=== PATIENT | male | born 1945 | race Caucasian/White ===

== ENCOUNTER 2016-08-10 01:11 | Inpatient (IN) | payer OTHER, MEDICARE ==
--- NOTE | 2016-08-10 01:18 | EDPHY ---
H & P HPI/ROS: HPI CHIEF COMPLAINT: Fall out of bed, left shoulder pain, mid thoracic pain, alcohol use HISTORY OF PRESENT ILLNESS: This patient very pleasant 71-year-old male significant past medical history for daily alcohol use, alcoholism, rotator cuff injury of his left shoulder, thyroid disease hypertension, he presents emergency room by EMS after he fell out of bed. He lives independently by himself. His recently. He has been drinking more than normal. He tells me that he fell out of the bed landing on his left shoulder and mid thoracic back. he now has left shoulder pain and mid thoracic back pain. He denies head strike, denies neck pain, denies chest pain or shortness of breath. Patient does smell of alcohol however he is not slurring his speech. Past Medical History: Multiple medical problems including anxiety, depression, hypertension, rotator cuff injury, history of C1 fracture, daily alcohol use and abuse Past Surgical History: C1 fracture requiring halo, left rotator cuff injury surgery Social History: daily alcohol use, lives independently, alone Family History: Noncontributory ROS REVIEW OF SYSTEMS: A comprehensive 10 point review of systems is otherwise negative aside from elements mentioned in the history of present illness. Exam Constitutional smells of alcohol triage nursing summary reviewed, vital signs reviewed, awake/alert. Eyes normal conjunctivae and sclera, EOMI, PERRLA. HENT normal inspection, atraumatic, moist mucus membranes, no epistaxis, neck supple/ no meningismus, no raccoon eyes. Respiratory clear to auscultation bilaterally, normal breath sounds, no respiratory distress, no wheezing. Cardiovascular left chest wall: Subcutaneous air present, does track of his left lateral neck, rate normal, regular rhythm, no murmur, no edema, distal pulses normal. Gastrointestinal soft, non-tender, no rebound, no guarding, normal bowel sounds, no distension, no pulsatile mass. Genitourinary no CVA tenderness. Musculoskeletal tender palpation left posterior scapula, also tender palpation left lateral humeral head, however full range of motion of left shoulder, distally neurovascular intact good cap refill, good pulse, also tender palpation mid thoracic, no step-offs or crepitus, there is ecchymosis present that appears to be a few days old. no midline vertebral tenderness, full range of motion, no calf swelling, no tenderness of extremities, no meningismus, good pulses, neurovascularly intact. Right hand 2nd and 3rd digit or in a finger splint with padding Skin pink, warm, & dry, no rash, skin atraumatic. Neurologic awake, alert and oriented x 3, AAOx3, moves all 4 extremities equally, motor intact, sensory intact, CN II-XII intact, normal cerebellar, normal vision, normal speech. Psychiatric normal mood/affect. Heme/Lymph/Immune no lymphadenopathy. Differential Diagnosis: Includes but is not limited to in a particular order, multiple contusions, recurrent falls from alcohol abuse, T-spine compression fracture, left shoulder contusion, left shoulder fracture, scapular fracture, humerus fracture, dislocation Medical Decision Making: This patient had an x-ray of his left shoulder, x-ray of thoracic spine to rule out significant trauma, two view chest x-ray, patient have a breath alcohol will re-evaluate. Re-evaluation: Alcohol level at this time 2:11 a.m.: 241 ED x-ray chest two view: this shows a large amount of subcutaneous air on the left-sided chest field I do not appreciate a pneumothorax there is an AC joint separation left clavicle. Due to this patient's large amount of subcutaneous air on x-ray I will perform a CT chest with IV contrast for trauma to make sure he does not multiple rib fractures and underlying pneumohemothorax. ED x-ray thoracic spine: significant degenerative joint disease, no obvious compression fracture ED x-ray left shoulder: shows AC joint separation, subcutaneous gas, otherwise unremarkable CT scan of the Chest with IV contrast. The results of the study arethis shows multiple injuries including a moderate-sized left pneumothorax, he has a scapular fracture in 2 places the acromion as well as the coracoid process, he also has a 1st anterior acute left rib fracture, he has subacute rib fractures of bilaterally the 8th 9th and 10th ribs on both sides right and left, he also has a 7th rib fracture on the right, atelectasis at the base of left lung aorta is normal The study was read by Dr. Guevara. I viewed the images myself on the PACS system. 0443: re-evaluation this time this patient is resting comfortably no acute distress denies shortness of breath his pulse ox is been 92-96% on room air. I have placed him on a non-rebreather at this time due to CT scan showing a moderate size pneumothorax, multiple rib fractures and scapular fracture. This time I have consulted trauma surgery for evaluation of this patient. 0446: I will consult Orthopedics about this patient scapular fracture. I did speak with Dexter Ellison at this time with Orthopedics he will consult on him in the morning. 0516: Spoke with Dr. Howard he did request that I do a CT scan of the head and cervical spine abdomen pelvis given the extent of his chest trauma, In that this patient has alcohol on board. However this patient has been mentating appropriately with me during the ER visit. However given the extent of trauma to his chest and alcohol I will proceed with a CT scan of his head cervical spine and of the abdomen pelvis. CT scan of the head without IV contrast The results of the study are negative for acute traumatic injury The study was read by Dr. Guevara I viewed the images myself on the PACS system. CT scan of the cervical spine without IV contrast. The results of the study are negative for acute traumatic injury. The study was read by Dr. Guevara I viewed the images myself on the PACS system. CT scan of the abdomen pelvis with IV contrast. The results of the study are negative for acute traumatic injury The study was read by Dr. Guevara I viewed the images myself on the PACS system. 0632: patient tells me he is no longer on Xarelto. At this time I did re- evaluate him he is resting comfortably he is on a non-rebreather mask due to is mild to moderate size pneumothorax. Dr. Howard is here in the emergency room evaluating the patient at this time. Source: Patient, EMS - Personal History Tetanus Vaccine Date: 2010 - Medical/Surgical History Hx Asthma: No Hx Chronic Respiratory Disease: No Hx Diabetes: No Hx Cardiac Disease: Yes Hx Renal Disease: No Hx Cirrhosis: No Hx Alcoholism: Yes Hx HIV/AIDS: No Hx Splenectomy or Spleen Trauma: No Other PMH: PMH: anxiety, bipolar, hypothyroid, HTN, chronic shoulder pain, nacrotic and etoh abuse, C1 fracture 2/2 fall. PSH: rotator cuff surgeryx2, C1 fx and fusion (in [facility]) - Social History Smoking Status: Former smoker Constitutional: Initial Vital Signs Temperature (C) 36.7 C 08/10/16 01:23 Heart Rate 73 08/10/16 01:23 Respiratory Rate 16 08/10/16 01:23 Blood Pressure 136/78 H 08/10/16 01:23 O2 Sat (%) 92 08/10/16 01:23 O2 Delivery Mode Non-Rebreather Mask O2 (L/minute) 12 Allergies/Adverse Reactions: Penicillins Allergy (Verified 07/29/16 21:56) Sulfa (Sulfonamide Antibiotics) Allergy (Verified 07/29/16 21:56) Home Medications: Medication Instructions Recorded ACETAMINOPHEN 06/07/16 Atenolol 06/07/16 Cyclobenzaprine 06/07/16 Diphenhydramine HCl 06/07/16 Divalproex ER 06/07/16 Folic Acid 06/07/16 GABAPENTIN 06/07/16 HYDROCODONE BIT/ACETAMINOPHEN 06/07/16 Herbal Drugs 06/07/16 IBUPROFEN 06/07/16 Imodium 2 mg (*) 06/07/16 Levothyroxine 06/07/16 Modafinil 06/07/16 Oxycodone HCl 06/07/16 Vitamin B12 06/07/16 ZOLPIDEM TARTRATE 06/07/16 Zantac 06/07/16 traZODone 06/07/16 Medical Decision Making - Data Points Laboratory Results: Laboratory Results 08/10/16 02:50 08/10/16 02:50 08/10/16 02:50 WBC 8.34 10^3/uL (3.80-9.50) RBC 3.87 L 10^6/uL (4.40-6.38) Hgb 13.3 L g/dL (13.7-17.5) Hct 39.5 L % (40.0-51.0) MCV 102.1 H fL (81.5-99.8) MCH 34.4 H pg (27.9-34.1) MCHC 33.7 g/dL (32.4-36.7) RDW 13.0 % (11.5-15.2) Plt Count 173 10^3/uL (150-400) MPV 9.7 fL (8.7-11.7) Neut % (Auto) 60.8 % (39.3-74.2) Lymph % (Auto) 24.7 % (15.0-45.0) [place] % (Auto) 12.2 % (4.5-13.0) Eos % (Auto) 0.6 % (0.6-7.6) Baso % (Auto) 1.1 % (0.3-1.7) Nucleat RBC Rel Count 0.0 % (0.0-0.2) Absolute Neuts (auto) 5.07 10^3/uL (1.70-6.50) Absolute Lymphs (auto) 2.06 10^3/uL (1.00-3.00) Absolute Monos (auto) 1.02 H 10^3/uL (0.30-0.80) Absolute Eos (auto) 0.05 10^3/uL (0.03-0.40) Absolute Basos (auto) 0.09 10^3/uL (0.02-0.10) Absolute Nucleated RBC 0.00 10^3/uL (0-0.01) Immature Gran % 0.6 % (0.0-1.1) Immature Gran # 0.05 10^3/uL (0.00-0.10) PT 12.7 SEC (12.0-15.0) INR 0.96 (0.83-1.16) APTT 20.8 L SEC (23.0-38.0) Sodium 140 mEq/L (134-144) Potassium 4.9 mEq/L (3.5-5.2) Chloride 103 mEq/L (97-110) Carbon Dioxide 26 mEq/l (22-31) Anion Gap 11 mEq/L (8-16) BUN 17 mg/dL (7-23) Creatinine 1.0 mg/dL (0.7-1.3) Estimated GFR > 60 Glucose 84 mg/dL (70-100) Calcium 8.6 mg/dL (8.5-10.4) Ethyl Alcohol 216 H mg/dL (0-10) Medications Given: Discontinued Medications Sodium Chloride (Ns) 1,000 mls @ 0 mls/hr IV ONCE ONE PRN Reason: Wide Open Stop: 08/10/16 02:50 Last Admin: 08/10/16 03:31 Dose: 1,000 mls Sodium Chloride (Ns) 1,000 mls @ 0 mls/hr IV ONCE ONE PRN Reason: Wide Open Stop: 08/10/16 05:16 Last Admin: 08/10/16 05:19 Dose: 1,000 mls Departure - Departure Disposition: [facility] Inpatient Acute Clinical Impression: Fall Qualifiers: Encounter type: initial encounter Qualifier Code: (W19.XXXA) Unspecified fall, initial encounter Ribs, multiple fractures Qualifiers: Encounter type: initial encounter Fracture type: closed Laterality: bilateral Qualifier Code: (S22.43XA) Multiple fractures of ribs, bilateral, initial encounter for closed fracture Scapula fracture Qualifiers: Encounter type: initial encounter Scapula location: coracoid process Fracture type: closed Fracture alignment: nondisplaced Laterality: left Qualifier Code: ( S42.135A) Nondisplaced fracture of coracoid process, left shoulder, initial encounter for closed fracture Pneumothorax Qualifiers: Pneumothorax type: traumatic Encounter type: initial encounter Qualifier Code: (S27.0XXA) Traumatic pneumothorax, initial encounter Condition: Serious
[2016-08-10] MEDS ORDERED: NS 1,000 ML IV ONE ×2 (02:49→05:15)
[2016-08-10 03:11] LABS: % IMMATURE GRANULYOCYTES 0.6 % (0.0-1.1); ABSOLUTE IMMATURE GRANULOCYTES 0.05 10^3/uL (0.00-0.10); ADD DIFF? NO; ADD MORPH? NO; ADD SCAN? NO; ATYPICAL LYMPHOCYTE FLAG 0 (0-99); FRAGMENT RBC FLAG 0 (0-99); HEMATOCRIT 39.5 % (40.0-51.0); HEMOGLOBIN 13.3 g/dL (13.7-17.5); LEFT SHIFT FLG 0 (0-99); LIPEMIA HEMOLYSIS FLAG 80 (0-99); MEAN CELL HEMOGLOBIN 34.4 pg (27.9-34.1); MEAN CELL HEMOGLOBIN CONCENTR. 33.7 g/dL (32.4-36.7); MEAN CELL VOLUME 102.1 fL (81.5-99.8); MEAN PLATELET VOLUME 9.7 fL (8.7-11.7); PLATELET CLUMPS FLAG 0 (0-99); PLATELET COUNT 173 10^3/uL (150-400); RED BLOOD CELL COUNT 3.87 10^6/uL (4.40-6.38)
[2016-08-10 03:23] LABS: INR 0.96 (0.83-1.16); PROTIME(PATIENT) 12.7 SEC (12.0-15.0)
[2016-08-10 03:26] LABS: APTT 20.8 SEC (23.0-38.0)
[2016-08-10] MEDS ORDERED: IOPAMIDOL (ISOVUE-300) 50 ML VIAL IV ONE ×2 (03:32→05:17)
[2016-08-10 03:44] LABS: ANION GAP 11 mEq/L (8-16); CALCIUM 8.6 mg/dL (8.5-10.4); CARBON DIOXIDE 26 mEq/l (22-31); CHLORIDE 103 mEq/L (97-110); GLOMERULAR FILTRATION RATE > 60; GLUCOSE 84 mg/dL (70-100); POTASSIUM 4.9 mEq/L (3.5-5.2); SODIUM 140 mEq/L (134-144)
[2016-08-10 04:05] LABS: ETHANOL SERUM 216 mg/dL (0-10)
[2016-08-10] MEDS ORDERED: ONDANSETRON DISINTEGRATING 4 MG TAB PO PRN (07:17)
[2016-08-10] MEDS ORDERED: HYDROmorphONE/DILAUDID 1 MG/ML SYR IVP PRN (07:24)
[2016-08-10] MEDS: KETOROLAC 30 MG/1 ML SDV IVP SCH ×4 (07:30→23:38)
[2016-08-10] MEDS ORDERED: LR 1,000 ML IV SCH (07:30)
[2016-08-10] MEDS ORDERED: KETOROLAC 30 MG/1 ML SDV ONE (07:35)
[2016-08-10] MEDS: LIDOCAINE 5% 1 EA PATCH TD SCH (08:48)
[2016-08-10] MEDS: FAMOTIDINE 20 MG TAB PO SCH ×2 (08:49→20:18)
[2016-08-10] MEDS ORDERED: ACETAMINOPHEN 325 MG TAB ONE (08:50)
[2016-08-10] MEDS ORDERED: ACETAMINOPHEN 500 MG TAB ONE (08:52)
[2016-08-10] MEDS: ACETAMINOPHEN 500 MG TAB PO SCH ×3 (08:52→20:22)
--- NOTE | 2016-08-10 09:43 | DX ---
Left shoulder series 3 views 0215 hours. History: Fell from bed with left shoulder pain. Findings: There is a large amount of soft tissue gas over the left hemithorax extending to the left l ower neck. There is fracture suspected of the base of the coracoid process. No additional fractures a re delineated about the left shoulder. There is elevation of the distal head left clavicle at the AC joint compatible with grade 3 injury. The left upper ribs appear to be intact. The glenohumeral joint appears to be normal. Impression: 1. Fracture suspected base of the coracoid process. 2. Grade 3 separation left AC joint. 3. Glenohumeral joint appears to be normal. 4. Soft tissue gas over the left hemithorax extending to the left lower neck.
--- NOTE | 2016-08-10 10:15 | DX ---
Thoracic spine series AP and lateral 0210 hours. History: Fell out of bed. Pain. Findings: Comparison to July 29, 2016. Vertebral body heights are well-maintained. There are no subluxations. There is stable ankylosis mid and lower thoracic spine with hypertrophic osteophytes also noted. No fractures are evident. Soft tis nilsa gas is seen left lower neck and upper hemithorax region. Impression: 1. No acute osseous abnormality seen about the thoracic spine. 2. 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 3. Soft tissue gas left lower neck.
--- NOTE | 2016-08-10 10:36 | DX ---
PA and lateral chest x-ray 0207 hours. History: Recent fall with left shoulder and back pain. Findings: Comparison to April 21, 2016. Heart size and pulmonary vasculature are normal. Moderate soft tissue gas is seen over the left hemit horax extending into the left lower neck. There is a mild left-sided pneumothorax measuring about 17 mm at the left apex. Grade 3 left AC joint separation is noted. The glenohumeral joint appears to be normal. No acute rib fractures are identified. There is old healed fracture anterolateral left 5th ri b and lateral right 8th and 9th ribs. Thoracic spine vertebral body heights are well-maintained. Ther e is ankylosis of the mid to lower thoracic spine. Impression: 1. Small left-sided pneumothorax. 2. Subcutaneous gas seen over the left hemithorax to the left lower neck. 3. Old healed bilateral rib fractures.
--- NOTE | 2016-08-10 12:02 | GHP ---
[f rep st] HISTORY AND PHYSICAL DATE OF ADMISSION: 08/10/2016 ADMITTING DIAGNOSES: 1. Intoxication. 2. Fall. 3. Pneumomediastinum and subcutaneous emphysema, left chest. 4. Multiple bilateral subacute rib fractures. 5. Small left pneumothorax. 6. Left basal atelectasis. 7. Ectatic ascending aorta at 3.9 cm. HISTORY: Mr. Jung is well-known to the emergency room. He is a 71-year-old white male, who has been drinking heavily since his several years ago. He was admitted to this hospital in 2015 for a C1 fracture. At the time, he was noted to be bipolar, abused alcohol, had hypertension, was hypothyroid, and had a pulmonary embolism. He was placed on Xarelto. He has been admitted to the emergency room for falls on 06/07/2016, 07/20/2016, , and . On 07/29/2016, there was a fracture of his 2nd digit right hand. Today there is a grade 3 left AC separation, and a suspected fracture of the base of the left coracoid process. According to his report, he was in bed with silk sheets, slid out of bed, and suffered the above injuries. His blood alcohol by breathalyzer (EMS) was 300. His alcohol admission was 216. He was seen in the emergency room and thought to have minimal injuries. A chest x-ray was performed, which showed the subcutaneous emphysema and the left AC grade 3 separation. This prompted a CT scan of the chest, which showed the above mentioned findings. Because he had more injuries than expected and was intoxicated, a CT of his head, neck, and abdomen was also performed. The preliminary reports show no distinct findings. I saw this patient in the emergency room. PAST MEDICAL HISTORY: He drinks 7-9 drinks per day. He does not smoke. He is allergic to sulfa drugs as manifested by a rash. He has bipolar changes and takes Depakote 500 mg in the morning and 1000 mg in the evening. He takes lorazepam for anxiety. He uses atenolol for tremors caused by the Depakote. He takes levothyroxine 125 mcg for hypothyroidism of 6 years' duration. He takes losartan. Surgeries include rotator cuff repair, twice on the right once the left. He has had an appendectomy. There is no history of rheumatic fever, tuberculosis, hepatitis, or Transfusions. REVIEW OF SYSTEMS: He has lenses for visual correction. He has 2 lost teeth. Review of systems otherwise negative. There are no limits on his activities. No history of steroid use. FAMILY HISTORY: Mother at age 80. Father at 73. He had several myocardial infarctions and his first 1 was at age 60. The patient's older sister in her 50s due to COPD. He is followed in by a brother, who is 64 years old. His younger brother in his 20s. PHYSICAL EXAMINATION: GENERAL: He is seen lying in the ER. He has not had any pain medication at this point. NEUROLOGIC: He is awake and alert and oriented. There are no focal or lateralizing neurologic findings. Strength is 5/5 in all muscle groups. His skull is normocephalic and atraumatic. HEENT: His neck is nontender to palpation. HEENT: His extraocular movements are intact. He has normal dental occlusion. There are no carotid bruits identified. His thyroid is not enlarged. BACK: Unremarkable to visual inspection. He is tender over his scapula. LUNGS: Breath sounds are equal and symmetrical bilaterally. CARDIAC: Shows S1, S2 to be normal. No split of S2. Without murmurs, rubs, or gallops. CHEST: Stable to AP and lateral compression. ABDOMEN: Soft and nontender. There are hypoactive bowel sounds present. MUSCULOSKELETAL: Pelvis is stable to AP and lateral compression. Extremities are ranged and found to be intact. PLAN: I will admit him for pain control. I am concerned about his ability to return to his current setting due to his fall risk. Will evaluate him for his alcohol issues. At this point, I am not going to treat the small pneumothorax, but rather follow it. This may be amenable to a Heimlich valve tube. /[id number]/MODL MTDD
--- NOTE | 2016-08-10 13:22 | GCON ---
[f rep st] CONSULTATION INPATIENT CONSULTATION DATE OF CONSULTATION: 08/10/2016 CHIEF COMPLAINT: Fall out of bed, left shoulder pain, back pain, and alcohol abuse. HISTORY OF PRESENT ILLNESS: The patient is a 71-year-old, [id number] gentleman with a recur rent history of alcoholic falls. He presented to the emergency room tonight after slipping off his b ed and landing across his left shoulder and back. He complained of back pain and shoulder pain. He has a history of [address] Montero to his right shoulder, 1 rotator cuff repair pr eviously to his left shoulder, again by Dr. Montero. He has also seen Dr. Briones for his shoulder pain previously. His has recently, and he has been increasing his alcohol usage. He has a his tory of a C1 fracture from an alcoholic fall. States that he did not lose consciousness, did not str paco his head, neck, or lower extremities. PAST MEDICAL HISTORY: Depression, hypertension, rotator cuff surgery, C1 fracture, daily alcohol use and abuse. SURGICAL HISTORY: C1 fracture requiring a halo, rotator cuff surgeries as above. SOCIAL HISTORY: Positive alcohol use, and lives alone. His of 33 years recently after a p rotracted 5-year course. REVIEW OF SYSTEMS: Negative for current chest pain, shortness of breath, belly pain. Positive for b ack pain. Denies any numbness or tingling in his lower extremities. PHYSICAL EXAMINATION: GENERAL: This is a healthy gentleman, in no acute distress. He is pleasant, cooperative with examination. MUSCULOSKELETAL: Minimal examination of his left upper extremity was carried out currently, however, he has active elevation of his arm to 45 degrees, internal rotation t o his abdomen, and external rotation of 10 degrees. He has intact sensation to light touch across th e axillary, radial, ulnar, and median nerve distributions. His right hand is in a dorsal extension b lock splint in 30 degrees of flexion at the PIP joints following a recent dislocation of his index PI P finger joint. This dressing was not removed. Bilateral lower extremities are not examined. IMAGING: Radiographs: CT of his chest and x-ray of his left shoulder specifically demonstrate a fra cture at the base of the coracoid, which extends to the midportion of the glenoid. There is slight c omminution, but no articular step-off evident. He has a fracture at the posterolateral corner of his acromion with displacement of 2-3 mm. There is degenerative change. The ball and socket are reduce d. IMPRESSION: Scapular fractures, as above, left shoulder. Chronic rotator cuff deficiency. TREATMENT PLAN: Today, I spent 40 minutes in [id number] discussion. With regard to his fractures, I have recommended passive and then active range of motion as tolerated. No resistance. Sling as n eeded for pain. Ice and elevation at rest. I have discussed that these fractures sometimes would re quire operative intervention. However, given his alcoholic abuse history and recurrent falls, I do n ot feel he is an appropriate candidate for any surgical intervention. He requires psychiatric evalua tion and treatment for advanced depression currently. He will follow up in 1 month for repeat radiog raphs of his shoulder and ongoing treatment based upon the fracture healing and/or displacement. /[id number]/MODL
--- NOTE | 2016-08-10 14:10 | CT ---
CT Chest With Contrast August 10, 2016 Indication: Trauma. Subcutaneous emphysema. Technique: 5 mm thick collimated slices were obtained through the chest following uneventful adminis tration of 90 mL Isovue-300. Sagittal multiplanar reconstructions were performed of the thoracic spin e. Dose reduction techniques were utilized. Findings: Moderate left anterobasilar pneumothorax, pneumomediastinum, and extensive subcutaneous emp hysema in the neck extending down the left chest wall and into the left flank. No right-sided pneumot horax. An acute nondisplaced anterior left 1st rib fracture is present on image 62 of series 4. An acute two site left scapular fracture consists of fracture planes coursing through the base of the acromion an d base of the coracoid process. No acute sternal or spinal fracture. Bilateral subacute low right rib fractures (7-11 on the right and 8-10 on the left) have healing callus. Diffuse idiopathic skeletal hyperostosis is present throughout the thoracic spine. No mediastinal hematoma or evidence of acute aortic injury. The ectatic ascending aorta measures 3.9 cm AP. The normal caliber descending thoracic aorta has mild calcified plaque. No pericardial or righ t-sided effusion. Small left effusion. Lungs have minimal central acinar emphysema throughout the upper and midlung zones and benign linear scars versus atelectasis in the right upper lobe and right lower lobe. Central airway is clear. No lymphadenopathy or mass present throughout the axilla, mediastinum, pulmonary rob, or imaged port ion of the upper abdomen. Impression: 1. Moderate left pneumothorax accompanied by pneumomediastinum and extensive subcutaneous emphysema a long left chest wall. 2. Acute nondisplaced anterior left 1st rib fracture. 3. Two site left scapular fracture (base of acromion and base of coracoid process). 4. No evidence of acute aortic injury. 5. Ectatic ascending aorta (3.9 cm) requires surveillance. 6. Numerous old/subacute low bilateral rib fractures. 7. Minimal centrilobular emphysema. 8. Trace left pleural effusion. The study was performed as an emergency on-call case and discussed by telephone with Dr. Martinez at 4 :40 a.m. The final interpretation is concordant with the original communication.
[2016-08-10] MEDS: clonazePAM 0.5 MG TAB PO SCH ×2 (14:18→20:17)
[2016-08-10] MEDS: LEVOTHYROXINE 125 MCG TAB PO SCH (14:18)
[2016-08-10] MEDS: LOSARTAN POTASSIUM 50 MG TAB PO SCH (14:18)
[2016-08-10] MEDS: DIVALPROEX ER 500 MG TAB PO SCH ×2 (14:18→20:17)
--- NOTE | 2016-08-10 14:23 | CT ---
CT Head (Without Contrast) August 10, 2016 Indication: Trauma. Technique: Standard noncontrast head CT protocol utilizing 5 mm thick collimated slices and field of view of 23 cm. Dose reduction techniques were utilized. Findings: No intracranial hemorrhage, mass lesion, swelling, or extraaxial fluid collection. The vent ricles are normal caliber and midline. The el and white matter has normal attenuation. No evidence of ischemia. No acute skull or facial fracture. An old nasal fracture has minimal deformity and hardw are present along the right infraorbital rim and right lateral orbital wall. Subcutaneous emphysema t racks superiorly to the skull base. No pneumocephalus. Impression: 1. Normal brain. No acute intracranial hemorrhage or contusion. 2. No acute fracture. The study was performed as an emergency on-call case and discussed by telephone with Dr. Martinez at 6 :50 a.m. The final interpretation is concordant with the original communication.
--- NOTE | 2016-08-10 14:30 | CT ---
CT Cervical Spine August 10, 2016 Indication: Trauma. Comparison: CT cervical spine dated July 29, 2016. Technique: 1.25-mm thick axial collimated slices were obtained from the occiput through superior endp late of T2. The data was reconstructed in the sagittal and coronal plane. Both soft tissue and bone w indows were reviewed. Dose reduction techniques were utilized. Findings: No acute fracture or prevertebral soft tissue swelling. The anterior cervical diskectomy an d fusion construct extending from C3-C6 is well seated. No perihardware fracture or lucency has devel oped. Incomplete fusion of the C4 and C5 vertebral bodies is unchanged. Moderate to severe bilateral neural foraminal stenoses at C4-C5, C5-C6, and C6-C7, worse on the left at C6-C7 is unchanged. [place] bcutaneous emphysema tracks up the left neck to the skull base. Impression: 1. No acute fracture or soft tissue swelling. 2. Incomplete bony fusion of the C4 and C5 vertebral bodies. C3-C6 ACDF remains well seated. 3. If the patient has persistent pain or neurologic deficits, consider cervical spine MRI. The study was performed as an emergency on-call case and discussed by telephone with Dr. Martinez at 6 :50 a.m. The final interpretation is concordant with the original communication.
--- NOTE | 2016-08-10 14:40 | CT ---
CT Scan of the Abdomen and Pelvis (With Contrast) August 10, 2016 Indication: Trauma. Technique: Dilute contrast was given orally prior to scanning. 90 mL of Isovue 300 were given intra venously by machine power injection. Multidetector helical CT imaging was performed from the diaphra gm to the symphysis pubis. Dose reduction techniques were utilized. Findings: No pneumoperitoneum, free fluid, mesenteric edema, lymphadenopathy, or mass. The liver, spleen, pancreas, adrenal glands, and kidneys all homogeneously enhance. No evidence of so lid organ laceration or contusion. The urinary bladder is well opacified with contrast. No evidence o f bladder injury or mass. No hydronephrosis. No acute lumbar spine or pelvic fracture. Numerous subacute low bilateral rib fractures are enumerate d on the chest CT reported separately. An old left inferior pubic ramus fracture is healed with mild deformity. Subcutaneous emphysema tracks down the left flank superficial to the abdominal wall muscul ature. A single 3-mm calcified stone resides in the neck of the gallbladder. The gallbladder is otherwise no rmal. No biliary dilation or evidence of common bile duct stone. The abdominal aorta is normal caliber with mild calcified plaque. No aneurysm. Impressions: 1. No evidence of solid organ or bowel injury. 2. No acute lumbar spine or pelvic fracture. 3. Cholelithiasis. 4. Normal caliber atherosclerotic abdominal aorta. The study was performed as an emergency on-call case and discussed by telephone with Dr. Martinez at 6 :50 a.m. The final interpretation is concordant with the original communication.
[2016-08-10] MEDS ORDERED: LORazepam 1 MG TAB PO PRN (16:42)
[2016-08-10] MEDS ORDERED: LORazepam 1 MG TAB PO ONE (16:42)
[2016-08-10] MEDS ORDERED: LORazepam 2 MG/ML INJ IVP PRN (16:42)
[2016-08-10] MEDS: THIAMINE HCL 500 MG in NS 100 ML IV ONE ×2 (17:16→17:39)
[2016-08-10] MEDS: LORazepam 1 MG TAB PO SCH ×2 (17:23→23:37)
--- NOTE | 2016-08-10 18:02 | DX ---
PA and Lateral Chest August 10, 2016 at 1654 Hours Indication: Trauma. Follow-up left pneumothorax. Comparison: Two-view chest from 2:07 p.m. on August 10, 2016. Findings: Extensive subcutaneous emphysema is worse in the neck and along the left chest wall since 1 4 hours prior. The left apical pneumothorax is no longer visible and the pneumomediastinum has improv ed. The lungs remain well aerated. No airspace consolidation or edema has developed. Heart size is no rmal. Abnormal alignment of the left acromioclavicular joint is unchanged. The acromial and coracoid fractures are not visible. Small left effusion is unchanged. Impression: 1. Left pneumothorax no longer visible. 2. Extensive subcutaneous emphysema limits sensitivity for detecting pneumothorax.
[2016-08-10] MEDS: ATENOLOL 25 MG TAB PO SCH (20:16)
[2016-08-10] MEDS: PATCH REMOVAL 1 EA PATCH TD SCH (20:21)
[2016-08-11] MEDS: KETOROLAC 30 MG/1 ML SDV IVP SCH ×4 (04:56→23:11)
[2016-08-11] MEDS: LEVOTHYROXINE 125 MCG TAB PO SCH ×2 (04:56→04:58)
[2016-08-11] MEDS: ACETAMINOPHEN 500 MG TAB PO SCH ×3 (04:56→23:10)
[2016-08-11] MEDS: LORazepam 1 MG TAB PO SCH ×4 (04:57→23:11)
[2016-08-11 05:17] LABS: % IMMATURE GRANULYOCYTES 0.4 % (0.0-1.1); ABSOLUTE IMMATURE GRANULOCYTES 0.02 10^3/uL (0.00-0.10); ADD DIFF? NO; ADD MORPH? NO; ADD SCAN? NO; ATYPICAL LYMPHOCYTE FLAG 10 (0-99); FRAGMENT RBC FLAG 0 (0-99); HEMATOCRIT 36.4 % (40.0-51.0); HEMOGLOBIN 12.6 g/dL (13.7-17.5); LEFT SHIFT FLG 0 (0-99); LIPEMIA HEMOLYSIS FLAG 90 (0-99); MEAN CELL HEMOGLOBIN CONCENTR. 34.6 g/dL (32.4-36.7); MEAN CELL VOLUME 101.1 fL (81.5-99.8); MEAN PLATELET VOLUME 10.2 fL (8.7-11.7); PLATELET CLUMPS FLAG 0 (0-99); PLATELET COUNT 145 10^3/uL (150-400); RED CELL DISTRIBUTION WIDTH 12.7 % (11.5-15.2)
[2016-08-11 05:25] LABS: ALANINE AMINOTRANSFERASE 30 IU/L (21-72); ALBUMIN 2.8 g/dL (3.5-5.0); ALKALINE PHOSPHATASE 89 IU/L (38-126); ANION GAP 7 mEq/L (8-16); ASPARTATE AMINOTRANSFERASE 40 IU/L (17-59); BILIRUBIN,TOTAL 1.4 mg/dL (0.1-1.4); CALCIUM 8.4 mg/dL (8.5-10.4); CARBON DIOXIDE 23 mEq/l (22-31); CHLORIDE 108 mEq/L (97-110); GLOMERULAR FILTRATION RATE > 60; GLUCOSE 81 mg/dL (70-100); MAGNESIUM 1.9 mg/dL (1.6-2.3); POTASSIUM 4.3 mEq/L (3.5-5.2); SODIUM 138 mEq/L (134-144); TOTAL PROTEIN 5.4 g/dL (6.3-8.2)
[2016-08-11] MEDS: ATENOLOL 25 MG TAB PO SCH ×2 (08:31→20:16)
[2016-08-11] MEDS: LIDOCAINE 5% 1 EA PATCH TD SCH (08:32)
[2016-08-11] MEDS: FAMOTIDINE 20 MG TAB PO SCH ×2 (08:32→20:17)
[2016-08-11] MEDS: clonazePAM 0.5 MG TAB PO SCH ×2 (08:32→20:16)
[2016-08-11] MEDS: DIVALPROEX ER 500 MG TAB PO SCH ×2 (08:32→20:17)
[2016-08-11] MEDS: THIAMINE HCL 500 MG in NS 100 ML IV SCH (08:33)
[2016-08-11] MEDS: LOSARTAN POTASSIUM 50 MG TAB PO SCH (08:35)
--- NOTE | 2016-08-11 10:48 | SOAPPROG ---
SOAP Progress Note Assessment/Plan: Assessment: 71yo male s/p falls, history of alcohol abuse, multiple rib fractures, L scapula fracture non-op per ortho. PE awake alert Chest CTA B/L, tender left chest wall to palpation RUE splint on hand (from other fall last week) LUE sling in place Plan: encouraged deep breathing, coughing, ambulation will need pysch consult 08/11/16 10:47 08/11/16 10:48 Objective: Vital Signs Temp Pulse Resp BP Pulse Ox 36.9 C 74 14 134/72 H 95 08/11/16 08:00 08/11/16 08:31 08/11/16 08:00 08/11/16 08:31 08/11/16 08:00 Laboratory Results 08/11/16 04:48 08/11/16 04:48 08/10/16 08/11/16 08/12/16 05:59 05:59 05:59 Intake Total 2300 Output Total 800 Balance 1500 PT 12.7 SEC (12.0-15.0) 08/10/16 02:50 INR 0.96 (0.83-1.16) 08/10/16 02:50 ICD10 Worksheet Patient Problems: Problems Problem Status Diagnosed Fall Acute Pneumothorax Acute Ribs, multiple fractures Acute Scapula fracture Acute Abscess of lung with pneumonia Acute Alcoholic intoxication Acute C1 cervical fracture Acute Chronic Disease Mgmt/Transitional Care Acute Pneumonia Acute Syncope and collapse Acute
--- NOTE | 2016-08-11 12:31 | SOAPPROG ---
SOAP Progress Note Assessment/Plan: Assessment: 71yo male s/p falls, history of alcohol abuse, multiple rib fractures, L scapula fracture non-op per ortho. PE awake alert Chest CTA B/L, tender left chest wall to palpation RUE splint on hand (from other fall last week) LUE sling in place Plan: encouraged deep breathing, coughing, ambulation will need pysch consult 08/11/16 10:47 08/11/16 10:48 08/11/16 12:29 in order to get psych consult: When pt medically cleared for d/c call [phone] for consult. medicine consult pending Objective: Vital Signs Temp Pulse Resp BP Pulse Ox 37.7 C 81 16 131/80 H 91 L 08/11/16 12:00 08/11/16 12:00 08/11/16 12:00 08/11/16 12:00 08/11/16 12:00 PT 12.7 SEC (12.0-15.0) 08/10/16 02:50 INR 0.96 (0.83-1.16) 08/10/16 02:50 ICD10 Worksheet Patient Problems: Problems Problem Status Diagnosed Fall Acute Pneumothorax Acute Ribs, multiple fractures Acute Scapula fracture Acute Abscess of lung with pneumonia Acute Alcoholic intoxication Acute C1 cervical fracture Acute Chronic Disease Mgmt/Transitional Care Acute Pneumonia Acute Syncope and collapse Acute
--- NOTE | 2016-08-11 16:44 | DX ---
Chest, Two Views August 11, 2016 at 1539 hours History: Trauma, left rib fractures and pneumothorax, follow up. Comparison: August 10, 2016. Findings: Extensive bilateral neck and left chest wall subcutaneous emphysema. No definite pneumoth orax although limited due to diffuse subcutaneous emphysema. Limited evaluation of the previously no bebeto left rib fractures again identified. Left AC joint separation, with superior subluxation again n oted. The heart is normal in size. Old right rib fractures. Minimal left pleural effusion. No definite p ulmonary contusion. Cervical fusion hardware noted. Impressions 1. Persistent extensive bilateral neck and left chest wall subcutaneous emphysema, without definite pneumothorax. 2. Minimal left pleural effusion, without definite pulmonary contusion. 3. Extensive subcutaneous emphysema limits sensitivity for detecting a pneumothorax.
--- NOTE | 2016-08-11 20:12 | SOAPPROG ---
SOAP Progress Note Assessment/Plan: Assessment: 71 male with etoh problems and fall with left rib fx and evidence of multiple old rib fxs/ fair amount of subcut air on left needs psych eval / afebrile Plan: resp tx/ watch for pneumo/ psych 08/11/16 20:10 Objective: Vital Signs Temp Pulse Resp BP Pulse Ox 36.8 C 80 16 126/69 H 94 08/11/16 19:25 08/11/16 19:25 08/11/16 19:25 08/11/16 19:25 08/11/16 19:25 08/10/16 08/11/16 08/12/16 05:59 05:59 05:59 Intake Total 300 Balance 300 PT 12.7 SEC (12.0-15.0) 08/10/16 02:50 INR 0.96 (0.83-1.16) 08/10/16 02:50 ICD10 Worksheet Patient Problems: Problems Problem Status Diagnosed Fall Acute Pneumothorax Acute Ribs, multiple fractures Acute Scapula fracture Acute Abscess of lung with pneumonia Acute Alcoholic intoxication Acute C1 cervical fracture Acute Chronic Disease Mgmt/Transitional Care Acute Pneumonia Acute Syncope and collapse Acute
[2016-08-11] MEDS: PATCH REMOVAL 1 EA PATCH TD SCH (20:19)
--- NOTE | 2016-08-11 22:36 | GCON ---
[f rep st] CONSULTATION MEDICINE CONSULTATION REFERRING PHYSICIAN: Dr. Mccullough HISTORY OF PRESENT ILLNESS: This is a medicine consultation at the request of Dr. Mccullough for medical evaluation and management of alcohol abuse. CHIEF COMPLAINT: Fall and chest pain. HISTORY: This is a 71-year-old man who has a past medical history of heavy alcohol abuse and multipl e falls with multiple admissions for various injuries, who presents status post another fall while dr alicea with bilateral rib fractures and a small left-sided pneumothorax. This is his 6th admission in t he last 2 months. He has had injuries that include a C1 fracture, left AC separation, digit fracture and likely scapular fracture. It sounds as if the patient has been drinking quite heavily for the l ast year after the of his . In discussion with him, he is eager to quit drinking and state s that he is confident that he will be able to do so on his own without any assistance. He does ackn owledge that this has not been the case in the past. His main complaint currently is regarding his s houlder, which he states has been hurting more after he has been trying to use it more frequently. I t was reviewed with him that he is meant to keep his arm in a sling and not use that arm, and that ma y be the reason why it is hurting more, although he does not seem to completely comprehend that. PAST MEDICAL HISTORY: 1. Alcohol abuse. 2. Bipolar disorder. 3. Hypertension. 4. Hypothyroidism. 5. PE on Xarelto. 6. Multiple orthopedic injuries status post falls. PAST SURGICAL HISTORY: 1. Rotator cuff repair twice on the right and once on left. 2. Appendectomy. FAMILY HISTORY: Noncontributory. SOCIAL HISTORY: The patient reports drinking 7-9 drinks per day. He denies tobacco use. He is rece ntly . REVIEW OF SYSTEMS: 10-point review of systems obtained, negative except as per HPI. MEDICATIONS: 1. Clonazepam. 2. Losartan. 3. Levothyroxine. 4. Depakote. 5. Atenolol. ALLERGIES: Penicillin and sulfa. PHYSICAL EXAM: VITAL SIGNS: Blood pressure 131/80, heart rate 81, respiratory rate 16, O2 saturatio n 91% on room air, temperature 37.7. GENERAL APPEARANCE: This is a disheveled, /[id number]/MODL
--- NOTE | 2016-08-11 22:45 | GCON ---
[f rep st] CONSULTATION MEDICINE CONSULTATION REFERRING PHYSICIAN: Dr. Mccullough REASON FOR CONSULTATION: This is a medicine consultation at the request of Dr. Mccullough for medical kelley luation and management of alcohol abuse. CHIEF COMPLAINT: Fall and chest pain. HISTORY: This is a 71-year-old man who has a past medical history of heavy alcohol abuse and multipl e falls with multiple admissions for various injuries, who presents status post another fall while dr alicea with bilateral rib fractures and a small left-sided pneumothorax. This is his 6th admission in t he last 2 months, and he has had injuries that include a C1 fracture, left AC separation, digit fract ure and likely scapular fracture. It sounds as if the patient has been drinking quite heavily for e last year after the of his . In discussion with him, he is eager to quite drinking and s tates that he is confident that he will be able to do so on his own without any assistance. He does acknowledge that this has not been in the case in the past. His main complaint currently is regardin g his shoulder, which he states has been hurting more after he has been trying to use it more frequen tly. It was reviewed with him that he is meant to keep his arm in the sling and not use that arm, an d that may be the reason why it is hurting more, although he does not seem to completely comprehend t hat. PAST MEDICAL HISTORY: 1. Alcohol abuse. 2. Bipolar disorder. 3. Hypertension. 4. Hypothyroidism. 5. PE on Xarelto. 6. Multiple orthopedic injuries, status post falls. PAST SURGICAL HISTORY: 1. Rotator cuff repair twice on the right and once on left. 2. Appendectomy. FAMILY HISTORY: Noncontributory. SOCIAL HISTORY: The patient reports drinking 7-9 drinks per day. He denies tobacco use. He is rece ntly . REVIEW OF SYSTEMS: 10-point review of systems obtained, negative except as per HPI. MEDICATIONS: 1. Clonazepam. 2. Losartan. 3. Levothyroxine. 4. Depakote. 5. Atenolol. ALLERGIES: Penicillin and sulfa. PHYSICAL EXAM: VITAL SIGNS: Blood pressure 131/80, heart rate 81, respiratory rate 16, O2 saturatio n 91% on room air, temperature 37.7. GENERAL APPEARANCE: This is a disheveled, man. He i s awake and alert. He is in mild distress. EYES: Anicteric. HENT: Oropharynx clear. CARDIOVASCU LAR: Regular rate and rhythm, no MRG. PULMONARY: CTA bilaterally. Normal work of breathing. ABDO MEN: Soft, nontender. Positive bowel sounds. EXTREMITIES: Left upper extremity is in a sling and has limited range of motion secondary to pain. He has a splint on his right index finger. Multiple abrasions noted. SKIN: Warm, dry, well perfuse d, other than as per above. NEURO/PSYCH: Oriented, appropriate CLINICAL DATA: Labs reviewed. Significant for white blood cell count of 4.6, hematocrit 36.4, plate lets of 145. Chemistry is unremarkable. Blood alcohol level was 216 on arrival. Chest x-ray, reviewed and interpreted independently by myself shows a left pneumothorax with extensiv e subcutaneous emphysema and multiple rib fractures. Head and neck CT did not show any acute fractur es. ASSESSMENT AND PLAN: This is a 71-year-old man with a history of heavy alcohol abuse and multiple fa lls presenting with multiple bilateral rib fractures and a small left pneumothorax, status post fall at home. 1. Multiple rib fractures and pneumothorax. This is being treated conservatively at this point. Se rial x-rays show improvement of the pneumothorax. Pain Management, IS and ambulation. 2. Alcohol abuse and withdrawal. Withdrawal symptoms seem to be improving. The patient does state that he plans to quit drinking at this point. He is adamant that he does not want to go somewhere [facility] as he does not believe in it. We will ask for a Behavioral Health nurse to meet with the patie nt and see what options could be available for him. 3. History of bipolar disorder. Unclear how this is contributing given his heavy alcohol use. He d oes have undoubtedly underlying depression, although this is difficult to evaluate given his intoxica tion and withdrawal. 4. History of pulmonary embolism. Patient was previously on Xarelto, but given his recurrent falls, this has been discontinued. 5. Hypothyroidism. Continue levothyroxine. DISPOSITION: Inpatient status. Patient is new to my care. Old records reviewed. Summarized as per HPI and past medical history. Care plan reviewed with surgery team. Thank you for this consultation. Medicine will continue to follow while patient is in-house. /[id number]/MODL
[2016-08-12 04:49] LABS: % IMMATURE GRANULYOCYTES 0.6 % (0.0-1.1); ABSOLUTE IMMATURE GRANULOCYTES 0.07 10^3/uL (0.00-0.10); ADD DIFF? NO; ADD MORPH? NO; ADD SCAN? NO; ATYPICAL LYMPHOCYTE FLAG 0 (0-99); FRAGMENT RBC FLAG 0 (0-99); HEMATOCRIT 34.1 % (40.0-51.0); HEMOGLOBIN 11.6 g/dL (13.7-17.5); LEFT SHIFT FLG 0 (0-99); LIPEMIA HEMOLYSIS FLAG 90 (0-99); MEAN CELL HEMOGLOBIN 34.9 pg (27.9-34.1); MEAN CELL VOLUME 102.7 fL (81.5-99.8); MEAN PLATELET VOLUME 10.5 fL (8.7-11.7); PLATELET CLUMPS FLAG 30 (0-99); PLATELET COUNT 125 10^3/uL (150-400); RED BLOOD CELL COUNT 3.32 10^6/uL (4.40-6.38); RED CELL DISTRIBUTION WIDTH 12.9 % (11.5-15.2)
[2016-08-12 05:01] LABS: SODIUM 141 mEq/L (134-144)
[2016-08-12 05:02] LABS: ANION GAP 8 mEq/L (8-16); CALCIUM 8.4 mg/dL (8.5-10.4); CARBON DIOXIDE 24 mEq/l (22-31); CHLORIDE 109 mEq/L (97-110); CREATININE 1.1 mg/dL (0.7-1.3); GLOMERULAR FILTRATION RATE > 60; GLUCOSE 85 mg/dL (70-100)
[2016-08-12] MEDS: LORazepam 1 MG TAB PO SCH ×4 (05:31→23:26)
[2016-08-12] MEDS: LEVOTHYROXINE 125 MCG TAB PO SCH (05:32)
[2016-08-12] MEDS: ACETAMINOPHEN 500 MG TAB PO SCH ×3 (05:32→20:48)
[2016-08-12] MEDS: KETOROLAC 30 MG/1 ML SDV IVP SCH ×4 (05:33→23:25)
[2016-08-12] MEDS: LIDOCAINE 5% 1 EA PATCH TD SCH (08:20)
[2016-08-12] MEDS: THIAMINE HCL 500 MG in NS 100 ML IV SCH (08:21)
[2016-08-12] MEDS: LOSARTAN POTASSIUM 50 MG TAB PO SCH (08:22)
[2016-08-12] MEDS: DIVALPROEX ER 500 MG TAB PO SCH ×2 (08:22→20:50)
[2016-08-12] MEDS: clonazePAM 0.5 MG TAB PO SCH ×2 (08:22→20:49)
[2016-08-12] MEDS: ATENOLOL 25 MG TAB PO SCH ×2 (08:22→20:49)
[2016-08-12] MEDS: FAMOTIDINE 20 MG TAB PO SCH ×2 (08:23→20:49)
--- NOTE | 2016-08-12 12:04 | DX ---
PA and lateral chest - August 12, 2016 History: Left first rib fracture. Recent tiny left pneumothorax. Comparison: PA and lateral chest of August 11, 2016. Findings: A tiny left apical pneumothorax is suspected, although subcutaneous emphysema limits sensi tivity. Left basilar consolidation and trace left effusion are unchanged. The right lung is clear. He art size is normal. There is no mediastinal shift. The bones are stable, including multiple acute lef t rib fractures, subacute right rib fractures, with limited visualization of a known left scapular fr acture. Type II left acromioclavicular separation is noted. Extensive subcutaneous emphysema, most pr ominent over the left neck and chest, extending into the right neck, is again noted. Impression: 1. Tiny left apical pneumothorax with extensive subcutaneous emphysema. 2. Stable left basilar consolidation with trace effusion. Findings discussed with Elizabeth, the patient's nurse today at 1155 hours.
--- NOTE | 2016-08-12 15:45 | HOSPPROG ---
Hospitalist Progress Note Assessment/Plan: 71 yo M with hx of heavy etoh abuse and multiple falls while intoxicated presenting with multiple rib fx and L ptx # multiple rib fx's: with associated small left sided ptx, not requiring CT. Pain controlled. Admited to surgical service who are following serial cxr's. continue pain mgmt, IS, ambulation. # etoh abuse: without e/o signficiant w/d. Patient states he is very eager to quit drinking but does not want to do AA. Psych eval ordered, however given that his main issues are with substance abuse unclear what they will be able to offer. Monitoring for w/d # depression/acute grief response: since the of patient's , he has been drinking heavily as above. Needs psychiatric evaluation at some point but difficult given concurrent etoh abuse. # hx of PE: off of AC given recurrent falls # hypothyroid: continue op meds # dispo: IP status, OK for discharge when surgery feels he is stable in regards to PTX Subjective: no significant overnight events, eager to dc home Objective: Vital Signs Temp Pulse Resp BP Pulse Ox 36.8 C 65 16 136/86 H 95 08/12/16 15:19 08/12/16 15:19 08/12/16 15:19 08/12/16 15:19 08/12/16 15:19 Laboratory Results 08/12/16 04:36 08/12/16 04:36 08/11/16 08/12/16 08/13/16 05:59 05:59 05:59 Intake Total 700 425 Output Total 1 Balance 700 424 PT 12.7 SEC (12.0-15.0) 08/10/16 02:50 INR 0.96 (0.83-1.16) 08/10/16 02:50 - Physical Exam Constitutional: no apparent distress, chronically ill appearing, unkempt Eyes: PERRL Ears, Nose, Mouth, Throat: moist mucous membranes Cardiovascular: regular rate and rhythym Respiratory: no respiratory distress, no rales or rhonchi Gastrointestinal: normoactive bowel sounds, soft, non-tender abdomen Skin: warm, normal color Musculoskeletal: full muscle strength Neurologic: AAOx3 Psychiatric: interacting appropriately ICD10 Worksheet Patient Problems: Problems Problem Status Diagnosed Fall Acute Pneumothorax Acute Ribs, multiple fractures Acute Scapula fracture Acute Abscess of lung with pneumonia Acute Alcoholic intoxication Acute C1 cervical fracture Acute Chronic Disease Mgmt/Transitional Care Acute Pneumonia Acute Syncope and collapse Acute
--- NOTE | 2016-08-12 17:23 | TRAUMAPN ---
Assessment/Plan: 08/12/16 PAD#2 Assessment: VSS, afebrile, WBC up, CXR shows small ptx ( stable), IS to 2500cc Plan: Re-assess in AM with CBC and CXR Subjective: none Objective: Vital Signs Temp Pulse Resp BP Pulse Ox 36.8 C 65 16 136/86 H 95 08/12/16 15:19 08/12/16 15:19 08/12/16 15:19 08/12/16 15:19 08/12/16 15:19 Laboratory Results 08/12/16 04:36 08/12/16 04:36 08/11/16 08/12/16 08/13/16 05:59 05:59 05:59 Intake Total 700 965 Output Total 1 Balance 700 964 PT 12.7 SEC (12.0-15.0) 08/10/16 02:50 INR 0.96 (0.83-1.16) 08/10/16 02:50 Physical Exam - Physical Exam General Appearance: WD/WN, alert, no apparent distress Neck: non-tender, full range of motion, supple Respiratory: lungs clear, normal breath sounds Cardiac/Chest: regular rate, rhythm Abdomen: normal bowel sounds, non-tender, soft Male Genitalia: deferred Rectal: deferred Back: Normal inspection Skin: normal color Neuro/Psych: alert, normal mood/affect, oriented x 3 Time Spent w/Patient (minutes): 25
[2016-08-12] MEDS: PATCH REMOVAL 1 EA PATCH TD SCH (20:51)
[2016-08-13] MEDS: ACETAMINOPHEN 500 MG TAB PO SCH ×2 (05:33→14:38)
[2016-08-13] MEDS: KETOROLAC 30 MG/1 ML SDV IVP SCH ×2 (05:34→12:35)
[2016-08-13] MEDS: LEVOTHYROXINE 125 MCG TAB PO SCH (05:34)
[2016-08-13] MEDS: LORazepam 1 MG TAB PO SCH ×2 (05:34→12:34)
[2016-08-13 05:49] LABS: % IMMATURE GRANULYOCYTES 0.5 % (0.0-1.1); ABSOLUTE IMMATURE GRANULOCYTES 0.05 10^3/uL (0.00-0.10); ADD DIFF? NO; ADD MORPH? NO; ADD SCAN? NO; ATYPICAL LYMPHOCYTE FLAG 0 (0-99); FRAGMENT RBC FLAG 0 (0-99); HEMATOCRIT 34.7 % (40.0-51.0); HEMOGLOBIN 11.8 g/dL (13.7-17.5); LEFT SHIFT FLG 0 (0-99); LIPEMIA HEMOLYSIS FLAG 90 (0-99); MEAN CELL HEMOGLOBIN 34.5 pg (27.9-34.1); MEAN CELL VOLUME 101.5 fL (81.5-99.8); MEAN PLATELET VOLUME 10.8 fL (8.7-11.7); PLATELET CLUMPS FLAG 0 (0-99); PLATELET COUNT 131 10^3/uL (150-400); RED BLOOD CELL COUNT 3.42 10^6/uL (4.40-6.38); RED CELL DISTRIBUTION WIDTH 12.6 % (11.5-15.2)
[2016-08-13 06:04] LABS: ANION GAP 8 mEq/L (8-16); CALCIUM 8.6 mg/dL (8.5-10.4); CARBON DIOXIDE 23 mEq/l (22-31); CHLORIDE 109 mEq/L (97-110); CREATININE 0.9 mg/dL (0.7-1.3); GLOMERULAR FILTRATION RATE > 60; GLUCOSE 76 mg/dL (70-100); SODIUM 140 mEq/L (134-144)
[2016-08-13 07:21] VITALS: RESP 16; O2SAT 93
[2016-08-13] MEDS: ATENOLOL 25 MG TAB PO SCH (07:46)
[2016-08-13] MEDS: DIVALPROEX ER 500 MG TAB PO SCH (07:46)
[2016-08-13] MEDS: clonazePAM 0.5 MG TAB PO SCH (07:47)
[2016-08-13] MEDS: LOSARTAN POTASSIUM 50 MG TAB PO SCH (07:47)
[2016-08-13] MEDS: FAMOTIDINE 20 MG TAB PO SCH (07:47)
[2016-08-13] MEDS: LIDOCAINE 5% 1 EA PATCH TD SCH (07:48)
[2016-08-13] MEDS ORDERED: THIAMINE HCL 100 MG TAB PO SCH (09:00)
[2016-08-13] MEDS ORDERED: HYDROmorphONE/DILAUDID 2 MG TAB PO PRN (12:50)
--- NOTE | 2016-08-13 13:23 | TRAUMAPN ---
Assessment/Plan: 08/12/16 PAD#2 Assessment: VSS, afebrile, WBC up, CXR shows small ptx ( stable), IS to 2500cc Plan: Re-assess in AM with CBC and CXR 08/13/2016 PAD#3 Assessment: Patient currently to be seen by [facility] No complaints, WBC down slightly, CXR pending Plan: Possible discharge pending CXR Will use ASA instead of Xarelto due to fall HX Subjective: no complaints Objective: Vital Signs Temp Pulse Resp BP Pulse Ox 36.7 C 65 16 141/75 H 93 08/13/16 11:21 08/13/16 11:21 08/13/16 11:21 08/13/16 11:21 08/13/16 11:21 Laboratory Results 08/13/16 05:23 08/13/16 05:23 08/12/16 08/13/16 08/14/16 05:59 05:59 05:59 Intake Total 700 1415 350 Output Total 1 Balance 700 1414 350 PT 12.7 SEC (12.0-15.0) 08/10/16 02:50 INR 0.96 (0.83-1.16) 08/10/16 02:50 Physical Exam - Physical Exam General Appearance: WD/WN, alert, no apparent distress Neck: non-tender, full range of motion, supple Respiratory: lungs clear, normal breath sounds Cardiac/Chest: regular rate, rhythm Abdomen: normal bowel sounds, non-tender, soft Male Genitalia: deferred Rectal: deferred Back: Normal inspection Skin: normal color, warm/dry Extremities: normal range of motion, non-tender Neuro/Psych: no motor/sensory deficits, alert, normal mood/affect, oriented x 3 Time Spent w/Patient (minutes): 25
--- NOTE | 2016-08-13 13:52 | GDS ---
[f rep st] DISCHARGE SUMMARY DISCHARGE DIAGNOSES: 1. Fall. 2. Left 1st rib fracture. 3. History of multiple old rib fractures. 4. Second digit fracture (splinted, older injury). 5. Left olecranon fracture. 6. Pneumothorax. 7. Alcohol abuse. 8. Bipolar disorder. 9. Hypertension. 10. Hypothyroidism. 11. Factor V Leiden deficiency with a history of pulmonary embolism. 12. History of olecranon fracture. HISTORY: This patient was admitted for treatment of a hemopneumothorax and rib fractures. The hemothorax was minimal. He has posttraumatic stress disorder secondary to loss of his 9 years ago. He has been seen in the emergency department approximately 6 times since June for complications of alcohol and fall. His case was complicated with the fact that he is on Xarelto for his factor V Leiden deficiency. That has been stopped and will not be continued because of his frequent fall history and inability to reverse the Xarelto. Aspirin will be substituted. He has been admitted to the hospital. His pneumothorax has been stable, although a final chest x-ray is pending today. Presumably, it will show things to be continued stable and he will be set for discharge. There have been no procedures performed. He has been seen by [facility]. He is interested in alcohol cessation but is not interested in a 12-step program at this time. He will be dismissed to home. His condition is good and no restrictions on his diet and no restrictions on the texture of his diet. ACTIVITY: He is to keep his left arm in a sling. He will be able to do range of motion as tolerated. He is to follow up in [address] Ellison or his partners, Mariah or Anali. He will receive repeat radiographs at that time. MEDICATIONS: Include aspirin 325 mg twice a day as a subtitle for Xarelto given his history of falls and inability to acutely reverse the Xarelto at this time. He will continue on atenolol 25 mg twice a day. He will take Depakote 1000 mg p.o. q.h.s. and Depakote 500 mg p.o. daily. He will take levothyroxine 125 mcg daily. He will take Cozaar 50 mg daily. He will use Klonopin 0.5 mg twice a day. He will be continued on Tylenol 1000 mg p.o. q.8h. He will use Dilaudid 2 mg 1-2 tabs every 4 hours as needed for pain. He will use a Lidoderm patch 12 hours every day. He is to use a sling, as mentioned. His discharge will be pending evaluation of his chest x-ray. /[id number]/MODL MTDD
[2016-08-13 15:54] VITALS: BP 159/86; PULSE 68; TEMP 97.8
--- NOTE | 2016-08-13 15:58 | DX ---
PA and lateral chest x-ray 1521 hours. History: Followup pneumothorax. Findings: Comparison to August 12, 2016. The left apical pneumothorax is no longer delineated. Heart size and pulmonary vasculature remain nor mal. Subcutaneous gas is once again seen over the left hemithorax and lower neck bilaterally similar to the prior study. There is no evidence of consolidation or effusion. Osseous structures are unchang ed. Ankylosis is once again noted of the mid to lower thoracic spine. Old healed bilateral rib fractu res are evident. Impression: 1. No evidence of residual pneumothorax. 2. Stable subcutaneous gas.
== END 2016-08-13 17:03 | disposition home or self-care (01) | DRG 200 ==
LOC: EDUNIT# → EEVIPCON 01:11 → INTOOBSV 06:42 → F3N 08:03 → OBSVTOIN 08-11 10:46
PROVIDERS: ADMIT Surgery; ATTEND Surgery
DX: S27.2XXA Traumatic hemopneumothorax, initial encounter (principal); S22.32XA Fracture of one rib, left side, initial encounter for closed fracture; S42.102A Fracture of unspecified part of scapula, left shoulder, initial encounter for closed fracture; S52.022A Displaced fracture of olecranon process without intraarticular extension of left ulna, initial encounter for closed fracture; T79.7XXA Traumatic subcutaneous emphysema, initial encounter; W06.XXXA Fall from bed, initial encounter; Y92.003 Bedroom of unspecified non-institutional (private) residence as the place of occurrence of the external cause; F10.10 Alcohol abuse, uncomplicated; F11.10 Opioid abuse, uncomplicated; F32.9 Major depressive disorder, single episode, unspecified; D68.2 Hereditary deficiency of other clotting factors; I77.819 Aortic ectasia, unspecified site; E03.9 Hypothyroidism, unspecified; I10 Essential (primary) hypertension; F31.9 Bipolar disorder, unspecified; Z98.1 Arthrodesis status; Z87.891 Personal history of nicotine dependence
CPT/HCPCS: 92523-GN; 97110-GP; 97116-GP; 97162-GP; 97166-GO; 97530-GO; 97530-GP; G0378; G0480; G8978-GP-CJ; G8979-GP-CI; G8980-GP-CI; G8987-GO-CK; G8988-GO-CI; G9168-GN-CH; G9169-GN-CH; G9170-GN-CH; J1885; J3411; Q9967

== ENCOUNTER → 2016-09-17 | Outpatient (CLI) | payer OTHER, MEDICARE | LOC: BMCIMAGING 14:18 | PROVIDERS: ATTEND Orthopaedic Surgery | DX: S42.132D Displaced fracture of coracoid process, left shoulder, subsequent encounter for fracture with routine healing (principal) ==

== ENCOUNTER → 2016-12-20 | Outpatient (CLI) | payer OTHER, MEDICARE | LOC: FIMAGING 13:16 | PROVIDERS: ATTEND Orthopaedic Surgery | DX: M75.102 Unspecified rotator cuff tear or rupture of left shoulder, not specified as traumatic (principal); S42.132A Displaced fracture of coracoid process, left shoulder, initial encounter for closed fracture; S43.432A Superior glenoid labrum lesion of left shoulder, initial encounter; M19.012 Primary osteoarthritis, left shoulder; Z98.890 Other specified postprocedural states ==

== ENCOUNTER 2017-02-02 06:36 | Day surgery (SDC) | payer OTHER, MEDICARE ==
--- NOTE | 2017-02-02 06:36 | PDHPUP ---
History & Physical Update H&P update statement: This history and physical update is based on an assessment of the patient which was completed after admission or registration (within 24 hours), but prior to the surgery/procedure.
[2017-02-02] MEDS ORDERED: oxyCODONE IR 5 MG TAB PO PRN (06:38)
[2017-02-02] MEDS ORDERED: BUPIVACAINE/EPI 0.5% 30 ML SDV ONE (07:21)
[2017-02-02] MEDS ORDERED: CLINDAMYCIN 900 MG/DEXTROSE 50 ML IV ONE (07:45)
[2017-02-02] MEDS ORDERED: CLINDAMYCIN 900 MG/DEXTROSE/50 ML BAG IV ONE (07:47)
[2017-02-02] MEDS ORDERED: MIDAZOLAM 2 MG/2 ML VIAL IVP ONE (08:20)
--- NOTE | 2017-02-02 08:22 | PDANEPAE ---
ANE History of Present Illness Patient presents for left RCR ANE Past Medical History - Cardiovascular History Hx Hypertension: Yes Hx Arrhythmias: No Hx Chest Pain: No Hx Coronary Artery / Peripheral Vascular Disease: No Hx CHF / Valvular Disease: No Hx Palpitations: No Cardiovascular History Comment: pcp monitors bp - Pulmonary History Hx COPD: No Hx Asthma/Reactive Airway Disease: No Hx Recent Upper Respiratory Infection: No Hx Oxygen in Use at Home: No Hx Sleep Apnea: No Sleep Apnea Screening Result - Last Documented: Positive Pulmonary History Comment: fito triggers no dx. aspiration pna x2 in the last 7 yrs - Neurologic History Hx Cerebrovascular Accident: No Hx Seizures: No Hx Dementia: No Neurologic History Comment: hx of c spine fusion - Endocrine History Hx Diabetes: No Endocrine History Comment: hypothyroidism - Renal History Hx Renal Disorders: No - Liver History Hx Hepatic Disorders: No Hepatic History Comment: alcohol abuse in past - Neurological & Psychiatric Hx Hx Neurological and Psychiatric Disorders: Yes Neurological / Psychiatric History Comment: bipolar 2- anxiety and depression - Cancer History Hx Cancer: No - Congenital Disorder History Hx Congenital Disorders: No - GI History Hx Gastrointestinal Disorders: No Gastrointestinal History Comment: colonoscopt 2012-benign polyp - Other Health History Other Health History: wears reading glasses. lives alone. 1.5 yrs ago - Chronic Pain History Chronic Pain: Yes (neck, R shoulder) - Surgical History Prior Surgeries: Cspine fusion 05/2013, 2007. R shoulder RTC x2. L shoulder x1. L arm gerard 1998. orbital fx 1995 ANE Review of Systems - Exercise capacity Exercise capacity: >=4 METS METS (RN): 4 METS ANE Patient History - Allergies Allergies/Adverse Reactions: Penicillins Allergy (Verified 01/28/17 14:43) Unknown Sulfa (Sulfonamide Antibiotics) Allergy (Verified 01/28/17 14:43) Rash - Home Medications Home Medications: Atenolol [Tenormin 25 mg (*)] 08/10/16 [Last Taken 08/09/16] Divalproex ER [Depakote ER 500 MG (*)] 08/10/16 [Last Taken 08/09/16] Levothyroxine [Synthroid 125 mcg (*)] 08/10/16 [Last Taken 08/09/16] Losartan Potassium [Cozaar 50 mg (*)] 08/10/16 [Last Taken 08/09/16] Acetaminophen [Tylenol ES 500 mg (*)] 01/28/17 [Last Taken Unknown] Aspirin 81mg (*) 01/28/17 [Last Taken 01/28/17] Modafinil 01/28/17 [Last Taken Unknown] Altheimer 5/325 (*) 01/28/17 [Last Taken Unknown] - NPO status NPO Since - Liquids (Date): 02/01/17 NPO Since - Liquids (Time): 05:30 NPO Since - Solids (Date): 02/01/17 NPO Since - Solids (Time): 20:00 - Smoking Hx Smoking Status: Former smoker - Family Anes Hx Family Hx Anesthesia Complications: none ANE Labs/Vital Signs - Vital Signs Blood Pressure: 119/65 Heart Rate: 49 Respiratory Rate: 16 O2 Sat (%): 94 Height: 173.99 cm Weight: 67.132 kg ANE Physical Exam - Airway Neck exam: FROM Mallampati Score: Class 1 Mouth exam: normal dental/mouth exam - Pulmonary Pulmonary: no respiratory distress - Cardiovascular Cardiovascular: regular rate and rhythym - ASA Status ASA Status: II ANE Anesthesia Plan Anesthesia Plan: GA w LMA Regional Anesthesia: single shot NB (rba discussed)
[2017-02-02] MEDS ORDERED: LR 1,000 ML IV ONE (08:26)
[2017-02-02] MEDS ORDERED: LIDOCAINE 1% 2 ML INJ ID PRN (08:26)
[2017-02-02] MEDS ORDERED: PROPOFOL 200 MG/20 ML VIAL ONE (08:31)
[2017-02-02] MEDS ORDERED: fentaNYL 100 MCG/2 ML INJ ONE (08:31)
[2017-02-02] MEDS ORDERED: ROPIVACAINE HCL 150 MG/30 ML INJ ONE (08:35)
[2017-02-02] MEDS ORDERED: clonIDINE 1 MG/10 ML VIAL EP ONE (08:35)
[2017-02-02] MEDS ORDERED: ATROPINE SULFATE 1 MG/ML VIAL ONE (08:55)
[2017-02-02] MEDS ORDERED: DEXAMETHASONE 4 MG/ML VIAL ONE (09:27)
[2017-02-02] MEDS ORDERED: GLYCOPYRROLATE 0.2 MG/1 ML VIAL ONE (09:40)
[2017-02-02] MEDS ORDERED: NALOXONE HCL 0.4 MG/ML INJ IVP PRN (10:03)
[2017-02-02] MEDS ORDERED: fentaNYL 100 MCG/2 ML INJ IVP PRN (10:04)
[2017-02-02] MEDS ORDERED: ONDANSETRON 4 MG/2 ML VIAL IVP PRN (10:04)
--- NOTE | 2017-02-02 10:47 | POSTANESTH ---
Post Anesthetic Evaluation Cardiovascular Status: Normal, Stable Respiratory Status: Normal, Stable Level of Consciousness/Mental Status: Can Participate in Eval Pain Control: Adequate, Prn Tx Ordered Nausea/Vomiting Control: Adequate, Prn Tx Ordered Complications Possibly Related to Anesthesia: None Noted
[2017-02-02 12:43] VITALS: PULSE 59; RESP 16; TEMP 97.9
[2017-02-02 13:18] VITALS: BP 118/60; O2SAT 88
== END 2017-02-02 13:40 | disposition home or self-care (01) ==
LOC: FSGY 06:36
PROVIDERS: ATTEND Orthopaedic Surgery
PROC: 3E0T3CZ (ICD-10-PCS; principal; 2017-02-02 08:30)
PROC: 0LM20ZZ Reattachment of Left Shoulder Tendon, Open Approach (ICD-10-PCS; principal; 2017-02-02 08:30)
PROC: 0LQ20ZZ Repair Left Shoulder Tendon, Open Approach (ICD-10-PCS; principal; 2017-02-02 08:30)
PROC: 0MB24ZZ Excision of Left Shoulder Bursa and Ligament, Percutaneous Endoscopic Approach (ICD-10-PCS; principal; 2017-02-02 08:30)
DX: M75.112 Incomplete rotator cuff tear or rupture of left shoulder, not specified as traumatic (principal); M75.42 Impingement syndrome of left shoulder; M75.22 Bicipital tendinitis, left shoulder; I10 Essential (primary) hypertension; E03.9 Hypothyroidism, unspecified; Z98.1 Arthrodesis status
CPT/HCPCS: C1713; J0171; J0461; J0735; J1100; J2250; J2704; J2795; J3010

== ENCOUNTER → 2017-03-09 | Outpatient (CLI) | payer OTHER, MEDICARE | LOC: BMCIMAGING 13:17 | PROVIDERS: ATTEND Internal Medicine | DX: I65.23 Occlusion and stenosis of bilateral carotid arteries (principal) ==

== ENCOUNTER → 2017-04-18 | Outpatient (CLI) | payer OTHER, MEDICARE | LOC: FIMAGING 07:57 | PROVIDERS: ATTEND Orthopaedic Surgery | DX: S43.432A Superior glenoid labrum lesion of left shoulder, initial encounter (principal); Z98.890 Other specified postprocedural states ==

== ENCOUNTER → 2017-04-21 | Outpatient (CLI) | payer OTHER, MEDICARE | LOC: FCPNEURO 20:00 | PROVIDERS: ATTEND Psychiatry & Neurology Sleep Medicine | DX: G47.31 Primary central sleep apnea (principal); G47.33 Obstructive sleep apnea (adult) (pediatric) ==

== ENCOUNTER → 2017-05-05 | Outpatient (CLI) | payer OTHER, MEDICARE | LOC: BMCIMAGING 13:25 | PROVIDERS: ATTEND Orthopaedic Surgery Hand Surgery | DX: S63.210A Subluxation of metacarpophalangeal joint of right index finger, initial encounter (principal) ==

== ENCOUNTER 2017-06-20 14:31 | Emergency (ER) | payer OTHER, MEDICARE ==
--- NOTE | 2017-06-20 14:47 | EDPHY ---
H & P Stated Complaint: nausea/generalized abd pain since yesterday HPI/ROS: CHIEF COMPLAINT: Upper abdominal pain HISTORY OF PRESENT ILLNESS: The patient is a 71 y/o male complaining of upper abdominal pain, nausea, and vomiting since last night. The pain is dull, nothing seems to make it bairon or worse. In August 2016, he was admitted for a pneumothorax after falling while intoxicated. He admitted to daily alcohol use during that visit and had a blood alcohol level of 0.216. Today he states he is not consuming alcohol. Due to his discomfort he has been unable to sleep. He last vomited at 10:00, 5 hours ago. He has had a small bowel movement since last night. Denies alcohol, tobacco, or illicit drug use. Denies diarrhea, fever, dysuria, chest pain or other pertinent symptoms. Prior medical records reviewed including discharge summary with Dr. Howard on . REVIEW OF SYSTEMS: A ten point review of systems was performed and is negative with the exception of the items mentioned in the HPI. 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 He is . General Appearance: Alert. Vital signs reviewed. Blood pressure 149/84. Afebrile. Eyes: Pupils equal and round, no conjunctival injection, no discharge. Anicteric. ENT, Mouth: Mucous membranes are dry, no oropharyngeal erythema or edema. Neck: No lymphadenopathy, supple. Respiratory: Lungs are clear to auscultation; no wheezes, rales, or rhonchi. Cardiovascular: Regular rate and rhythm; no murmur, rub, or gallop. Gastrointestinal: Moderate mid-epigastric, RUQ, and LUQ tenderness to palpation. Abdomen is soft, no masses or organomegaly, bowel sounds normal. Skin: Warm and dry, no rashes on exposed skin, normal color. Back: Nontender to palpation over the thoracolumbar spine. No CVAT. Extremities: No lower extremity edema, no calf tenderness or swelling. Neurological: Alert and oriented. Moving all four extremities easily and equally. Psychiatric: Normal affect. - Personal History Current Tetanus/Diphtheria Vaccine: Yes Tetanus Vaccine Date: 2010 - Medical/Surgical History Hx Asthma: No Hx Chronic Respiratory Disease: No Hx Diabetes: No Hx Cardiac Disease: No Hx Renal Disease: No Hx Cirrhosis: No Hx Alcoholism: Yes Hx HIV/AIDS: No Hx Splenectomy or Spleen Trauma: No Other PMH: PMH: anxiety, bipolar, hypothyroid, HTN, chronic right shoulder pain (torn rotator cuff), nacrotic and etoh abuse, C1 fracture in july 2015, falls. PSH: rotator cuff surgeryx2, C1 fx and fusion (in [facility]) - Social History Smoking Status: Former smoker Constitutional: Initial Vital Signs Temperature (C) 36.6 C 06/20/17 14:38 Heart Rate 82 06/20/17 14:38 Respiratory Rate 20 06/20/17 14:38 Blood Pressure 149/84 H 06/20/17 14:38 O2 Sat (%) 100 06/20/17 14:38 O2 Delivery Mode Room Air Allergies/Adverse Reactions: Penicillins Allergy (Verified 06/22/17 14:11) Unknown Sulfa (Sulfonamide Antibiotics) Allergy (Verified 06/22/17 14:11) Rash Home Medications: Medication Instructions Recorded Aspirin EC [Aspirin EC 81 mg (*)] 81 mg PO HS 06/22/17 Atenolol [Tenormin 25 mg (*)] 25 mg PO BID 06/22/17 Atorvastatin Calcium [Lipitor 20 20 mg PO DAILY 06/22/17 mg (*)] Divalproex ER [Depakote ER 500 MG 1,000 mg PO HS 06/22/17 (*)] Divalproex ER [Depakote ER 500 MG 500 mg PO DAILY 06/22/17 (*)] Escitalopram Oxalate [Lexapro] 5 mg PO DAILY 06/22/17 Gabapentin [Neurontin 400 MG (*)] 400 mg PO BID 06/22/17 Levothyroxine [Synthroid 125 mcg 125 mcg PO DAILY06 06/22/17 (*)] Losartan Potassium 100 mg PO DAILY 06/22/17 Melatonin [Melatonin 3 MG (*)] 3 mg PO HS 06/22/17 Modafinil [Provigil] 200 mg PO DAILY 06/22/17 QUEtiapine FUMARATE [Seroquel 50 150 mg PO DAILY 06/22/17 mg (*)] oxyCODONE IR [Oxycodone Ir (*)] 5 mg PO Q4 PRN 06/22/17 Medical Decision Making ED Course/Re-evaluation: The patient is a 71 y/o male presenting with abdominal pain, nausea, and vomiting since last night. On exam he has moderate mid-epigastric, RUQ, and LUQ tenderness to palpation. 0.5mg Dilaudid, 20mg IV Pepcid, 4mg IV Zofran, and 1L IV NS administered. 1634: Patient has a WBC of 18,000 1635: Reassessed patient. He reports his pain is now 5. He has not had vomiting and his nausea is much improved. On examination he continues with some mid epigastric tenderness, less than head the time of my 1st exam. There is no guarding. 17 30: Re-examined. His pain is much much better. On examination he has very minimal midepigastric tenderness, no guarding. He has not had vomiting. He feels much better and I am optimistic that he will be able to return home. 1810: Patients urine dip is concentrated and reveals there is blood present, I will send it for a formal UA. UA without signs of infection. LFTs and lipase normal. I do not think that this is pancreatitis or biliary colic. His WBC of 18,000 is concerning but I have not found evidence of infection. PUD/gastritis are high on my list of differential diagnoses. 1909: Reassessed patient, he continues to feel better. We discussed imaging, but he has had consistent improvement while in ED. It has been four hours since he had 0.5 mg of IV dilaudid. Return precautions provided; patient is comfortable with this plan. Differential Diagnosis: I considered a ddx that includes but is not limited to pancreatitis, PUD/ gastritis, cholecystitis, appendicitis, SBO, viscous perforation. - Data Points Laboratory Results: Laboratory Results 06/20/17 15:05 06/20/17 15:05 Medications Given: Discontinued Medications Hydromorphone HCl (Dilaudid) 0.5 mg IVP EDNOW ONE Stop: 06/20/17 14:58 Last Admin: 06/20/17 15:21 Dose: 0.5 mg Sodium Chloride (Ns) 1,000 mls @ 0 mls/hr IV EDNOW ONE; Wide Open PRN Reason: Protocol Stop: 06/20/17 14:58 Last Admin: 06/20/17 15:20 Dose: 1,000 mls Famotidine/Sodium Chloride (Pepcid 20 Mg (Premix)) 50 mls @ 200 mls/hr IV EDNOW ONE Stop: 06/20/17 15:11 Last Admin: 06/20/17 15:20 Dose: 50 mls Ondansetron HCl (Zofran) 4 mg IVP EDNOW ONE Stop: 06/20/17 14:58 Last Admin: 06/20/17 15:20 Dose: 4 mg Ondansetron HCl (Zofran Odt 4 Mg Prepack#2) 1 btl TAKEHOME EDNOW ONE Stop: 06/20/17 19:10 Last Admin: 06/20/17 19:20 Dose: 1 btl Departure - Departure Disposition: Home, Routine, Self-Care Clinical Impression: Nausea & vomiting Qualifiers: Vomiting type: unspecified Vomiting Intractability: non-intractable Qualified Code(s): R11.2 - Nausea with vomiting, unspecified Condition: Good Instructions: Ondansetron (By mouth), Acute Nausea and Vomiting (ED) Additional Instructions: There was some blood in your urine, you should mention this when you follow-up with your primary care provider. Increase fluid intake. Follow-up with your primary doctor within 72 hours. Return to the Emergency Department for fever, chest pain, shortness of breath, increasing pain, or other worsening of condition. Referrals: Theresa Palomares MD [Primary Care Provider] - As per Instructions Report Scribed for: Luisa Mclaughlin Report Scribed by: Casandra Lara Date of Report: 06/20/17 Time of Report: 15:06 Physician Review and Approval Statement: 06/20/17 14:47 Portions of this note were transcribed by the senior medical writer. I, Dr. Luisa Mclaughlin, personally performed the history, physical exam, and medical decision- making; and confirmed the accuracy of the information in the transcribed note.
[2017-06-20] MEDS ORDERED: HYDROmorphONE/DILAUDID 1 MG/ML INJ IVP ONE (14:57)
[2017-06-20] MEDS ORDERED: FAMOTIDINE 20 MG/NACL 50 ML IV ONE (14:57)
[2017-06-20] MEDS ORDERED: ONDANSETRON 4 MG/2 ML VIAL IVP ONE (14:57)
[2017-06-20] MEDS ORDERED: NS 1,000 ML IV ONE (14:57)
[2017-06-20 15:21] LABS: % IMMATURE GRANULYOCYTES 0.5 % (0.0-1.1); ABSOLUTE IMMATURE GRANULOCYTES 0.09 10^3/uL (0.00-0.10); ADD DIFF? NO; ADD MORPH? NO; ADD SCAN? NO; ATYPICAL LYMPHOCYTE FLAG 0 (0-99); FRAGMENT RBC FLAG 0 (0-99); HEMATOCRIT 43.8 % (40.0-51.0); HEMOGLOBIN 15.5 g/dL (13.7-17.5); LEFT SHIFT FLG 0 (0-99); LIPEMIA HEMOLYSIS FLAG 90 (0-99); MEAN CELL HEMOGLOBIN 31.6 pg (27.9-34.1); MEAN CELL HEMOGLOBIN CONCENTR. 35.4 g/dL (32.4-36.7); MEAN CELL VOLUME 89.2 fL (81.5-99.8); MEAN PLATELET VOLUME 10.9 fL (8.7-11.7); PLATELET CLUMPS FLAG 0 (0-99); PLATELET COUNT 162 10^3/uL (150-400); RED BLOOD CELL COUNT 4.91 10^6/uL (4.40-6.38); RED CELL DISTRIBUTION WIDTH 13.4 % (11.5-15.2)
[2017-06-20 15:29] LABS: ALANINE AMINOTRANSFERASE 32 IU/L (21-72); ALBUMIN 4.6 g/dL (3.5-5.0); ALKALINE PHOSPHATASE 119 IU/L (38-126); ANION GAP 19 mEq/L (8-16); ASPARTATE AMINOTRANSFERASE 32 IU/L (17-59); BILIRUBIN,TOTAL 0.9 mg/dL (0.1-1.4); BILIRUBIN-CONJUGATED 0.1 mg/dL (0.0-0.5); BILIRUBIN-UNCONJUGATED 0.8 mg/dL (0.0-1.1); CARBON DIOXIDE 22 mEq/l (22-31); CHLORIDE 99 mEq/L (97-110); CREATININE 0.9 mg/dL (0.7-1.3); GLOMERULAR FILTRATION RATE > 60; GLUCOSE 145 mg/dL (70-100); POTASSIUM 3.7 mEq/L (3.5-5.2); SODIUM 140 mEq/L (134-144); TOTAL PROTEIN 7.1 g/dL (6.3-8.2)
[2017-06-20 16:56] LABS: ETHANOL SERUM < 10 mg/dL (0-10)
[2017-06-20 18:00] VITALS: RESP 16
[2017-06-20 18:22] LABS: COLOR YELLOW; LEUKOCYTE ESTERASE,URINE NEGATIVE (NEGATIVE); NITRITE,URINE NEGATIVE (NEGATIVE)
[2017-06-20 18:28] LABS: MUCUS TRACE /lpf (NONE-1+)
[2017-06-20] MEDS ORDERED: ONDANSETRON 4MG PREPACK#2 BTL TAKEHOME ONE ×2 (19:09→19:23)
[2017-06-20 19:25] VITALS: BP 170/85; PULSE 80; TEMP 99; O2SAT 95
== END 2017-06-20 19:24 | disposition home or self-care (01) ==
DX: R11.2 Nausea with vomiting, unspecified (principal); I10 Essential (primary) hypertension; E86.9 Volume depletion, unspecified; Z79.82 Long term (current) use of aspirin; Z87.891 Personal history of nicotine dependence
CPT/HCPCS: 96361; 96374; 96375; 99284; J1170; J2405; G0480

== ENCOUNTER 2017-06-22 14:05 | Inpatient (IN) | payer OTHER, MEDICARE ==
[2017-06-22] MEDS ORDERED: NS 1,000 ML IV ONE (14:38)
[2017-06-22] MEDS ORDERED: ONDANSETRON 4 MG/2 ML VIAL IVP ONE (14:38)
[2017-06-22] MEDS ORDERED: LIDOCAINE 1% 100 MG in NS 100 ML IV ONE (14:38)
--- NOTE | 2017-06-22 14:40 | EDPHY ---
H & P Stated Complaint: Here yesteday for same c/o;now thinks it's his ribs and wants pain med RX Time Seen by Provider: 06/22/17 14:29 HPI/ROS: CHIEF COMPLAINT: Right flank pain HISTORY OF PRESENT ILLNESS: The patient is a 71-year-old man with a history of alcoholism, bipolar, narcotic abuse and factor 5 Leiden deficiency with history of PE and multiple traumas. He comes to the emergency department complaining of right flank pain. He was seen here yesterday for the vomiting. He felt better with medication and was discharged home. He states that he was not able to sleep but has had increasing right flank pain. He thought that maybe it was a rib injury. He denies any recent trauma. He decided to come back in and was asking for pain medications. He denies shortness of breath. He denies chest pain. He states that he has not drained about a year. He has had his appendix moved but still has his gallbladder. He has never had a kidney stone. He has not vomited since yesterday. He did have a normal bowel movement this morning. REVIEW OF SYSTEMS: Constitutional: denies: chills, fever, recent illness, recent injury EENTM: denies: blurred vision, double vision, nose congestion Respiratory: denies: cough, shortness of breath Cardiac: denies: chest pain, irregular heart rate, lightheadedness, palpitations Gastrointestinal/Abdominal: See HPI Genitourinary: denies: dysuria, frequency, hematuria, pain Musculoskeletal: denies: joint pain, muscle pain Skin: denies: lesions, rash, jaundice, bruising Neurological: denies: headache, numbness, paresthesia, tingling, dizziness, weakness Hematologic/Lymphatic: denies: blood clots, easy bleeding, easy bruising Immunologic/allergic: denies: HIV/AIDS, transplant EXAM: GENERAL: Well-appearing, well-nourished and in no acute distress. HEAD: Atraumatic, normocephalic. EYES: Pupils equal round and reactive to light, extraocular movements intact, sclera anicteric, conjunctiva are normal. ENT: TMs normal, nares patent, oropharynx clear without exudates. Moist mucous membranes. NECK: Normal range of motion, supple without lymphadenopathy or JVD. LUNGS: Breath sounds clear to auscultation bilaterally and equal. No wheezes rales or rhonchi. HEART: Regular rate and rhythm without murmurs, rubs or gallops. ABDOMEN: Enlarged tender liver, no rebound or guarding. BACK: No CVA tenderness, no spinal tenderness, step-offs or deformities EXTREMITIES: Normal range of motion, no pitting or edema. No clubbing or cyanosis. NEUROLOGICAL: Cranial nerves II through XII grossly intact. Normal speech, normal gait. 5/5 strength, normal movement in all extremities, normal sensation PSYCH: Normal mood, normal affect. SKIN: Warm, dry, normal turgor, no visible rashes or lesions. Source: Patient Exam Limitations: No limitations - Personal History Current Tetanus Diphtheria and Acellular Pertussis (TDAP): Yes Tetanus Vaccine Date: 2010 - Medical/Surgical History Hx Asthma: No Hx Chronic Respiratory Disease: No Hx Diabetes: No Hx Cardiac Disease: No Hx Renal Disease: No Hx Cirrhosis: No Hx Alcoholism: Yes Hx HIV/AIDS: No Hx Splenectomy or Spleen Trauma: No Other PMH: PMH: anxiety, bipolar, hypothyroid, HTN, chronic right shoulder pain (torn rotator cuff), nacrotic and etoh abuse, C1 fracture in july 2015, falls. PSH: rotator cuff surgeryx2, C1 fx and fusion (in [facility]) - Family History Significant Family History: No pertinent family hx - Social History Smoking Status: Former smoker Alcohol Use: Sober Drug Use: Marijuana Constitutional: Initial Vital Signs Temperature (C) 37 C 06/22/17 14:10 Heart Rate 78 06/22/17 14:10 Respiratory Rate 16 06/22/17 14:10 Blood Pressure 128/86 H 06/22/17 14:10 O2 Sat (%) 95 06/22/17 14:10 O2 Delivery Mode Room Air Allergies/Adverse Reactions: Penicillins Allergy (Verified 06/22/17 14:11) Unknown Sulfa (Sulfonamide Antibiotics) Allergy (Verified 06/22/17 14:11) Rash Home Medications: Medication Instructions Recorded Aspirin EC [Aspirin EC 81 mg (*)] 81 mg PO HS 06/22/17 Atenolol [Tenormin 25 mg (*)] 25 mg PO BID 06/22/17 Atorvastatin Calcium [Lipitor 20 20 mg PO DAILY 06/22/17 mg (*)] Divalproex ER [Depakote ER 500 MG 1,000 mg PO HS 06/22/17 (*)] Divalproex ER [Depakote ER 500 MG 500 mg PO DAILY 06/22/17 (*)] Escitalopram Oxalate [Lexapro] 5 mg PO DAILY 06/22/17 Gabapentin [Neurontin 400 MG (*)] 400 mg PO BID 06/22/17 Levothyroxine [Synthroid 125 mcg 125 mcg PO DAILY06 06/22/17 (*)] Losartan Potassium 100 mg PO DAILY 06/22/17 Melatonin [Melatonin 3 MG (*)] 3 mg PO HS 06/22/17 Modafinil [Provigil] 200 mg PO DAILY 06/22/17 QUEtiapine FUMARATE [Seroquel 50 150 mg PO DAILY 06/22/17 mg (*)] oxyCODONE IR [Oxycodone Ir (*)] 5 mg PO Q4 PRN 06/22/17 Medical Decision Making - Diagnostics Imaging Results: Imaging Impressions Abdomen Ultrasound 06/22/17 14:39 Impression: 1. Distended tender gallbladder with a thickened wall. Query a calculus cholecystitis. This patient might benefit from a nuclear medicine HIDA scan to evaluate for cystic duct obstruction. 2. Prominent pancreatic duct, unchanged since June 2013. Results called and discussed with MATIAS HODGSON, at 06/22/2017 15:49 Imaging: Discussed imaging studies w/ stitch burnisher Radiologist ED Course/Re-evaluation: 4:20 p.m. I discussed the case with Dr. Yony Mccullough who recommends HIDA scan antibiotics and admission to the medical service. He will consult today and possibly remove his gallbladder. Discussed the case with Gissell Hanson who will admit the medical service. Differential Diagnosis: Partial list of the Differential diagnosis considered include but were not limited to; biliary disease, cirrhosis and although unlikely based on the history and physical exam, I also considered obstruction, ischemia, trauma. - Data Points Laboratory Results: Laboratory Results 06/22/17 14:40 06/22/17 14:40 06/22/17 06/22/17 14:40 14:40 WBC 18.64 10^3/uL H 10^3/uL (3.80-9.50) RBC 4.30 10^6/uL L 10^6/uL (4.40-6.38) Hgb 13.8 g/dL g/dL (13.7-17.5) Hct 39.6 % L % (40.0-51.0) MCV 92.1 fL fL (81.5-99.8) MCH 32.1 pg pg (27.9-34.1) MCHC 34.8 g/dL g/dL (32.4-36.7) RDW 13.7 % % (11.5-15.2) Plt Count 134 10^3/uL L 10^3/uL (150-400) MPV 11.3 fL fL (8.7-11.7) Neut % (Auto) 72.6 % % (39.3-74.2) Lymph % (Auto) 10.9 % L % (15.0-45.0) [place] % (Auto) 15.5 % H % (4.5-13.0) Eos % (Auto) 0.1 % L % (0.6-7.6) Baso % (Auto) 0.3 % % (0.3-1.7) Nucleat RBC Rel Count 0.0 % % (0.0-0.2) Absolute Neuts (auto) 13.55 10^3/uL H 10^3/uL (1.70-6.50) Absolute Lymphs (auto) 2.03 10^3/uL 10^3/uL (1.00-3.00) Absolute Monos (auto) 2.88 10^3/uL H 10^3/uL (0.30-0.80) Absolute Eos (auto) 0.01 10^3/uL L 10^3/uL (0.03-0.40) Absolute Basos (auto) 0.05 10^3/uL 10^3/uL (0.02-0.10) Absolute Nucleated RBC 0.00 10^3/uL 10^3/uL (0-0.01) Immature Gran % 0.6 % % (0.0-1.1) Immature Gran # 0.12 10^3/uL H 10^3/uL (0.00-0.10) Sodium 140 mEq/L mEq/L (134-144) Potassium 3.7 mEq/L mEq/L (3.5-5.2) Chloride 103 mEq/L mEq/L (97-110) Carbon Dioxide 25 mEq/l mEq/l (22-31) Anion Gap 12 mEq/L mEq/L (8-16) BUN 31 mg/dL H mg/dL (7-23) Creatinine 1.0 mg/dL mg/dL (0.7-1.3) Estimated GFR > 60 Glucose 88 mg/dL mg/dL (70-100) Calcium 9.1 mg/dL mg/dL (8.5-10.4) Total Bilirubin 0.8 mg/dL mg/dL (0.1-1.4) Conjugated Bilirubin 0.1 mg/dL mg/dL (0.0-0.5) Unconjugated Bilirubin 0.7 mg/dL mg/dL (0.0-1.1) AST 21 IU/L IU/L (17-59) ALT 27 IU/L IU/L (21-72) Alkaline Phosphatase 79 IU/L IU/L (38-126) Total Protein 5.5 g/dL L D g/dL (6.3-8.2) Albumin 3.3 g/dL L g/dL (3.5-5.0) Lipase 24 IU/L IU/L (23-300) Medications Given: Discontinued Medications Ertapenem (Invanz) 1 gm IVP EDNOW ONE PRN Reason: Protocol Stop: 06/22/17 16:20 Last Admin: 06/22/17 16:50 Dose: 1 gm Sodium Chloride (Ns) 1,000 mls @ 0 mls/hr IV EDNOW ONE; Wide Open PRN Reason: Protocol Stop: 06/22/17 14:39 Last Admin: 06/22/17 14:54 Dose: 1,000 mls Lidocaine HCl 100 mg/ Sodium (Chloride) 110 mls @ 600 mls/hr IV EDNOW ONE Stop: 06/22/17 14:48 Last Admin: 06/22/17 15:01 Dose: 110 mls Ondansetron HCl (Zofran) 4 mg IVP EDNOW ONE Stop: 06/22/17 14:39 Last Admin: 06/22/17 14:55 Dose: 4 mg Departure - Departure Disposition: [facility] Acute Clinical Impression: Acalculous cholecystitis Condition: Good Referrals: Theresa Palomares MD [Primary Care Provider] - As per Instructions
[2017-06-22 14:50] LABS: % IMMATURE GRANULYOCYTES 0.6 % (0.0-1.1); ABSOLUTE IMMATURE GRANULOCYTES 0.12 10^3/uL (0.00-0.10); ADD DIFF? NO; ADD MORPH? NO; ADD SCAN? NO; ATYPICAL LYMPHOCYTE FLAG 0 (0-99); FRAGMENT RBC FLAG 0 (0-99); HEMATOCRIT 39.6 % (40.0-51.0); HEMOGLOBIN 13.8 g/dL (13.7-17.5); LEFT SHIFT FLG 10 (0-99); LIPEMIA HEMOLYSIS FLAG 90 (0-99); MEAN CELL HEMOGLOBIN 32.1 pg (27.9-34.1); MEAN CELL HEMOGLOBIN CONCENTR. 34.8 g/dL (32.4-36.7); MEAN CELL VOLUME 92.1 fL (81.5-99.8); MEAN PLATELET VOLUME 11.3 fL (8.7-11.7); PLATELET CLUMPS FLAG 20 (0-99); PLATELET COUNT 134 10^3/uL (150-400); RED CELL DISTRIBUTION WIDTH 13.7 % (11.5-15.2)
[2017-06-22 15:09] LABS: ALANINE AMINOTRANSFERASE 27 IU/L (21-72); ALBUMIN 3.3 g/dL (3.5-5.0); ALKALINE PHOSPHATASE 79 IU/L (38-126); ANION GAP 12 mEq/L (8-16); ASPARTATE AMINOTRANSFERASE 21 IU/L (17-59); BILIRUBIN,TOTAL 0.8 mg/dL (0.1-1.4); BILIRUBIN-CONJUGATED 0.1 mg/dL (0.0-0.5); BILIRUBIN-UNCONJUGATED 0.7 mg/dL (0.0-1.1); CALCIUM 9.1 mg/dL (8.5-10.4); CARBON DIOXIDE 25 mEq/l (22-31); CHLORIDE 103 mEq/L (97-110); GLOMERULAR FILTRATION RATE > 60; GLUCOSE 88 mg/dL (70-100); POTASSIUM 3.7 mEq/L (3.5-5.2); SODIUM 140 mEq/L (134-144); TOTAL PROTEIN 5.5 g/dL (6.3-8.2)
[2017-06-22] MEDS ORDERED: ERTAPENEM 1 GM VIAL IVP ONE (16:19)
[2017-06-22] MEDS ORDERED: KETOROLAC 30 MG/1 ML SDV IVP ONE (17:15)
[2017-06-22] MEDS ORDERED: KETOROLAC 30 MG/1 ML SDV IVP PRN (17:18)
[2017-06-22] MEDS ORDERED: ONDANSETRON 4 MG/2 ML VIAL IVP PRN (17:19)
[2017-06-22] MEDS ORDERED: ONDANSETRON DISINTEGRATING 4 MG TAB PO PRN (17:19)
[2017-06-22] MEDS ORDERED: NS 1,000 ML IV SCH (17:30)
--- NOTE | 2017-06-22 18:07 | GHP ---
[f rep st] HISTORY AND PHYSICAL DATE OF ADMISSION: 06/22/2017 HISTORY OF PRESENT ILLNESS: The patient is a 71-year-old gentleman with a history of alcoholism and pneumonia as well as hypertension, who has been sober for about a year, who presents with abdominal pain. It sounds like it began on the right side after eating a sandwich at [employer]. He had some nausea, no vomiting. It does not radiate anywhere. He was seen in the emergency room yesterday for vomiting, was noted to have a leukocytosis. He was discharged home yesterday. Increasing right pain. There has been no hematuria. He thought it was a rib injury but there has been no fall. He came back in today, was asking for pain medications. He received a right upper quadrant ultrasound which showed a distended gallbladder. He still has his gallbladder. He denies a previous history of biliary colic-type symptoms. He has not had diarrhea. He has had some vomiting. No hematemesis. REVIEW OF SYSTEMS: Complete 10-point review of systems conducted and negative except as noted in the HPI. PAST MEDICAL HISTORY: 1. Alcoholism, in remission. 2. Bipolar. 3. Factor V Leiden. 4. History of C1 fracture. 5. History of PE. 6. Hypothyroidism. SOCIAL HISTORY: No alcohol in a year. Lives locally. No tobacco. . FAMILY HISTORY: Both parents are . ALLERGIES: Penicillin and sulfa. MEDICATIONS: Aspirin, oxycodone, atenolol, atorvastatin, escitalopram, gabapentin, levothyroxine, losartan, melatonin, modafinil, and quetiapine. PHYSICAL EXAMINATION: VITAL SIGNS: Temperature 37, blood pressure 128/86, pulse 70, breathing 16 times a minute, 95% on room air. GENERAL: No acute distress. Uncomfortable. HEENT: Sclerae anicteric. Oropharynx clear. Mucous membranes moist. NECK: Supple without lymphadenopathy or JVD. LUNGS: Clear to auscultation bilaterally. HEART: S1, S2. Not tachycardic. ABDOMEN: Soft. There is a Jones sign. There is no rebound or guarding. Bowel sounds are present. He does not have hepatomegaly. LOWER EXTREMITIES: Without edema. Calves nontender. SKIN: Without rash. NEUROLOGIC: Nonfocal. LABORATORY DATA: White count 18.6, slightly up from 18 yesterday. Hematocrit 39. Platelets are 134,000. Venous lactate is not checked. Sodium 140, potassium 3.7, chloride 102, bicarb 25, BUN 31, creatinine 1.0, baseline is lower than this. LFTs normal other than albumin of 3.3. Lipase 24. UA is pending. Right upper quadrant ultrasound shows a thickened gallbladder wall with pericholecystic fluid concerning for acalculous cholecystitis. I have discussed the case with Dr. Markell Beverly as well as Dr. Santo Mccullough. IMPRESSION: 1. Right upper quadrant pain concerning for acalculous cholecystitis. Urinalysis is pending. If there is hematuria, may warrant CT to evaluate for kidney stone, particularly if he has a negative HIDA scan. 2. Query acalculous cholecystitis. He does not fit the critically ill bill of the typical patient with acalculous cholecystitis, but the exam and ultrasound findings are certainly suggestive of this. HIDA scan pending. Surgery will see. 3. Pain. We will use Toradol until he gets his HIDA scan. He can have narcotics after that. HIDA scans are not possible after getting narcotics. 4. Alcoholism. Appears to be in remission. 5. Prophylaxis. Pharmacologic prophylaxis indicated. 6. Bipolar. Continue medicines. 7. Hypertension. Continue his medicines. 8. Disposition. Observation status. /[id number]/MODL MTDD
[2017-06-22] MEDS ORDERED: ATENOLOL 25 MG TAB PO SCH (21:00)
[2017-06-22] MEDS ORDERED: GABAPENTIN 400 MG CAP PO SCH (21:00)
[2017-06-22] MEDS ORDERED: MELATONIN 3 MG TAB PO SCH (21:00)
[2017-06-22] MEDS ORDERED: DIVALPROEX ER 500 MG TAB PO SCH (21:00)
[2017-06-22] MEDS ORDERED: ERTAPENEM 1 GM VIAL IVP SCH (23:00)
[2017-06-22] MEDS: DIVALPROEX ER 500 MG TAB PO SCH (23:00)
[2017-06-22] MEDS: GABAPENTIN 400 MG CAP PO SCH (23:01)
[2017-06-22] MEDS: HYDROmorphONE/DILAUDID 1 MG/ML INJ IVP PRN (23:01)
[2017-06-22] MEDS: MELATONIN 3 MG TAB PO SCH (23:01)
[2017-06-22] MEDS: ATENOLOL 25 MG TAB PO SCH (23:01)
[2017-06-23] MEDS: KETOROLAC 30 MG/1 ML SDV IVP PRN ×2 (00:45→09:54)
[2017-06-23] MEDS: HYDROmorphONE/DILAUDID 1 MG/ML INJ IVP PRN ×2 (01:39→03:48)
--- NOTE | 2017-06-23 04:29 | GCON ---
[f rep st] CONSULTATION DATE OF CONSULTATION: 06/22/2017 HISTORY OF PRESENT ILLNESS: Patient is a 71-year-old male, who presents with right upper quadrant pa in for 2 days' duration. He was seen in the ER yesterday with an elevated white count, but negative workup and was sent home. He returns at this time with more severe right upper quadrant pain, guardi ng, and fullness with a white count of 18,000. LFTs are normal. Gallbladder ultrasound reveals a th ickened gallbladder wall, but no definite stones. HIDA scan is pending. Admitted at this time for o bservation, but likely has acalculous cholecystitis. He has been afebrile and no history of icterus or jaundice. PAST MEDICAL HISTORY: Includes a factor V Leiden abnormality. He has a history of a C1 fracture. H istory of pulmonary embolus, hypothyroidism. He is bipolar and has a past history of alcohol abuse. REVIEW OF SYSTEMS: Reveals no other major problems on a full 10-point review of systems and specific ally does not smoke. ALLERGIES: Penicillin and sulfa. MEDICATIONS: Present medications are aspirin, oxycodone, atenolol, Lipitor, gabapentin, thyroxine, e scitalopram, losartan, modafinil, quetiapine, and melatonin. PHYSICAL EXAMINATION: GENERAL: Reveals an alert, cooperative, uncomfortable, 71-year-old male, in n o acute distress. He is afebrile. HEAD/NECK: Reveals no icterus. No oral lesions. No adenopathy. NECK: Supple without adenopathy or bruits. CHEST: Clear to auscultation and symmetric. CARDIAC: Regular rhythm without murmurs. ABDOMEN: Soft. He has major tenderness in the right upper quadra nt and some in the right lower quadrant. There is no rebound, but there is some guarding in the righ t upper quadrant. Bowel sounds are present. EXTREMITIES: Reveal full range of motion, full pulses. SKIN: Intact without lesions or rashes. NEUROLOGIC: Symmetric and physiologic. IMPRESSION: 1. Right upper quadrant pain consistent with acalculous cholecystitis. 2. Bipolar disease. 3. Hypertension. PLAN: Admit for observation, IV fluids, n.p.o., and HIDA scan to further evaluate his gallbladder. I think it is likely he will need a laparoscopic cholecystectomy in the next 24-48 hours. Risks and options have been fully discussed with the patient, and he wishes to proceed. /[id number]/MODL
[2017-06-23] MEDS ORDERED: BUPIVACAINE 0.5% 30 ML SDV ONE (05:47)
[2017-06-23] MEDS ORDERED: HEPARIN 1000 UNIT/1 ML MDV ONE (05:47)
[2017-06-23] MEDS ORDERED: ceFAZolin 1 GM/5 ML SYR ONE (05:48)
[2017-06-23] MEDS ORDERED: LR 1,000 ML IV ONE (05:51)
[2017-06-23] MEDS ORDERED: MIDAZOLAM 2 MG/2 ML VIAL IVP ONE (05:58)
[2017-06-23] MEDS ORDERED: fentaNYL 100 MCG/2 ML INJ IVP PRN (06:00)
[2017-06-23] MEDS ORDERED: NALOXONE HCL 0.4 MG/ML INJ IVP PRN (06:00)
[2017-06-23] MEDS ORDERED: ALBUTEROL 3 ML DEYVIAL IH PRN (06:00)
[2017-06-23] MEDS ORDERED: LEVOTHYROXINE 125 MCG TAB PO SCH (06:00)
[2017-06-23] MEDS ORDERED: HYDROmorphONE/DILAUDID 1 MG/ML INJ IVP PRN (06:00)
--- NOTE | 2017-06-23 06:00 | PDANEPAE ---
ANE History of Present Illness here for lap felipe MYNOR Past Medical History - Cardiovascular History Hx Hypertension: Yes Hx Arrhythmias: No Hx Chest Pain: No Hx Coronary Artery / Peripheral Vascular Disease: No Hx CHF / Valvular Disease: No Hx Palpitations: No Cardiovascular History Comment: father had 2 MIs in 50s - Pulmonary History Hx COPD: No Hx Asthma/Reactive Airway Disease: No Hx Recent Upper Respiratory Infection: No Hx Oxygen in Use at Home: No Hx Sleep Apnea: No Sleep Apnea Screening Result - Last Documented: Positive Pulmonary History Comment: pneumonia 06/15 on ABX - Neurologic History Hx Cerebrovascular Accident: No Hx Seizures: No Hx Dementia: No Neurologic History Comment: shingles 2011, 2009. numbness tingling R hand, gone with Cspine fusion 05/15 - Endocrine History Hx Diabetes: No Endocrine History Comment: hypothyroid-med - Renal History Hx Renal Disorders: No - Liver History Hx Hepatic Disorders: No Hepatic History Comment: alcohol abuse in past - Neurological & Psychiatric Hx Hx Neurological and Psychiatric Disorders: Yes Neurological / Psychiatric History Comment: depression, anxiety. bipolar - Cancer History Hx Cancer: No - Congenital Disorder History Hx Congenital Disorders: No - GI History Hx Gastrointestinal Disorders: Yes Gastrointestinal History Comment: colonoscopt 2012-benign polyp - Other Health History Other Health History: tonsils out as child. 2 missing teeth. low platelets 2 mo. bennie,decreased Depakote & normal now - Chronic Pain History Chronic Pain: Yes (neck, R shoulder) - Surgical History Prior Surgeries: Cspine fusion 05/15. R shoulder 08/15. L arm 1984. L arm gerard 1998. orbital fx 1995 ANE Review of Systems Review of systems is: negative Review of Systems: - Exercise capacity Exercise capacity: >=4 METS ANE Patient History - Allergies Allergies/Adverse Reactions: Penicillins Allergy (Verified 06/22/17 14:11) Unknown Sulfa (Sulfonamide Antibiotics) Allergy (Verified 06/22/17 14:11) Rash - Home Medications Home medications: home medication list seen and reviewed Home Medications: Aspirin EC [Aspirin EC 81 mg (*)] 81 mg PO HS 06/22/17 [Last Taken 06/21/17] Atenolol [Tenormin 25 mg (*)] 25 mg PO BID 06/22/17 [Last Taken 06/21/17] Atorvastatin Calcium [Lipitor 20 mg (*)] 20 mg PO DAILY 06/22/17 [Last Taken ] Divalproex ER [Depakote ER 500 MG (*)] 1,000 mg PO HS 06/22/17 [Last Taken 06/21] Divalproex ER [Depakote ER 500 MG (*)] 500 mg PO DAILY 06/22/17 [Last Taken ] Escitalopram Oxalate [Lexapro] 5 mg PO DAILY 06/22/17 [Last Taken 06/21/17] Gabapentin [Neurontin 400 MG (*)] 400 mg PO BID 06/22/17 [Last Taken 06/21/17] Levothyroxine [Synthroid 125 mcg (*)] 125 mcg PO DAILY06 06/22/17 [Last Taken ] Losartan Potassium 100 mg PO DAILY 06/22/17 [Last Taken 06/21/17] Melatonin [Melatonin 3 MG (*)] 3 mg PO HS 06/22/17 [Last Taken 06/21/17] Modafinil [Provigil] 200 mg PO DAILY 06/22/17 [Last Taken 06/21/17] QUEtiapine FUMARATE [Seroquel 50 mg (*)] 150 mg PO DAILY 06/22/17 [Last Taken ] oxyCODONE IR [Oxycodone Ir (*)] 5 mg PO Q4 PRN 06/22/17 [Last Taken 06/19/17] - NPO status NPO Status: no food or drink >8 hours NPO Since - Liquids (Date): 06/22/17 NPO Since - Liquids (Time): 17:20 NPO Since - Solids (Date): 06/22/17 NPO Since - Solids (Time): 17:20 - Smoking Hx Smoking Status: Former smoker - Alcohol Use Alcohol Use: Sober - Family Anes Hx Family Hx Anesthesia Complications: no ANE Labs/Vital Signs - Labs Result Diagrams: 06/22/17 14:40 06/22/17 14:40 - Vital Signs Blood Pressure: 113/58 Heart Rate: 55 Respiratory Rate: 16 O2 Sat (%): 92 Height: 170.18 cm Weight: 70.76 kg ANE Physical Exam - Airway Neck exam: FROM Mallampati Score: Class 1 Mouth exam: normal dental/mouth exam - Pulmonary Pulmonary: no respiratory distress - Cardiovascular Cardiovascular: regular rate and rhythym - ASA Status ASA Status: II ANE Anesthesia Plan Anesthesia Plan: general endotracheal anesthesia
[2017-06-23] MEDS ORDERED: MIDAZOLAM 2 MG/2 ML VIAL ONE (06:01)
[2017-06-23] MEDS ORDERED: fentaNYL 100 MCG/2 ML INJ ONE ×2 (06:02→06:58)
[2017-06-23] MEDS ORDERED: PROPOFOL/EMULSION 500 MG/50 ML BOTTLE IV ONE (06:06)
[2017-06-23] MEDS ORDERED: SUGAMMADEX SODIUM 200 MG/2 ML VIAL IVP ONE (07:12)
--- NOTE | 2017-06-23 07:37 | POSTOPPROG ---
Post Op Note Date of Operation: 06/23/17 Surgeon: Yony Mccullough Guard Immigration: none Anesthesia: GET(General Endotracheal) Pre-op Diagnosis: cholecystitis Post-op Diagnosis: acute cholecystitis, hydrops gall bladder, adhesions Procedure: lap felipe Findings: gross purulence, adhesions from old appy surgery Inf/Abcess present in the surg proc area at time of surgery?: Yes Depth: Organ Space EBL: 50-100 Complications: none Specimen(s): gallbladder to pathology
[2017-06-23] MEDS ORDERED: ATORVASTATIN CALCIUM 20 MG TAB PO SCH (09:00)
[2017-06-23] MEDS ORDERED: DIVALPROEX ER 500 MG TAB PO SCH (09:00)
[2017-06-23] MEDS ORDERED: QUEtiapine FUMARATE 50 MG TAB PO SCH (09:00)
[2017-06-23] MEDS ORDERED: NON-FORMULARY NEW DRUG (Modafinil [Provigil] 200 MG) PO SCH (09:00)
[2017-06-23] MEDS ORDERED: NON-FORMULARY NEW DRUG (Escitalopram Oxalate [Lexapro] 5 MG) PO SCH (09:00)
[2017-06-23] MEDS ORDERED: NON-FORMULARY NEW DRUG (Losartan Potassium [Losartan Potassium] 100 MG) PO SCH (09:00)
[2017-06-23] MEDS ORDERED: ENOXAPARIN 40 MG/0.4 ML SYR SC SCH (09:00)
[2017-06-23] MEDS: DIVALPROEX ER 500 MG TAB PO SCH ×2 (09:45→21:57)
[2017-06-23] MEDS: QUEtiapine FUMARATE 50 MG TAB PO SCH (09:46)
[2017-06-23] MEDS: GABAPENTIN 400 MG CAP PO SCH ×2 (09:46→21:58)
[2017-06-23] MEDS: ESCITALOPRAM OXALATE 10 MG TAB PO SCH (09:47)
[2017-06-23] MEDS: ENOXAPARIN 40 MG/0.4 ML SYR SC SCH (09:48)
[2017-06-23] MEDS: ATORVASTATIN CALCIUM 20 MG TAB PO SCH (09:48)
[2017-06-23] MEDS: ERTAPENEM 1 GM VIAL IVP SCH (09:49)
[2017-06-23] MEDS: ATENOLOL 25 MG TAB PO SCH ×2 (09:49→22:00)
[2017-06-23] MEDS: LOSARTAN POTASSIUM 50 MG TAB PO SCH (10:12)
[2017-06-23] MEDS: LEVOTHYROXINE 125 MCG TAB PO SCH (10:12)
[2017-06-23] MEDS: Modafinil [Provigil] 200 MG PO SCH (10:13)
[2017-06-23 10:53] LABS: HEMATOCRIT 31.2 % (40.0-51.0); HEMOGLOBIN 10.6 g/dL (13.7-17.5); MEAN CELL HEMOGLOBIN 31.7 pg (27.9-34.1); MEAN CELL VOLUME 93.4 fL (81.5-99.8); RED BLOOD CELL COUNT 3.34 10^6/uL (4.40-6.38); RED CELL DISTRIBUTION WIDTH 13.6 % (11.5-15.2)
[2017-06-23 11:22] LABS: ALANINE AMINOTRANSFERASE 56 IU/L (21-72); ALBUMIN 2.5 g/dL (3.5-5.0); ALKALINE PHOSPHATASE 77 IU/L (38-126); ANION GAP 10 mEq/L (8-16); ASPARTATE AMINOTRANSFERASE 97 IU/L (17-59); BILIRUBIN,TOTAL 0.5 mg/dL (0.1-1.4); CALCIUM 8.2 mg/dL (8.5-10.4); CARBON DIOXIDE 24 mEq/l (22-31); CHLORIDE 107 mEq/L (97-110); CREATININE 0.8 mg/dL (0.7-1.3); GLOMERULAR FILTRATION RATE > 60; GLUCOSE 93 mg/dL (70-100); POTASSIUM 3.8 mEq/L (3.5-5.2); SODIUM 141 mEq/L (134-144); TOTAL PROTEIN 4.7 g/dL (6.3-8.2)
--- NOTE | 2017-06-23 11:25 | ASMTCMCOM ---
CM Note CM Note Notes: Patient admitted with abdominal pain - had lap choly with Dr Mccullough yesterday and is recovering well. OT eval ordered. Patient lives alone and is normally independent. I do not anticipate any discharge needs; however, Case Management available if things change. Date Signed: 06/23/2017 11:25 AM Electronically Signed By:Pallavi Joseph RN
[2017-06-23] MEDS: D5W 1/2 NS W/ 20 KCl/L 1,000 ML IV SCH ×2 (14:33→22:10)
[2017-06-23] MEDS: ACETAMINOPHEN 325 MG TAB PO PRN (16:12)
--- NOTE | 2017-06-23 16:41 | HOSPPROG ---
Hospitalist Progress Note Assessment/Plan: 71 yo M w acute cholecystitis choleystitis: s/p lap felipe advance diet abd pain: prn pain meds add IS h/o VTE: lmwh pain: prn toradol, oxycodone dispo: inpt Subjective: s/p cholecystectomy. case d/w dr zambrano Objective: Vital Signs Temp Pulse Resp BP Pulse Ox 36.4 C 60 12 141/63 H 92 06/23/17 15:14 06/23/17 15:14 06/23/17 15:14 06/23/17 15:14 06/23/17 15:14 Microbiology 06/23/17 07:18 Gram Stain - Final Gallbladder - Eswab Laboratory Results 06/23/17 10:33 06/23/17 10:33 06/22/17 06/23/17 06/24/17 05:59 05:59 05:59 Intake Total 3247 1070 Output Total 110 Balance 3247 960 - Physical Exam Constitutional: no apparent distress, appears nourished Eyes: PERRL, anicteric sclera Ears, Nose, Mouth, Throat: moist mucous membranes, hearing normal, ears appear normal Cardiovascular: regular rate and rhythym, no murmur, rub, or gallop Respiratory: no respiratory distress, no rales or rhonchi Gastrointestinal: normoactive bowel sounds, soft, non-tender abdomen Genitourinary: no bladder fullness, No alva in urethra Skin: warm, normal color Musculoskeletal: full muscle strength Neurologic: AAOx3 ICD10 Worksheet Patient Problems: Problems Problem Status Onset Acalculous cholecystitis Acute Abscess of lung with pneumonia Acute Alcoholic intoxication Acute C1 cervical fracture Acute Chronic Disease Mgmt/Transitional Care Acute Fall Acute Nausea & vomiting Acute Pneumonia Acute Pneumothorax Acute Ribs, multiple fractures Acute Scapula fracture Acute Syncope and collapse Acute
[2017-06-23] MEDS: OXYCODONE/APAP 5/325 TAB PO PRN (16:46)
--- NOTE | 2017-06-23 17:16 | PDMN ---
Medical Necessity Medical necessity: C/M review: acute cholecystitis, abdominal pain requiring surgery - laparoscopic cholecystectomy, ongoing postop IV fluids, IV Toredol, IV Invanz per 06/23/2017 Hospitalist progress note.
[2017-06-23] MEDS: KETOROLAC 15 MG/1 ML SDV IVP SCH (18:18)
[2017-06-23 18:34] LABS: COLOR AMBER; LEUKOCYTE ESTERASE,URINE NEGATIVE (NEGATIVE); NITRITE,URINE NEGATIVE (NEGATIVE)
[2017-06-23 18:37] LABS: MUCUS 1+ /lpf (NONE-1+)
[2017-06-23] MEDS: MELATONIN 3 MG TAB PO SCH (21:57)
--- NOTE | 2017-06-23 22:08 | GOP ---
[f rep st] OPERATIVE REPORT DATE OF OPERATION: 06/23/2017 SURGEON: Yony Mccullough MD SALESFORCE TRAINER: None. ANESTHESIA: Dr. Hubbard. PREOPERATIVE DIAGNOSIS: Acute acalculous cholecystitis. POSTOPERATIVE DIAGNOSIS: Acute acalculous cholecystitis, plus adhesions. PROCEDURE PERFORMED: Laparoscopic adhesiolysis and a laparoscopic cholecystectomy. FINDINGS: The patient was found to have a complete forest of abdominal adhesions from his previous p erforated appendix. The gallbladder was markedly inflamed, hydrops and covered with adhesions and pu rulent. DESCRIPTION OF PROCEDURE: The patient was taken to the operating room where he received satisfactory general endotracheal anesthesia by Dr. Hubbard. He was placed in supine position, prepped and draped in usual sterile fashion. A short incision was made in the left upper quadrant. A Veress needle wa s inserted. Pneumoperitoneum was established. Trocar was introduced. Laparoscope was introduced, g ood visualization was obtained. However, the abdomen was completely obscured with adhesions. Clear area was found and placed a 2nd trocar under direct vision, and then some of the adhesions in the upp er abdomen were taken down with the Harmonic Scalpel until the area of the right lobe of the liver co uld be visualized. Enough adhesions were taken down off his previous appendectomy incision to allow midline trocar being placed by the umbilicus. This was done, giving us better visualization of the g allbladder. Two other trocars were placed under direct vision. Adhesions were taken down with the H armonic Scalpel and the gallbladder was eventually able to be visualized and elevated up. It was michelle te distended and inflamed. Adhesions were dissected free all the way down to the cystic triangle. T he cystic duct and cystic artery were carefully isolated with care to avoid injury to the common duct , which was clearly visible. The cystic artery was divided with the Harmonic Scalpel. The cystic du ct was isolated. It was then multiply hemoclipped and divided. The peritoneum of the gallbladder wa s incised. It should be noted the gallbladder was dissected down from the fundus down before being a ble to definitely divide the cystic artery and cystic duct. A good clear view had been established. The gallbladder was then amputated and extracted through the upper midline port site. Hemostasis wa s carefully obtained. The wound was copiously irrigated. Hemostasis was assured. Trocars removed u nder direct vision. Trocar sites were closed with 0 Vicryl for the fascia. The skin was closed with skin lauren. All wounds were infiltrated with 0.5% Marcaine. There were no complications. He was taken to the recovery room in good condition. /[id number]/MODL
[2017-06-24] MEDS: OXYCODONE/APAP 5/325 TAB PO PRN ×2 (00:57→08:32)
[2017-06-24] MEDS: KETOROLAC 15 MG/1 ML SDV IVP SCH ×5 (00:57→23:44)
[2017-06-24] MEDS: HYDROmorphONE/DILAUDID 1 MG/ML INJ IVP PRN ×3 (02:15→06:18)
[2017-06-24 04:36] LABS: HEMATOCRIT 32.6 % (40.0-51.0); HEMOGLOBIN 11.1 g/dL (13.7-17.5); MEAN CELL HEMOGLOBIN 31.6 pg (27.9-34.1); MEAN CELL VOLUME 92.9 fL (81.5-99.8); RED BLOOD CELL COUNT 3.51 10^6/uL (4.40-6.38); RED CELL DISTRIBUTION WIDTH 13.5 % (11.5-15.2)
[2017-06-24 05:04] LABS: ALANINE AMINOTRANSFERASE 110 IU/L (21-72); ALBUMIN 2.6 g/dL (3.5-5.0); ALKALINE PHOSPHATASE 112 IU/L (38-126); ASPARTATE AMINOTRANSFERASE 169 IU/L (17-59); BILIRUBIN,TOTAL 0.7 mg/dL (0.1-1.4); CALCIUM 8.2 mg/dL (8.5-10.4); CARBON DIOXIDE 21 mEq/l (22-31); CHLORIDE 109 mEq/L (97-110); CREATININE 0.8 mg/dL (0.7-1.3); GLOMERULAR FILTRATION RATE > 60; GLUCOSE 134 mg/dL (70-100); SODIUM 141 mEq/L (134-144)
[2017-06-24] MEDS: LEVOTHYROXINE 125 MCG TAB PO SCH (05:18)
[2017-06-24 06:15] LABS: ANION GAP 11 mEq/L (8-16); POTASSIUM 3.7 mEq/L (3.5-5.2)
[2017-06-24] MEDS: D5W 1/2 NS W/ 20 KCl/L 1,000 ML IV SCH (06:26)
[2017-06-24] MEDS: ENOXAPARIN 40 MG/0.4 ML SYR SC SCH (08:35)
[2017-06-24] MEDS: ESCITALOPRAM OXALATE 10 MG TAB PO SCH (08:35)
[2017-06-24] MEDS: QUEtiapine FUMARATE 50 MG TAB PO SCH (08:35)
[2017-06-24] MEDS: GABAPENTIN 400 MG CAP PO SCH ×2 (08:36→21:05)
[2017-06-24] MEDS: DIVALPROEX ER 500 MG TAB PO SCH ×2 (08:36→21:05)
[2017-06-24] MEDS: LOSARTAN POTASSIUM 50 MG TAB PO SCH (08:37)
[2017-06-24] MEDS: ATORVASTATIN CALCIUM 20 MG TAB PO SCH (08:37)
[2017-06-24] MEDS: ATENOLOL 25 MG TAB PO SCH ×2 (08:37→21:05)
[2017-06-24] MEDS: ERTAPENEM 1 GM VIAL IVP SCH (08:44)
[2017-06-24] MEDS: Modafinil [Provigil] 200 MG PO SCH (08:47)
[2017-06-24] MEDS: MODAFINIL 100 MG TAB PO SCH (09:51)
--- NOTE | 2017-06-24 10:59 | ASMTCMCOM ---
CM Note CM Note Notes: OT recommending HC. Met with pt and friend Laney to discuss. They [facility] PT[facility]OT. Laney will sign pt up for Meals on Wheels. Laney will also hire someone to clean pt's home. She may take pt to her house for a few days at [place]. Let [facility] know to call Laney at [place] for location. C/M to follow. Date Signed: 06/24/2017 10:58 AM Electronically Signed By:Bibi Campo LCSW
--- NOTE | 2017-06-24 15:30 | HOSPPROG ---
Hospitalist Progress Note Assessment/Plan: 71 yo M w acute cholecystitis choleystitis: s/p lap felipe advance diet on ertapenem abd pain: prn pain meds add IS transition to po pain meds somnolent now h/o VTE: lmwh pain: prn toradol, oxycodone dispo: inpt PT/OT to see Subjective: case d/w dr zambrano. somnolent Objective: Vital Signs Temp Pulse Resp BP Pulse Ox 37.1 C 67 18 93/50 L 98 06/24/17 08:28 06/24/17 13:35 06/24/17 13:35 06/24/17 13:35 06/24/17 13:35 Laboratory Results 06/24/17 04:17 06/24/17 04:17 06/23/17 06/24/17 06/25/17 05:59 05:59 05:59 Intake Total 1602 Output Total 270 Balance 1332 - Physical Exam Constitutional: no apparent distress, appears nourished Eyes: PERRL, anicteric sclera Ears, Nose, Mouth, Throat: moist mucous membranes, hearing normal Cardiovascular: regular rate and rhythym, no murmur, rub, or gallop Respiratory: no respiratory distress, no rales or rhonchi Gastrointestinal: No price's sign, No guarding, No rebound, No distension Genitourinary: no bladder fullness, No alva in urethra Skin: warm, normal color Musculoskeletal: full muscle strength, no muscle tenderness Neurologic: AAOx3 ICD10 Worksheet Patient Problems: Problems Problem Status Onset Acalculous cholecystitis Acute Abscess of lung with pneumonia Acute Alcoholic intoxication Acute C1 cervical fracture Acute Chronic Disease Mgmt/Transitional Care Acute Fall Acute Nausea & vomiting Acute Pneumonia Acute Pneumothorax Acute Ribs, multiple fractures Acute Scapula fracture Acute Syncope and collapse Acute
--- NOTE | 2017-06-24 18:53 | SOAPPROG ---
SOAP Progress Note Assessment/Plan: Assessment: Status post hydrops of gallbladder/still complains of right flank pain/afebrile/ wound okay/LFTs minimally elevated and bilirubin normal/WBC 13 K/hematocrit 33 Chest clear/abdomen soft with some tenderness in the right upper quadrant but positive bowel sounds Tolerating liquids well Vital signs stable/afebrile Will need to go home on oral antibiotics for 5 days Plan: Adequate pain control/follow-up LFTs/advance diet 06/24/17 18:50 06/24/17 18:52 Objective: Vital Signs Temp Pulse Resp BP Pulse Ox 36.2 C 69 18 101/60 98 06/24/17 15:46 06/24/17 15:46 06/24/17 15:46 06/24/17 15:46 06/24/17 15:46 Laboratory Results 06/24/17 04:17 06/24/17 04:17 06/23/17 06/24/17 06/25/17 05:59 05:59 05:59 Intake Total 1602 800 Output Total 270 150 Balance 1332 650 ICD10 Worksheet Patient Problems: Problems Problem Status Onset Acalculous cholecystitis Acute Abscess of lung with pneumonia Acute Alcoholic intoxication Acute C1 cervical fracture Acute Chronic Disease Mgmt/Transitional Care Acute Fall Acute Nausea & vomiting Acute Pneumonia Acute Pneumothorax Acute Ribs, multiple fractures Acute Scapula fracture Acute Syncope and collapse Acute
[2017-06-24] MEDS: oxyCODONE IR 5 MG TAB PO PRN (21:04)
[2017-06-24] MEDS: MELATONIN 3 MG TAB PO SCH (21:05)
[2017-06-24] MEDS: HYDROmorphone HCL/NS/PF 0.4 MG/2 ML SYR IVP PRN (21:26)
[2017-06-24] MEDS: ACETAMINOPHEN 325 MG TAB PO PRN (23:55)
[2017-06-25] MEDS: KETOROLAC 15 MG/1 ML SDV IVP SCH ×2 (04:58→13:14)
[2017-06-25] MEDS: LEVOTHYROXINE 125 MCG TAB PO SCH (04:59)
[2017-06-25] MEDS: oxyCODONE IR 5 MG TAB PO PRN ×2 (06:15→10:46)
[2017-06-25] MEDS ORDERED: NS 1,000 ML IV SCH (08:00)
[2017-06-25 08:48] LABS: % IMMATURE GRANULYOCYTES 0.7 % (0.0-1.1); ABSOLUTE IMMATURE GRANULOCYTES 0.09 10^3/uL (0.00-0.10); ADD DIFF? NO; ADD MORPH? NO; ADD SCAN? NO; ATYPICAL LYMPHOCYTE FLAG 0 (0-99); FRAGMENT RBC FLAG 0 (0-99); HEMATOCRIT 31.5 % (40.0-51.0); HEMOGLOBIN 10.5 g/dL (13.7-17.5); LEFT SHIFT FLG 20 (0-99); LIPEMIA HEMOLYSIS FLAG 80 (0-99); MEAN CELL HEMOGLOBIN CONCENTR. 33.3 g/dL (32.4-36.7); MEAN PLATELET VOLUME 11.5 fL (8.7-11.7); PLATELET CLUMPS FLAG 10 (0-99); PLATELET COUNT 143 10^3/uL (150-400); RED BLOOD CELL COUNT 3.28 10^6/uL (4.40-6.38); RED CELL DISTRIBUTION WIDTH 13.8 % (11.5-15.2)
[2017-06-25] MEDS ORDERED: NS 500 ML IV ONE (09:03)
[2017-06-25 09:05] LABS: ALANINE AMINOTRANSFERASE 83 IU/L (21-72); ALBUMIN 2.4 g/dL (3.5-5.0); ALKALINE PHOSPHATASE 116 IU/L (38-126); ANION GAP 10 mEq/L (8-16); ASPARTATE AMINOTRANSFERASE 74 IU/L (17-59); CALCIUM 8.2 mg/dL (8.5-10.4); CARBON DIOXIDE 23 mEq/l (22-31); CHLORIDE 108 mEq/L (97-110); CREATININE 1.1 mg/dL (0.7-1.3); GLOMERULAR FILTRATION RATE > 60; GLUCOSE 86 mg/dL (70-100); POTASSIUM 3.8 mEq/L (3.5-5.2); SODIUM 141 mEq/L (134-144); TOTAL PROTEIN 4.7 g/dL (6.3-8.2)
--- NOTE | 2017-06-25 09:07 | HOSPPROG ---
Hospitalist Progress Note Assessment/Plan: New pt encounter 71 yo male admitted with acute cholecystitis, now s/p cholecystectomy. Overnight he has had minimal concentrated urine and has become borderline hypotensive. Looks Dry. Labs are pending Plan: -IVF now -await labs, monitor Cr -Hold NSAIDS -Hold Losartan -Keep inpatient I: -Acute cholecystitis -Hypotension -H/O VTE, on LMWH at proph dose -Hx of Factor V Leiden -Bipolar Subjective: Afebrile. Low BP. Low urine output. No CP or SOB. No N/V. Objective: Vital Signs Temp Pulse Resp BP Pulse Ox 36.9 C 75 18 99/51 L 92 06/25/17 07:21 06/25/17 07:21 06/25/17 07:21 06/25/17 07:21 06/25/17 07:21 Laboratory Results 06/25/17 08:34 06/24/17 06/25/17 06/26/17 05:59 05:59 05:59 Intake Total 1602 1000 Output Total 270 150 75 Balance 1332 850 -75 - Physical Exam Constitutional: no apparent distress Eyes: PERRL, EOMI Ears, Nose, Mouth, Throat: moist mucous membranes, hearing normal, dry mucous membranes Cardiovascular: regular rate and rhythym, No edema Respiratory: no respiratory distress, no rales or rhonchi, clear to auscultation Gastrointestinal: normoactive bowel sounds Skin: warm Neurologic: AAOx3 Psychiatric: interacting appropriately, not anxious, not encephalopathic ICD10 Worksheet Patient Problems: Problems Problem Status Onset Acalculous cholecystitis Acute Abscess of lung with pneumonia Acute Alcoholic intoxication Acute C1 cervical fracture Acute Chronic Disease [facility]/Transitional Care Acute Fall Acute Nausea & vomiting Acute Pneumonia Acute Pneumothorax Acute Ribs, multiple fractures Acute Scapula fracture Acute Syncope and collapse Acute
[2017-06-25] MEDS: ERTAPENEM 1 GM VIAL IVP SCH (09:56)
[2017-06-25] MEDS: ENOXAPARIN 40 MG/0.4 ML SYR SC SCH (09:57)
[2017-06-25] MEDS: ACETAMINOPHEN 325 MG TAB PO PRN (10:08)
[2017-06-25] MEDS: DIVALPROEX ER 500 MG TAB PO SCH ×2 (10:09→21:40)
[2017-06-25] MEDS: GABAPENTIN 400 MG CAP PO SCH ×2 (10:09→21:40)
--- NOTE | 2017-06-25 10:09 | SOAPPROG ---
SOAP Progress Note Assessment/Plan: Assessment: s/p lap felipe on 06/23. Not feeling well. WBC still up Will monitor. Imaging tomorrow if WBC still up and still symptomatic S: Feeling as bad as when he came in O: Lying in bed, appears somewhat still Incisions cdi Tender to palpation (some anticipatory) Plan: 06/25/17 10:01 Objective: Vital Signs Temp Pulse Resp BP Pulse Ox 36.9 C 75 18 99/51 L 92 06/25/17 07:21 06/25/17 07:21 06/25/17 07:21 06/25/17 07:21 06/25/17 07:21 Laboratory Results 06/25/17 08:34 06/25/17 08:34 06/24/17 06/25/17 06/26/17 05:59 05:59 05:59 Intake Total 1602 1000 Output Total 270 150 75 Balance 1332 850 -75 ICD10 Worksheet Patient Problems: Problems Problem Status Onset Acalculous cholecystitis Acute Abscess of lung with pneumonia Acute Alcoholic intoxication Acute C1 cervical fracture Acute Chronic Disease Mgmt/Transitional Care Acute Fall Acute Nausea & vomiting Acute Pneumonia Acute Pneumothorax Acute Ribs, multiple fractures Acute Scapula fracture Acute Syncope and collapse Acute
[2017-06-25] MEDS: QUEtiapine FUMARATE 50 MG TAB PO SCH (10:10)
[2017-06-25] MEDS: MODAFINIL 100 MG TAB PO SCH (10:11)
[2017-06-25] MEDS: ATORVASTATIN CALCIUM 20 MG TAB PO SCH (10:14)
[2017-06-25] MEDS: ESCITALOPRAM OXALATE 10 MG TAB PO SCH (10:14)
[2017-06-25] MEDS: ATENOLOL 25 MG TAB PO SCH (10:16)
[2017-06-25] MEDS ORDERED: NS 1,000 ML IV ONE (13:09)
[2017-06-25] MEDS ORDERED: ALTEPLASE 2 MG VIAL IVP PRN (13:22)
[2017-06-25] MEDS ORDERED: NOREPINEPHRINE/NS 500 ML IV SCH (13:30)
[2017-06-25 13:37] LABS: % IMMATURE GRANULYOCYTES 0.8 % (0.0-1.1); ABSOLUTE IMMATURE GRANULOCYTES 0.09 10^3/uL (0.00-0.10); ADD DIFF? NO; ADD MORPH? NO; ADD SCAN? NO; ATYPICAL LYMPHOCYTE FLAG 0 (0-99); FRAGMENT RBC FLAG 0 (0-99); HEMATOCRIT 31.7 % (40.0-51.0); HEMOGLOBIN 10.6 g/dL (13.7-17.5); LEFT SHIFT FLG 10 (0-99); LIPEMIA HEMOLYSIS FLAG 80 (0-99); MEAN CELL HEMOGLOBIN 32.2 pg (27.9-34.1); MEAN CELL HEMOGLOBIN CONCENTR. 33.4 g/dL (32.4-36.7); MEAN CELL VOLUME 96.4 fL (81.5-99.8); PLATELET CLUMPS FLAG 0 (0-99); PLATELET COUNT 145 10^3/uL (150-400); RED BLOOD CELL COUNT 3.29 10^6/uL (4.40-6.38); RED CELL DISTRIBUTION WIDTH 13.8 % (11.5-15.2)
[2017-06-25] MEDS ORDERED: IOPAMIDOL (ISOVUE-300) 100 ML BTL ONE (13:45)
[2017-06-25 14:02] LABS: ANION GAP 13 mEq/L (8-16); CALCIUM 8.2 mg/dL (8.5-10.4); CARBON DIOXIDE 21 mEq/l (22-31); CHLORIDE 108 mEq/L (97-110); CREATININE 1.1 mg/dL (0.7-1.3); GLOMERULAR FILTRATION RATE > 60; GLUCOSE 80 mg/dL (70-100); POTASSIUM 3.9 mEq/L (3.5-5.2); SODIUM 142 mEq/L (134-144)
[2017-06-25 14:48] LABS: PROCALCITONIN 0.71 ng/mL (0.02-0.10)
[2017-06-25] MEDS: NS 1,000 ML IV SCH (14:59)
[2017-06-25] MEDS ORDERED: VANCOMYCIN 1.25 GM in D5W 250 ML IV SCH (15:00)
[2017-06-25] MEDS ORDERED: CANN-EASE 2 GM TUBE TP ONE (15:03)
[2017-06-25 17:17] LABS: COLOR AMBER; LEUKOCYTE ESTERASE,URINE NEGATIVE (NEGATIVE); NITRITE,URINE NEGATIVE (NEGATIVE)
[2017-06-25 17:34] LABS: MUCUS TRACE /lpf (NONE-1+); RBC,URINE 50-182 /hpf (0-3); YEAST PRESENT /hpf (NONE SEEN)
[2017-06-25] MEDS: HYDROmorphone HCL/NS/PF 0.4 MG/2 ML SYR IVP PRN ×3 (17:41→22:04)
[2017-06-25] MEDS: MELATONIN 3 MG TAB PO SCH (21:41)
[2017-06-26] MEDS: NS 1,000 ML IV SCH (01:00)
[2017-06-26] MEDS: HYDROmorphone HCL/NS/PF 0.4 MG/2 ML SYR IVP PRN ×4 (02:42→08:12)
[2017-06-26] MEDS: LEVOTHYROXINE 125 MCG TAB PO SCH (04:35)
[2017-06-26 05:32] LABS: % IMMATURE GRANULYOCYTES 1.1 % (0.0-1.1); ABSOLUTE IMMATURE GRANULOCYTES 0.12 10^3/uL (0.00-0.10); ADD DIFF? NO; ADD MORPH? NO; ADD SCAN? NO; ATYPICAL LYMPHOCYTE FLAG 0 (0-99); FRAGMENT RBC FLAG 0 (0-99); HEMATOCRIT 31.5 % (40.0-51.0); HEMOGLOBIN 10.5 g/dL (13.7-17.5); LEFT SHIFT FLG 20 (0-99); LIPEMIA HEMOLYSIS FLAG 80 (0-99); MEAN CELL HEMOGLOBIN 31.5 pg (27.9-34.1); MEAN CELL HEMOGLOBIN CONCENTR. 33.3 g/dL (32.4-36.7); MEAN CELL VOLUME 94.6 fL (81.5-99.8); MEAN PLATELET VOLUME 10.8 fL (8.7-11.7); PLATELET CLUMPS FLAG 0 (0-99); PLATELET COUNT 170 10^3/uL (150-400); RED BLOOD CELL COUNT 3.33 10^6/uL (4.40-6.38); RED CELL DISTRIBUTION WIDTH 13.8 % (11.5-15.2)
[2017-06-26 05:50] LABS: ALANINE AMINOTRANSFERASE 60 IU/L (21-72); ALBUMIN 2.2 g/dL (3.5-5.0); ALKALINE PHOSPHATASE 138 IU/L (38-126); ANION GAP 11 mEq/L (8-16); ASPARTATE AMINOTRANSFERASE 50 IU/L (17-59); BILIRUBIN,TOTAL 1.6 mg/dL (0.1-1.4); CALCIUM 8.3 mg/dL (8.5-10.4); CARBON DIOXIDE 20 mEq/l (22-31); CHLORIDE 110 mEq/L (97-110); CREATININE 0.7 mg/dL (0.7-1.3); GLOMERULAR FILTRATION RATE > 60; GLUCOSE 81 mg/dL (70-100); POTASSIUM 4.1 mEq/L (3.5-5.2); SODIUM 141 mEq/L (134-144); TOTAL PROTEIN 4.5 g/dL (6.3-8.2)
[2017-06-26] MEDS ORDERED: NALOXONE HCL 0.4 MG/ML INJ IVP PRN ×2 (09:08→11:25)
[2017-06-26] MEDS ORDERED: IOTHALAMATE MEG (CONRAY) 50 ML VIAL IV ONE (09:11)
--- NOTE | 2017-06-26 09:13 | SOAPPROG ---
SOAP Progress Note Assessment/Plan: Assessment: s/p lap felipe on 06/23. Bile leak on HIDA ERCP today Will either need imaging or lap wash out. Will start ELECTROENCEPHALOGRAPHIC TECHNICIAN Spent time discussing bile peritonitis. S: Pain not controlled. O: Lying in bed, appears somewhat still Incisions cdi More distended today Tender to palpation BS hypoactive Plan: 06/25/17 10:01 06/26/17 09:12 Objective: Vital Signs Temp Pulse Resp BP Pulse Ox 37.8 C 92 15 129/57 H 97 06/26/17 08:59 06/26/17 08:59 06/26/17 08:59 06/26/17 08:59 06/26/17 08:59 Laboratory Results 06/26/17 05:15 06/26/17 05:15 06/25/17 06/26/17 06/27/17 05:59 05:59 05:59 Intake Total 1000 1757 Output Total 150 1010 Balance 850 747 ICD10 Worksheet Patient Problems: Problems Problem Status Onset Acalculous cholecystitis Acute Abscess of lung with pneumonia Acute Alcoholic intoxication Acute C1 cervical fracture Acute Chronic Disease Mgmt/Transitional Care Acute Fall Acute Nausea & vomiting Acute Pneumonia Acute Pneumothorax Acute Ribs, multiple fractures Acute Scapula fracture Acute Syncope and collapse Acute
[2017-06-26] MEDS ORDERED: GLUCAGON HCL 1 MG VIAL ONE (09:18)
[2017-06-26] MEDS: ERTAPENEM 1 GM VIAL IVP SCH (09:24)
[2017-06-26] MEDS: ATORVASTATIN CALCIUM 20 MG TAB PO SCH (09:25)
[2017-06-26] MEDS: DIVALPROEX ER 500 MG TAB PO SCH ×2 (09:25→19:39)
[2017-06-26] MEDS: ESCITALOPRAM OXALATE 10 MG TAB PO SCH (09:25)
[2017-06-26] MEDS: GABAPENTIN 400 MG CAP PO SCH ×2 (09:26→19:40)
[2017-06-26] MEDS: MODAFINIL 100 MG TAB PO SCH (09:26)
[2017-06-26] MEDS: QUEtiapine FUMARATE 50 MG TAB PO SCH (09:26)
[2017-06-26] MEDS: ENOXAPARIN 40 MG/0.4 ML SYR SC SCH (10:28)
[2017-06-26] MEDS ORDERED: fentaNYL 250 MCG/5 ML INJ ONE (10:33)
[2017-06-26] MEDS ORDERED: PROPOFOL 200 MG/20 ML VIAL ONE (10:35)
--- NOTE | 2017-06-26 10:40 | HOSPPROG ---
Hospitalist Progress Note Assessment/Plan: 71 yo male admitted with acute cholecystitis, now s/p cholecystectomy on 06/23. Hypotensive to 60's systolic yesterday and moved to the ICU. Pressors were ordered, but he did not need as he responded well to aggressive IVF. While he was decompensating, abx were broadened to include Levaquin and Vancomycin. He was previously on Invanz. CT abd and HIDA scan reveal bile leak. Overnight BP has been stable until this morning and they have again dropped to 86/53. His abd is more distended and continues to be very tender. He is scheduled for an ERCP today. He may need washout Plan: -Await ERCP -Appreciate GI and Surg care -ID to see today. Cx c/w Streptococcus Parasanguinus. Elevated procalcitoning. Will await decision on ongoing abx and possible deescalation -PICC today -Levophed PRN -he is still hypoxic and a CXR is pending. Suspect etiology, however, is abdominal -Hold Losartan and BP meds -Hold NSAIDS -TRAFFIC DIVISION COMMANDING OFFICER for pain mgmt I: -Sepsis -Bile Leak, recent cholecystis on 06/23 -Acute Encephalopathy: resolved, he is back to baseline. -H/O VTE, on LMWH at proph dose -Hx of Factor V Leiden -Bipolar -HTN, chronic Case D/W Dr. Escudero total critical care time is 40 minutes Subjective: lots of abdominal pain. Abd is more distend. BP has dropped again to 86/53. Confusion is significantly improved Objective: Vital Signs Temp Pulse Resp BP Pulse Ox 37.8 C 92 15 133/64 H 98 06/26/17 08:59 06/26/17 10:00 06/26/17 10:00 06/26/17 10:00 06/26/17 10:00 Laboratory Results 06/26/17 05:15 06/26/17 05:15 06/25/17 06/26/17 06/27/17 05:59 05:59 05:59 Intake Total 1000 1757 Output Total 150 1010 Balance 850 747 - Physical Exam Constitutional: no apparent distress Eyes: PERRL, EOMI Ears, Nose, Mouth, Throat: moist mucous membranes, hearing normal Cardiovascular: regular rate and rhythym, No edema Respiratory: rhonchi, No clear to auscultation Gastrointestinal: tenderness, distension, No normoactive bowel sounds, No soft, non-tender abdomen Skin: warm Neurologic: AAOx3 Psychiatric: interacting appropriately, not anxious, not encephalopathic ICD10 Worksheet Patient Problems: Problems Problem Status Onset Acalculous cholecystitis Acute Abscess of lung with pneumonia Acute Alcoholic intoxication Acute C1 cervical fracture Acute Chronic Disease Mgmt/Transitional Care Acute Fall Acute Nausea & vomiting Acute Pneumonia Acute Pneumothorax Acute Ribs, multiple fractures Acute Scapula fracture Acute Syncope and collapse Acute
--- NOTE | 2017-06-26 11:13 | GCON ---
[f rep st] CONSULTATION CHIEF COMPLAINT: Bile leak. HISTORY OF PRESENT ILLNESS: This 71-year-old gentleman has a history of alcoholism and pneumonia. He also has a history of hypertension. He had undergone evaluation for abdominal pain. He was found to have a distended gallbladder on ultrasound. He has had previous biliary colic symptoms. He underwent cholecystectomy. He has been having pain post cholecystectomy and a CT scan that showed hepatic subcapsular fluid collection suggesting a possible bile leak. He had a HIDA scan that was consistent with bile leak. I was asked to see patient for further evaluation and management of bile leak. PAST MEDICAL HISTORY: 1. Bile leak, post cholecystectomy. 2. ETOH. 3. Bipolar disorder. 4. Factor V Leiden. 5. History of C1 fracture. 6. History of pulmonary embolus. 7. Hypothyroidism. SOCIAL HISTORY: He has had no alcohol for a year. Nonsmoker. He is a . FAMILY HISTORY: Family history is negative as it pertains to chief complaint. ALLERGIES: Penicillin and sulfa. MEDICATIONS: Tylenol, Lipitor, Depakote, Lovenox, InVance, Lexapro, Neurontin, Dilaudid, hydromorphone, Levaquin, Synthroid, melatonin, Provigil, Zofran, oxycodone IR, Phenergan, Seroquel, vancomycin. REVIEW OF SYSTEMS: Negative 10 systems other than mentioned in HPI. PHYSICAL EXAMINATION: VITAL SIGNS: He is afebrile, 133/64, pulse of 92, respiratory rate 15, 98% saturation on 4 L. HEENT: Normocephalic, atraumatic. EOMI. NECK: Supple. No cervical adenopathy. LUNGS: Clear. CARDIAC: Normal S1, S2 without murmur. ABDOMEN: Distended. Tenderness to palpation. No appreciable hepatosplenomegaly. EXTREMITIES: Without clubbing, cyanosis, edema. NEUROLOGIC: Nonfocal. SKIN: Warm, dry, intact. PSYCHIATRIC: Alert and oriented x3 with normal affect. LABORATORY DATA: White count of 10.71, hemoglobin of 10.5, hematocrit of 31.5. Serum sodium 141, potassium 4.1, chloride 110. Total bilirubin is 1.6. Alkaline phosphatase of 138. AST of 50. ALT of 60. HIDA scan findings consistent with bile leak. IMPRESSION: 71-year-old gentleman status post laparoscopic cholecystectomy with a subhepatic fluid collection, abdominal pain and HIDA scan consistent with bile leak. RECOMMENDATIONS: Would recommend ERCP with sphincterotomy with stent placements for management of bile leak. We schedule this urgently today. Will follow with you. /[id number]/MODL MTDD
[2017-06-26] MEDS ORDERED: PROMETHAZINE HCL 25 MG/ML INJ IVP PRN (11:25)
[2017-06-26] MEDS ORDERED: fentaNYL 100 MCG/2 ML INJ IVP PRN (11:25)
[2017-06-26] MEDS ORDERED: LR 500 ML IV PRN (11:25)
--- NOTE | 2017-06-26 11:25 | PDANEPAE ---
ANE Past Medical History - Cardiovascular History Hx Hypertension: Yes Hx Arrhythmias: No Hx Chest Pain: No Hx Coronary Artery / Peripheral Vascular Disease: No Hx CHF / Valvular Disease: No Hx Palpitations: No Cardiovascular History Comment: father had 2 MIs in 50s - Pulmonary History Hx COPD: No Hx Asthma/Reactive Airway Disease: No Hx Recent Upper Respiratory Infection: No Hx Oxygen in Use at Home: No Hx Sleep Apnea: No Sleep Apnea Screening Result - Last Documented: Positive Pulmonary History Comment: pneumonia 06/15 on ABX - Neurologic History Hx Cerebrovascular Accident: No Hx Seizures: No Hx Dementia: No Neurologic History Comment: shingles 2011, 2009. numbness tingling R hand, gone with Cspine fusion 05/15 - Endocrine History Hx Diabetes: No Endocrine History Comment: hypothyroid-med - Renal History Hx Renal Disorders: No - Liver History Hx Hepatic Disorders: No Hepatic History Comment: alcohol abuse in past - Neurological & Psychiatric Hx Hx Neurological and Psychiatric Disorders: Yes Neurological / Psychiatric History Comment: depression, anxiety. bipolar - Cancer History Hx Cancer: No - Congenital Disorder History Hx Congenital Disorders: No - GI History Hx Gastrointestinal Disorders: Yes Gastrointestinal History Comment: colonoscopt 2012-benign polyp - Other Health History Other Health History: tonsils out as child. 2 missing teeth. low platelets 2 mo. bennie,decreased Depakote & normal now - Chronic Pain History Chronic Pain: Yes (neck, R shoulder) - Surgical History Prior Surgeries: Cspine fusion 05/15. R shoulder 08/15. L arm 1984. L arm gerard 1998. orbital fx 1995 ANE Review of Systems Review of Systems: ANE Patient History - Allergies Allergies/Adverse Reactions: Penicillins Allergy (Verified 06/22/17 14:11) Unknown Sulfa (Sulfonamide Antibiotics) Allergy (Verified 06/22/17 14:11) Rash - Home Medications Home Medications: Aspirin EC [Aspirin EC 81 mg (*)] 81 mg PO HS 06/22/17 [Last Taken 06/21/17] Atenolol [Tenormin 25 mg (*)] 25 mg PO BID 06/22/17 [Last Taken 06/21/17] Atorvastatin Calcium [Lipitor 20 mg (*)] 20 mg PO DAILY 06/22/17 [Last Taken ] Divalproex ER [Depakote ER 500 MG (*)] 1,000 mg PO HS 06/22/17 [Last Taken 06/21] Divalproex ER [Depakote ER 500 MG (*)] 500 mg PO DAILY 06/22/17 [Last Taken ] Escitalopram Oxalate [Lexapro] 5 mg PO DAILY 06/22/17 [Last Taken 06/21/17] Gabapentin [Neurontin 400 MG (*)] 400 mg PO BID 06/22/17 [Last Taken 06/21/17] Levothyroxine [Synthroid 125 mcg (*)] 125 mcg PO DAILY06 06/22/17 [Last Taken ] Losartan Potassium 100 mg PO DAILY 06/22/17 [Last Taken 06/21/17] Melatonin [Melatonin 3 MG (*)] 3 mg PO HS 06/22/17 [Last Taken 06/21/17] Modafinil [Provigil] 200 mg PO DAILY 06/22/17 [Last Taken 06/21/17] QUEtiapine FUMARATE [Seroquel 50 mg (*)] 150 mg PO DAILY 06/22/17 [Last Taken ] oxyCODONE IR [Oxycodone Ir (*)] 5 mg PO Q4 PRN 06/22/17 [Last Taken 06/19/17] - NPO status NPO Since - Liquids (Date): 06/22/17 NPO Since - Liquids (Time): 17:20 NPO Since - Solids (Date): 06/22/17 NPO Since - Solids (Time): 17:20 - Smoking Hx Smoking Status: Former smoker - Alcohol Use Alcohol Use: Sober - Family Anes Hx Family Hx Anesthesia Complications: no ANE Labs/Vital Signs - Labs Result Diagrams: 06/26/17 05:15 06/26/17 05:15 - Vital Signs Blood Pressure: 133/64 Heart Rate: 92 Respiratory Rate: 15 O2 Sat (%): 98 Height: 170.18 cm Weight: 70.76 kg ANE Physical Exam - Airway Neck exam: decreased ROM Mallampati Score: Class 2 Mouth exam: poor dentition - Pulmonary Pulmonary: reduced air movement, inspiratory crackles - Cardiovascular Cardiovascular: regular rate and rhythym - ASA Status ASA Status: III ANE Anesthesia Plan Anesthesia Plan: general endotracheal anesthesia Urgent/Emergent Case: Ingrid ayoub completed preop but documented later for safe timely pt care
[2017-06-26] MEDS ORDERED: ROCURONIUM 50 MG/5 ML VIAL ONE (11:28)
[2017-06-26] MEDS ORDERED: ONDANSETRON 4 MG/2 ML VIAL ONE (11:28)
[2017-06-26] MEDS ORDERED: LIDOCAINE 2% 5 ML SDV ONE (11:28)
[2017-06-26] MEDS ORDERED: DEXAMETHASONE 4 MG/ML VIAL ONE (11:28)
[2017-06-26] MEDS ORDERED: SUGAMMADEX SODIUM 200 MG/2 ML VIAL IVP ONE (11:32)
--- NOTE | 2017-06-26 11:41 | GIREPORT ---
[facility] - Endoscopy Department Patient Name: CORINA ALMAGUER Procedure Date: 06/26/2017 9:20 AM Patient Type: Inpatient Attending MD/ ER Physician: Jimmy Bashir MD Procedure: ERCP Indications: Bile leak Providers: Jimmy Bashir MD Medicines: General Anesthesia Complications: No immediate complications. Description of Procedure: After obtaining informed consent, the scope was passed under direct vis ion. Throughout the procedure, the patient's blood pressure, pulse, and oxyg en saturations were monitored continuously. The Duodenoscope was introduce d through the mouth, and advanced to the duodenum and used to inject cont rast into the bile duct. The ERCP was accomplished without difficulty. The patient tolerated the procedure well. Findings: The esophagus was successfully intubated under direct vision. The scope was advanced to a normal major papilla in the descending duodenum without detailed examination of the pharynx, larynx and associated structures, and upper GI tract. The upper GI tract was grossly normal. The bile duct wa s deeply cannulated. Contrast was injected. I personally interpreted the bile duct images. Contrast extended to the main bile duct. Contrast extended to the bifurcation. Contrast extended to the hepatic ducts. A 10 mm biliar y sphincterotomy was made with a braided sphincterotome using ERBE electrocautery. There was no post-sphincterotomy bleeding. One 10 Fr by 7 cm plastic stent with two internal flaps was placed into the common bile d uct. Bile flowed through the stent. The stent was in good position. Estimated Blood Loss: Estimated blood loss: none. Post Op Diagnosis: - A biliary sphincterotomy was performed. - One plastic stent was placed into the common bile duct. Recommendation: - Observe patient's clinical course. - Return to endoscopist for stent removal at [facility] in . - Thank you for allowing me to participate in the care of your patient. Attending Participation: I personally performed the entire procedure. Jimmy Bashir MD Jimmy Bashir MD 06/26/2017 11:40:44 AM This report has been signed electronicallyJmimy Bashir MD Number of Addenda: 0 Note Initiated On: 06/26/2017 9:20 AM [email or web address]
[2017-06-26] MEDS ORDERED: PROMETHAZINE HCL 25 MG/ML INJ ONE (11:52)
[2017-06-26] MEDS: PROMETHAZINE HCL 25 MG/ML INJ IVP PRN ×2 (11:58→12:32)
[2017-06-26] MEDS ORDERED: HYDROmorphONE/DILAUDID 1 MG/ML INJ IVP ONE (12:05)
[2017-06-26] MEDS ORDERED: HYDROmorphONE/DILAUDID 1 MG/ML INJ ONE (12:08)
--- NOTE | 2017-06-26 12:40 | ASMTCMCOM ---
CM Note CM Note Notes: D/C plan remains patient to return home with [facility]. CM will follow. Date Signed: 06/26/2017 12:39 PM Electronically Signed By:Anita Acevedo LCSW
[2017-06-26] MEDS: VANCOMYCIN 750 MG in D5W 150 ML IV SCH ×2 (13:29→22:26)
[2017-06-26] MEDS: HYDROmorphONE/DILAUDID 6 MG/30 ML PCA IV PRN (14:39)
[2017-06-26] MEDS: MELATONIN 3 MG TAB PO SCH (19:40)
[2017-06-27 05:42] LABS: % IMMATURE GRANULYOCYTES 1.1 % (0.0-1.1); ABSOLUTE IMMATURE GRANULOCYTES 0.12 10^3/uL (0.00-0.10); ADD DIFF? NO; ADD MORPH? NO; ADD SCAN? NO; ATYPICAL LYMPHOCYTE FLAG 0 (0-99); FRAGMENT RBC FLAG 0 (0-99); HEMATOCRIT 26.6 % (40.0-51.0); HEMOGLOBIN 9.4 g/dL (13.7-17.5); LEFT SHIFT FLG 40 (0-99); LIPEMIA HEMOLYSIS FLAG 90 (0-99); MEAN CELL HEMOGLOBIN 32.2 pg (27.9-34.1); MEAN CELL HEMOGLOBIN CONCENTR. 35.3 g/dL (32.4-36.7); MEAN CELL VOLUME 91.1 fL (81.5-99.8); MEAN PLATELET VOLUME 11.3 fL (8.7-11.7); PLATELET CLUMPS FLAG 0 (0-99); PLATELET COUNT 207 10^3/uL (150-400); RED BLOOD CELL COUNT 2.92 10^6/uL (4.40-6.38); RED CELL DISTRIBUTION WIDTH 13.6 % (11.5-15.2)
[2017-06-27] MEDS: HYDROmorphONE/DILAUDID 6 MG/30 ML PCA IV PRN (06:18)
[2017-06-27 06:38] LABS: % IMMATURE GRANULYOCYTES 1.1 % (0.0-1.1); ABSOLUTE IMMATURE GRANULOCYTES 0.13 10^3/uL (0.00-0.10); ADD DIFF? NO; ADD MORPH? NO; ADD SCAN? NO; ATYPICAL LYMPHOCYTE FLAG 10 (0-99); FRAGMENT RBC FLAG 0 (0-99); HEMATOCRIT 29.9 % (40.0-51.0); HEMOGLOBIN 10.4 g/dL (13.7-17.5); LEFT SHIFT FLG 40 (0-99); LIPEMIA HEMOLYSIS FLAG 90 (0-99); MEAN CELL HEMOGLOBIN 31.6 pg (27.9-34.1); MEAN CELL HEMOGLOBIN CONCENTR. 34.8 g/dL (32.4-36.7); MEAN CELL VOLUME 90.9 fL (81.5-99.8); PLATELET CLUMPS FLAG 0 (0-99); PLATELET COUNT 226 10^3/uL (150-400); RED BLOOD CELL COUNT 3.29 10^6/uL (4.40-6.38); RED CELL DISTRIBUTION WIDTH 13.6 % (11.5-15.2)
[2017-06-27 06:48] LABS: ALANINE AMINOTRANSFERASE 59 IU/L (21-72); ALBUMIN 2.3 g/dL (3.5-5.0); ALKALINE PHOSPHATASE 169 IU/L (38-126); ANION GAP 11 mEq/L (8-16); ASPARTATE AMINOTRANSFERASE 83 IU/L (17-59); BILIRUBIN,TOTAL 1.5 mg/dL (0.1-1.4); CALCIUM 8.6 mg/dL (8.5-10.4); CARBON DIOXIDE 23 mEq/l (22-31); CHLORIDE 107 mEq/L (97-110); CREATININE 0.5 mg/dL (0.7-1.3); GLOMERULAR FILTRATION RATE > 60; GLUCOSE 98 mg/dL (70-100); POTASSIUM 4.1 mEq/L (3.5-5.2); SODIUM 141 mEq/L (134-144); TOTAL PROTEIN 4.5 g/dL (6.3-8.2)
[2017-06-27] MEDS ORDERED: BUPIVACAINE/EPI 0.5% 30 ML SDV ONE (07:13)
[2017-06-27] MEDS ORDERED: BUPIVACAINE 0.5% 30 ML SDV ONE (07:17)
[2017-06-27] MEDS ORDERED: ZOLPIDEM TARTRATE 5 MG TAB PO PRN (07:28)
--- NOTE | 2017-06-27 07:28 | SOAPPROG ---
[facility] Progress Note Assessment/Plan: Assessment: s/p lap felipe on 06/23. Bile leak on HIDA ERCP with stent placed (need to remove stent in 4-6 weeks) Apprec[address] Dr. Bashir jack frame tender today - will proceed with lap wash out. Discussed imaging but so tender to palpation that I do not think imaging will car changer Risks and benefits discussed Hope clears after OR S: Not sleeping well O: Sitting in chair, better than yesterday Incisions cdi Less distended today Very Tender to palpation and percussion BS hypoactive Plan: 06/25/17 10:01 06/26/17 09:12 06/27/17 07:27 Objective: Vital Signs Temp Pulse Resp BP Pulse Ox 98.7 C H 73 19 116/54 L 95 06/27/17 07:14 06/27/17 07:14 06/27/17 07:14 06/27/17 07:14 06/27/17 07:14 Laboratory Results 06/27/17 06:30 06/27/17 06:30 06/26/17 06/27/17 06/28/17 05:59 05:59 05:59 Intake Total 1757 4173 Output Total 1010 1500 Balance 744 4838 ICD10 Worksheet Patient Problems: Problems Problem Status Onset Acalculous cholecystitis Acute Abscess of lung with pneumonia Acute Alcoholic intoxication Acute C1 cervical fracture Acute Chronic Disease Mgmt/Transitional Care Acute Fall Acute Nausea & vomiting Acute Pneumonia Acute Pneumothorax Acute Ribs, multiple fractures Acute Scapula fracture Acute Syncope and collapse Acute
[2017-06-27] MEDS ORDERED: PROPOFOL/EMULSION 500 MG/50 ML BOTTLE IV ONE (08:04)
[2017-06-27] MEDS ORDERED: MIDAZOLAM 2 MG/2 ML VIAL ONE (08:04)
[2017-06-27] MEDS ORDERED: fentaNYL 100 MCG/2 ML INJ ONE ×2 (08:04→09:51)
[2017-06-27] MEDS: ENOXAPARIN 40 MG/0.4 ML SYR SC SCH (08:25)
[2017-06-27] MEDS: LEVOTHYROXINE 125 MCG TAB PO SCH ×2 (08:25→11:51)
[2017-06-27] MEDS: DIVALPROEX ER 500 MG TAB PO SCH ×3 (08:25→21:16)
[2017-06-27] MEDS: ATORVASTATIN CALCIUM 20 MG TAB PO SCH (08:25)
[2017-06-27] MEDS: MODAFINIL 100 MG TAB PO SCH (08:26)
[2017-06-27] MEDS: GABAPENTIN 400 MG CAP PO SCH ×3 (08:26→21:16)
[2017-06-27] MEDS: ESCITALOPRAM OXALATE 10 MG TAB PO SCH ×2 (08:26→11:52)
[2017-06-27] MEDS: QUEtiapine FUMARATE 50 MG TAB PO SCH (08:26)
[2017-06-27] MEDS ORDERED: PHENYLEPHRINE HCL 100 MCG/ML SYR ONE (08:33)
[2017-06-27] MEDS ORDERED: ROCURONIUM 50 MG/5 ML VIAL ONE ×2 (08:33→09:10)
[2017-06-27] MEDS ORDERED: ONDANSETRON 4 MG/2 ML VIAL ONE (08:33)
[2017-06-27] MEDS ORDERED: LIDOCAINE 2% 5 ML SDV ONE (08:33)
[2017-06-27] MEDS ORDERED: SUGAMMADEX SODIUM 200 MG/2 ML VIAL IVP ONE (08:33)
[2017-06-27] MEDS ORDERED: LR 500 ML IV PRN (08:50)
[2017-06-27] MEDS ORDERED: DEXAMETHASONE 4 MG/ML VIAL IVP PRN (08:50)
[2017-06-27] MEDS ORDERED: fentaNYL 100 MCG/2 ML INJ IVP PRN (08:50)
[2017-06-27] MEDS ORDERED: ALBUTEROL 3 ML DEYVIAL IH PRN (08:50)
[2017-06-27] MEDS ORDERED: ONDANSETRON 4 MG/2 ML VIAL IVP PRN (08:50)
--- NOTE | 2017-06-27 08:50 | PDANEPAE ---
ANE Past Medical History - Cardiovascular History Hx Hypertension: Yes Hx Arrhythmias: No Hx Chest Pain: No Hx Coronary Artery / Peripheral Vascular Disease: No Hx CHF / Valvular Disease: No Hx Palpitations: No Cardiovascular History Comment: father had 2 MIs in 50s - Pulmonary History Hx COPD: No Hx Asthma/Reactive Airway Disease: No Hx Recent Upper Respiratory Infection: No Hx Oxygen in Use at Home: No Hx Sleep Apnea: Yes Sleep Apnea Screening Result - Last Documented: Positive Pulmonary History Comment: pneumonia 06/15 on ABX - Neurologic History Hx Cerebrovascular Accident: No Hx Seizures: No Hx Dementia: No Neurologic History Comment: shingles 2011, 2009. numbness tingling R hand, gone with Cspine fusion 05/15 - Endocrine History Hx Diabetes: No Endocrine History Comment: hypothyroid-med - Renal History Hx Renal Disorders: No - Liver History Hx Hepatic Disorders: No Hepatic History Comment: alcohol abuse in past - Neurological & Psychiatric Hx Hx Neurological and Psychiatric Disorders: Yes Neurological / Psychiatric History Comment: depression, anxiety. bipolar - Cancer History Hx Cancer: No - Congenital Disorder History Hx Congenital Disorders: No - GI History Hx Gastrointestinal Disorders: Yes Gastrointestinal History Comment: colonoscopt 2012-benign polyp - Other Health History Other Health History: tonsils out as child. 2 missing teeth. low platelets 2 mo. bennie,decreased Depakote & normal now - Chronic Pain History Chronic Pain: Yes (neck, R shoulder) - Surgical History Prior Surgeries: Cspine fusion 05/15. R shoulder 08/15. L arm 1984. L arm gerard 1998. orbital fx 1995 ANE Review of Systems Review of Systems: ANE Patient History - Allergies Allergies/Adverse Reactions: Penicillins Allergy (Verified 06/22/17 14:11) Unknown Sulfa (Sulfonamide Antibiotics) Allergy (Verified 06/22/17 14:11) Rash - Home Medications Home Medications: Aspirin EC [Aspirin EC 81 mg (*)] 81 mg PO HS 06/22/17 [Last Taken 06/21/17] Atenolol [Tenormin 25 mg (*)] 25 mg PO BID 06/22/17 [Last Taken 06/21/17] Atorvastatin Calcium [Lipitor 20 mg (*)] 20 mg PO DAILY 06/22/17 [Last Taken ] Divalproex ER [Depakote ER 500 MG (*)] 1,000 mg PO HS 06/22/17 [Last Taken 06/21] Divalproex ER [Depakote ER 500 MG (*)] 500 mg PO DAILY 06/22/17 [Last Taken ] Escitalopram Oxalate [Lexapro] 5 mg PO DAILY 06/22/17 [Last Taken 06/21/17] Gabapentin [Neurontin 400 MG (*)] 400 mg PO BID 06/22/17 [Last Taken 06/21/17] Levothyroxine [Synthroid 125 mcg (*)] 125 mcg PO DAILY06 06/22/17 [Last Taken ] Losartan Potassium 100 mg PO DAILY 06/22/17 [Last Taken 06/21/17] Melatonin [Melatonin 3 MG (*)] 3 mg PO HS 06/22/17 [Last Taken 06/21/17] Modafinil [Provigil] 200 mg PO DAILY 06/22/17 [Last Taken 06/21/17] QUEtiapine FUMARATE [Seroquel 50 mg (*)] 150 mg PO DAILY 06/22/17 [Last Taken ] oxyCODONE IR [Oxycodone Ir (*)] 5 mg PO Q4 PRN 06/22/17 [Last Taken 06/19/17] - NPO status NPO Since - Liquids (Date): 06/26/17 NPO Since - Liquids (Time): 00:00 NPO Since - Solids (Date): 06/26/17 NPO Since - Solids (Time): 00:00 - Smoking Hx Smoking Status: Former smoker - Alcohol Use Alcohol Use: Sober - Family Anes Hx Family Hx Anesthesia Complications: no ANE Labs/Vital Signs - Labs Result Diagrams: 06/27/17 06:30 06/27/17 06:30 - Vital Signs Blood Pressure: 116/54 Heart Rate: 73 Respiratory Rate: 19 O2 Sat (%): 95 Height: 170.18 cm Weight: 70.76 kg ANE Physical Exam - Airway Neck exam: FROM Mallampati Score: Class 1 Mouth exam: normal dental/mouth exam - Pulmonary Pulmonary: no respiratory distress, no rales or rhonchi, reduced air movement - Cardiovascular Cardiovascular: regular rate and rhythym, no murmur, rub, or gallop - ASA Status ASA Status: III ANE Anesthesia Plan Anesthesia Plan: general endotracheal anesthesia
[2017-06-27] MEDS: ERTAPENEM 1 GM VIAL IVP SCH (08:55)
--- NOTE | 2017-06-27 09:35 | POSTOPPROG ---
Post Op Note Date of Operation: 06/27/17 Surgeon: Ivette Escudero Anesthesiologist: nathaniel Anesthesia: GET(General Endotracheal) Pre-op Diagnosis: bile peritonitis Post-op Diagnosis: same Indication: 71 yo s/p lap felipe with bile leak Procedure: laparoscopic wash out, carlos, drain placement Findings: lots of adhesions. 700 bile Inf/Abcess present in the surg proc area at time of surgery?: Yes Depth: Organ Space EBL: Minimal Drains: Martinez Rowland Specimen(s): bile
[2017-06-27] MEDS ORDERED: HYDROmorphONE/DILAUDID 1 MG/ML INJ IVP PRN ×2 (09:36→10:10)
--- NOTE | 2017-06-27 09:47 | SOAPPROG ---
SOAP Progress Note Assessment/Plan: Assessment: Prior Lap Trudi with bile leak. S/p ERCP with sphincterotomy ans stent placement yesterday, 10 Fr, 7 cm stent. Patient is post op for bile peritonitis with peritoneal wash and drain placement. Plan: 1. Follow clinically 2. Stent removal in 6 - 8 weeks by EGD 06/27/17 09:44 Subjective: CC: S/p Lap Trudi, bile peritonitis and bile leak Objective: Vital Signs Temp Pulse Resp BP Pulse Ox 98.7 C H 73 19 116/54 L 95 06/27/17 07:57 06/27/17 08:50 06/27/17 08:50 06/27/17 08:50 06/27/17 08:50 Laboratory Results 06/27/17 06:30 06/27/17 06:30 06/26/17 06/27/17 06/28/17 05:59 05:59 05:59 Intake Total 1757 4173 Output Total 1010 1500 Balance 747 2673 Generic Name Dose Route Start Last Admin Trade Name Jeradq PRN Reason Stop Dose Admin Acetaminophen 650 mg 06/22/17 17:19 06/25/17 10:08 Tylenol PO 12/19/17 17:18 650 mg Q4HRS PRN Administration Pain, Mild/Fever, Can Take PO Albuterol 3 ml 06/27/17 08:50 Proventil Neb IH 06/27/17 09:50 Q10M PRN PACU, Wheezing Alteplase, Recombinant 2 mg 06/25/17 13:22 Cathflo Activase IVP 12/22/17 13:21 PRN PRN Per PICC line policy Atorvastatin Calcium 20 mg 06/23/17 09:00 06/27/17 08:25 Lipitor PO 12/20/17 08:59 Not Given DAILY BYRON Dexamethasone 4 mg 06/27/17 08:50 Decadron Injection IVP 06/27/17 09:50 ONCE PRN PACU, Nausea/Vomiting Divalproex Sodium 500 mg 06/23/17 09:00 06/27/17 08:25 Depakote Er PO 12/20/17 08:59 Not Given DAILY BYRON Divalproex Sodium 1,000 mg 06/22/17 21:00 06/26/17 19:39 Depakote Er PO 12/19/17 20:59 Not Given HS BYRON Enoxaparin Sodium 40 mg 06/23/17 09:00 06/27/17 08:25 Lovenox SC 12/20/17 08:59 Not Given DAILY BY[facility] Ertapenem 1 gm 06/23/17 09:00 06/27/17 08:55 Invanz IVP 07/23/17 08:59 Not Given DAILY BY[facility] Escitalopram Oxalate 5 mg 06/23/17 09:00 06/27/17 08:26 Lexapro PO 12/20/17 08:59 Not Given DAILY BY[facility] Fentanyl 25 - 100 mcg 06/27/17 08:50 Sublimaze IVP 06/27/17 09:50 Q5M PRN PACU, IMMEDIATE Pain control Gabapentin 400 mg 06/22/17 21:00 06/27/17 08:26 Neurontin PO 12/19/17 20:59 Not Given BID BYRON Hydromorphone/Sodium Chloride 0.2 - 0.4 mg 06/27/17 09:39 Hydromorphone IVP 07/07/17 09:38 Q1H PRN Pain, Severe Unable to Take PO Norepinephrine/Sodium Chloride 500 mls @ 0 mls/hr 06/25/17 13:30 Norepinephrine 8 Mcg/Ml (Premix) IV 12/22/17 13:29 CONT BYRON Protocol Titrate Sodium Chloride 1,000 mls @ 150 mls/hr 06/25/17 14:45 06/27/17 00:00 Ns IV 12/22/17 14:44 1,000 mls CONT BYRON Administration Vancomycin HCl 750 mg/ 150 mls @ 150 mls/hr 06/26/17 10:00 06/26/17 22:26 Dextrose IV 07/26/17 09:59 150 mls Q12H BYRON Administration Lactated Ringer's 500 mls @ 0 mls/hr 06/27/17 08:50 Lr IV 06/27/17 09:50 PRN PRN PACU, Nausea/Vomiting Post-Op Wide Open Levothyroxine Sodium 125 mcg 06/23/17 06:00 06/27/17 08:25 Synthroid PO 12/20/17 05:59 Not Given DAILY06 [facility] Melatonin 3 mg 06/22/17 21:00 06/26/17 19:40 Melatonin PO 12/19/17 20:59 Not Given HS [facility] Modafinil 200 mg 06/24/17 09:45 06/27/17 08:26 Provigil PO 12/21/17 09:44 Not Given DAILY [facility] Morphine Sulfate 1 - 4 mg 06/27/17 08:50 Morphine IVP 06/27/17 09:50 Q10M PRN PACU, PAIN Ondansetron HCl 4 mg 06/22/17 17:19 Zofran IVP 12/19/17 17:18 Q4HRS PRN Nausea/Vomiting, Can't Take PO Ondansetron HCl 4 mg 06/22/17 17:19 Zofran Odt PO 12/19/17 17:18 Q4HRS PRN Nausea/Vomiting, Use 1st Ondansetron HCl 2 - 4 mg 06/27/17 08:50 Zofran IVP 06/27/17 09:50 Q10M PRN PACU, Nausea/Vomiting Oxycodone HCl 10 - 15 mg 06/24/17 15:17 06/25/17 10:46 Oxycodone Ir PO 07/04/17 15:16 10 mg Q4HRS PRN Administration Pain, Severe Able to Take PO Promethazine HCl 6.25 - 12.5 mg 06/22/17 17:19 06/26/17 12:32 Phenergan IVP 12/19/17 17:18 6.25 mg Q6HRS PRN Administration Nausea/Vomiting, Use 2nd Quetiapine Fumarate 150 mg 06/23/17 09:00 06/27/17 08:26 Seroquel PO 12/20/17 08:59 Not Given DAILY [facility] Vancomycin HCl 1 each 06/25/17 14:00 Vancomycin Pharmacy To Dose, 15-20 Mcg/Ml [facility] [place] 12/22/17 13:59 AD [facility] Protocol Zolpidem Tartrate 5 mg 06/27/17 07:28 Ambien PO 12/24/17 07:27 HS PRN Sleep/Insomnia Discontinued Medications Generic Name Dose Route Start Last Admin Trade Name Freq PRN Reason Stop Dose Admin Albuterol 3 ml 06/23/17 06:00 Proventil Neb IH 06/23/17 07:00 Q10M PRN PACU, Wheezing Atenolol 25 mg 06/22/17 21:00 Tenormin PO 12/19/17 20:59 BID BYRON Atenolol 25 mg 06/22/17 21:00 06/25/17 10:16 Tenormin PO 12/19/17 20:59 Not Given BID [facility] Atorvastatin Calcium 20 mg 06/23/17 09:00 Lipitor PO 12/20/17 08:59 DAILY [facility] Bupivacaine HCl Confirm 06/23/17 05:47 06/23/17 09:44 Sensorcaine 0.5% Vial Administered 06/23/17 05:48 Not Given Dose 30 ml .ROUTE .STK-MED ONE Bupivacaine HCl Confirm 06/27/17 07:17 06/27/17 08:35 Sensorcaine 0.5% Vial Administered 06/27/17 07:18 18 ml Dose Administration 30 ml .ROUTE .STK-MED ONE Bupivacaine HCl/Epinephrine Bitart Confirm 06/27/17 07:13 06/27/17 08:57 Bupivacaine/Epi Administered 06/27/17 07:14 Not Given Dose 30 ml .ROUTE .STK-MED ONE Cefazolin Sodium Confirm 06/23/17 05:48 06/23/17 06:48 Ancef Syringe Administered 06/23/17 05:49 1 gm Dose Administration 1 gm .ROUTE .STK-MED ONE Divalproex Sodium 500 mg 06/23/17 09:00 Depakote Er PO 12/20/17 08:59 DAILY [facility] Divalproex Sodium 1,000 mg 06/22/17 21:00 Depakote Er PO 12/19/17 20:59 HS [facility] Enoxaparin Sodium 40 mg 06/23/17 09:00 Lovenox SC 12/20/17 08:59 DAILY [facility] Ertapenem 1 gm 06/22/17 16:19 06/22/17 16:50 Invanz IVP 06/22/17 16:20 1 gm EDNOW ONE Administration Protocol Ertapenem 1 gm 06/22/17 23:00 06/22/17 23:13 Invanz IVP 07/22/17 22:59 Not Given DAILY [facility] Fentanyl 25 - 100 mcg 06/23/17 06:00 Sublimaze IVP 06/23/17 07:00 Q5M PRN PACU, IMMEDIATE Pain control Fentanyl Confirm 06/23/17 06:02 Sublimaze Administered 06/23/17 06:03 Dose 100 mcg .ROUTE .STK-MED ONE Fentanyl Confirm 06/23/17 06:58 Sublimaze Administered 06/23/17 06:59 Dose 100 mcg .ROUTE .STK-MED ONE Fentanyl 25 - 100 mcg 06/26/17 11:25 Sublimaze IVP 06/26/17 12:25 Q5M PRN PACU, IMMEDIATE Pain control Fentanyl Confirm 06/27/17 08:04 Sublimaze Administered 06/27/17 08:05 Dose 100 mcg .ROUTE .STK-MED ONE Gabapentin 400 mg 06/22/17 21:00 Neurontin PO 12/19/17 20:59 BID BYRON Glucagon Confirm 06/26/17 09:18 Glucagon Administered 06/26/17 09:19 Dose 1 mg .ROUTE .STK-MED ONE Heparin Sodium (Porcine) Confirm 06/23/17 05:47 06/23/17 06:49 Heparin Sodium Administered 06/23/17 05:48 2,000 unit Dose Administration 2,000 unit .ROUTE .STK-MED ONE Hydromorphone HCl 0.4 - 0.8 mg 06/22/17 22:49 06/24/17 06:18 Dilaudid IVP 07/02/17 22:48 0.8 mg Q2 PRN Administration Pain, Severe Hydromorphone HCl 0.1 - 0.4 mg 06/23/17 06:00 Dilaudid IVP 06/23/17 07:00 Q10M PRN PACU, PAIN Hydromorphone HCl 0 mg 06/26/17 09:08 06/27/17 06:18 Dilaudid Basket Sorter IV 07/06/17 09:07 6 mg PRN PRN Administration Pain, Severe Unable to Take PO Protocol Hydromorphone HCl Confirm 06/26/17 12:08 Dilaudid Administered 06/26/17 12:09 Dose 1 mg .ROUTE .STK-MED ONE Hydromorphone HCl 0.4 mg 06/26/17 12:05 06/26/17 12:05 Dilaudid IVP 06/26/17 12:06 0.4 mg ONCE ONE Administration Hydromorphone/Sodium Chloride 0.2 - 0.4 mg 06/24/17 18:50 06/26/17 04:34 Hydromorphone IVP 07/04/17 18:49 0.4 mg Q2HRS PRN Administration Pain, Severe Unable to Take PO Hydromorphone/Sodium Chloride 0.4 - 0.8 mg 06/26/17 05:31 06/26/17 08:12 Hydromorphone IVP 07/04/17 18:49 0.8 mg Q2HRS PRN Administration Pain, Severe Unable to Take PO Sodium Chloride 1,000 mls @ 0 mls/hr 06/22/17 14:38 06/22/17 14:54 Ns IV 06/22/17 14:39 1,000 mls EDNOW ONE Administration Protocol Wide Open Lidocaine HCl 100 mg/ Sodium 110 mls @ 600 mls/hr 06/22/17 14:38 06/22/17 15: 01 Chloride IV 06/22/17 14:48 110 mls EDNOW ONE Administration Sodium Chloride 1,000 mls @ 150 mls/hr 06/22/17 17:30 06/22/17 18:34 Ns IV 12/19/17 17:29 1,000 mls CONT BYRON Administration Lactated Ringer's 1,000 mls @ 0 mls/hr 06/23/17 05:51 06/23/17 09:45 Lr IV 06/23/17 05:52 Not Given ONCE ONE KVO Potassium Chloride/Dextrose/Sod Cl 1,000 mls @ 100 mls/hr 06/23/17 14:15 06:26 D5w 1/2 Ns W/ 20 Kcl/L IV 12/20/17 14:14 1,000 mls CONT BYRON Administration Sodium Chloride 1,000 mls @ 75 mls/hr 06/25/17 08:00 06/25/17 10:46 Ns IV 12/22/17 07:59 1,000 mls CONT BYRON Administration Sodium Chloride 500 mls @ 1,500 mls/hr 06/25/17 09:03 06/25/17 10:06 Ns IV 06/25/17 09:22 500 mls ONCE ONE Administration Sodium Chloride 1,000 mls @ 3,000 mls/hr 06/25/17 13:09 06/25/17 13:14 Ns IV 06/25/17 13:28 1,000 mls ONCE ONE Administration Levofloxacin/Dextrose 150 mls @ 100 mls/hr 06/25/17 14:00 06/26/17 09:34 Levaquin 750 Mg (Premix) IV 07/25/17 13:59 150 mls DAILY BYRON Administration Protocol Vancomycin HCl 1.25 gm/ 250 mls @ 166.667 mls/hr 06/25/17 15:00 06/25/17 14: 47 Dextrose IV 07/25/17 14:59 250 mls Q24H BYRON Administration Lactated Ringer's 500 mls @ 0 mls/hr 06/26/17 11:25 Lr IV 06/26/17 12:26 PRN PRN PACU, Nausea/Vomiting Post-Op Wide Open Iopamidol Confirm 06/25/17 13:45 Isovue-300 Administered 06/25/17 13:46 Dose 100 ml .ROUTE .STK-MED ONE Iothalamate Meglumine Confirm 06/26/17 09:11 Conray Administered 06/26/17 09:12 Dose 50 ml IV .STK-MED ONE Ketorolac Tromethamine 30 mg 06/22/17 17:15 06/22/17 18:06 Toradol IVP 06/22/17 17:16 30 mg EDNOW ONE Administration Ketorolac Tromethamine 30 mg 06/22/17 17:18 Toradol IVP 06/27/17 17:17 Q6HRS PRN Pain, Inflammatory Ketorolac Tromethamine 30 mg 06/22/17 17:47 06/23/17 09:54 Toradol IVP 06/27/17 17:17 30 mg Q6HRS PRN Administration Pain, Inflammatory Ketorolac Tromethamine 15 mg 06/23/17 18:00 06/25/17 13:14 Toradol IVP 06/28/17 17:59 Not Given Q6 BY[facility] Levothyroxine Sodium 125 mcg 06/23/17 06:00 Synthroid PO 12/20/17 05:59 DAILY06 [facility] Lidocaine HCl Confirm 06/27/17 08:33 Xylocaine-Mpf 2% Vial Administered 06/27/17 08:34 Dose 5 ml .ROUTE .STK-MED ONE Losartan Potassium 100 mg 06/23/17 09:00 06/24/17 08:37 Cozaar PO 12/20/17 08:59 100 mg DAILY [facility] Administration Melatonin 3 mg 06/22/17 21:00 Melatonin PO 12/19/17 20:59 HS BYRON Midazolam HCl 2 mg 06/23/17 05:58 06/23/17 06:02 Versed IVP 06/23/17 05:59 2 mg ONCALL ONE Administration Midazolam HCl Confirm 06/23/17 06:01 Versed Administered 06/23/17 06:02 Dose 2 mg .ROUTE .STK-MED ONE Midazolam HCl Confirm 06/27/17 08:04 Versed Administered 06/27/17 08:05 Dose 2 mg .ROUTE .STK-MED ONE Miscellaneous Confirm 06/25/17 15:03 Madeline-Ease 2 Gm Administered 06/25/17 15:04 Dose 2 sudarshan TP .STK-MED ONE Miscellaneous Medication 5 mg 06/23/17 09:00 Escitalopram Oxalate [Lexapro] PO 12/20/17 08:59 DAILY BY[facility] Miscellaneous Medication 100 mg 06/23/17 09:00 Losartan Potassium [Losartan Potassium] PO 12/20/17 08:59 DAILY BY[facility] Miscellaneous Medication 200 mg 06/23/17 09:00 Modafinil [Provigil] PO 12/20/17 08:59 DAILY BY[facility] Miscellaneous Medication 200 mg 06/23/17 09:00 06/24/17 08:47 Modafinil [Provigil] PO 12/20/17 08:59 Not Given DAILY [facility] Morphine Sulfate 1 - 4 mg 06/26/17 11:25 06/26/17 13:10 Morphine IVP 06/26/17 12:25 2 mg Q10M PRN Administration PACU, PAIN Morphine Sulfate Confirm 06/26/17 12:52 Morphine Administered 06/26/17 12:53 Dose 4 mg .ROUTE .STK-MED ONE Naloxone HCl 0.1 mg 06/23/17 06:00 Narcan IVP 06/23/17 07:00 Q2M PRN PACU Resp Rate <10/min Naloxone HCl 0 mg 06/26/17 09:08 Narcan IVP 12/23/17 09:07 PRN PRN Respiratory depression Protocol Naloxone HCl 0.1 mg 06/26/17 11:25 Narcan IVP 06/26/17 12:25 Q2M PRN PACU Resp Rate <10/min Ondansetron HCl 4 mg 06/22/17 14:38 06/22/17 14:55 Zofran IVP 06/22/17 14:39 4 mg EDNOW ONE Administration Ondansetron HCl Confirm 06/27/17 08:33 Zofran Administered 06/27/17 08:34 Dose 4 mg .ROUTE .STK-MED ONE Oxycodone/Acetaminophen 1 - 2 tab 06/23/17 14:11 06/24/17 08:32 Percocet 5/325 PO 07/03/17 14:10 2 tab Q4 PRN Administration Pain, Severe Able to Take PO Phenylephrine HCl Confirm 06/27/17 08:33 Neosynephrine Administered 06/27/17 08:34 Dose 1,000 mcg .ROUTE .STK-MED ONE Promethazine HCl 6.25 - 12.5 mg 06/26/17 11:25 Phenergan IVP 06/26/17 12:26 Q5M PRN PACUNausea/Vomiting, Unable PO Propofol Confirm 06/23/17 06:06 Diprivan 10 Mg/Ml (Premix) Administered 06/23/17 06:07 Dose 500 mg IV .STK-MED ONE Propofol Confirm 06/27/17 08:04 Diprivan 10 Mg/Ml (Premix) Administered 06/27/17 08:05 Dose 500 mg IV .STK-MED ONE Quetiapine Fumarate 150 mg 06/23/17 09:00 Seroquel PO 12/20/17 08:59 DAILY BYRON Rocuronium [place] Confirm 06/27/17 08:33 Zemuron Administered 06/27/17 08:34 Dose 50 mg .ROUTE .STK-MED ONE Rocuronium [place] Confirm 06/27/17 09:10 Zemuron Administered 06/27/17 09:11 Dose 50 mg .ROUTE .STK-MED ONE Sugammadex Sodium Confirm 06/23/17 07:12 Bridion Administered 06/23/17 07:13 Dose 200 mg IVP .STK-MED ONE Sugammadex Sodium Confirm 06/27/17 08:33 Bridion Administered 06/27/17 08:34 Dose 200 mg IVP .STK-MED ONE Physical Exam - Physical Exam General Appearance: alert, other (confused in PACU) Respiratory: lungs clear Cardiac/Chest: regular rate, rhythm Abdomen: other (tender to palpation) Skin: normal color, warm/dry Neuro/Psych: cognition abnormalities ICD10 Worksheet Patient Problems: Problems Problem Status Onset Acalculous cholecystitis Acute Abscess of lung with pneumonia Acute Alcoholic intoxication Acute C1 cervical fracture Acute Chronic Disease Mgmt/Transitional Care Acute Fall Acute Nausea & vomiting Acute Pneumonia Acute Pneumothorax Acute Ribs, multiple fractures Acute Scapula fracture Acute Syncope and collapse Acute
[2017-06-27] MEDS ORDERED: HYDROmorphONE/DILAUDID 1 MG/ML INJ ONE (09:50)
[2017-06-27] MEDS ORDERED: NALOXONE HCL 0.4 MG/ML INJ IVP PRN (10:10)
[2017-06-27] MEDS: NS 1,000 ML IV SCH ×2 (11:24)
--- NOTE | 2017-06-27 11:51 | HOSPPROG ---
Hospitalist Progress Note Assessment/Plan: 71 yo male admitted with acute cholecystitis, now s/p cholecystectomy on 06/23. E/O sepsis on 06/25 and abx broadened. Bile leak diagnosed. S/P ERCP with sphincterotomy and stent placement 06/26. S/p abdominal washout for bile peritonitis today. BP's better. 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 Hydralazine PRN elevated BP. PT Keep inpatient I: -Sepsis -Bile Leak, recent cholecystis on 06/23 -Acute Encephalopathy: resolved, he is back to baseline. -H/O VTE, on LMWH at proph dose -Hx of Factor V Leiden -Bipolar -HTN, chronic Subjective: had washout for bile peritonitis this morning. s/p sphinctertomy with stent placement yesterday. Still with abd pain, better than yesterday. Objective: Vital Signs Temp Pulse Resp BP Pulse Ox 37.4 C 81 18 144/74 H 92 06/27/17 10:59 06/27/17 10:59 06/27/17 10:59 06/27/17 10:59 06/27/17 10:59 Microbiology 06/27/17 08:40 Gram Stain - Final Abdomen - Other Laboratory Results 06/27/17 06:30 06/27/17 06:30 06/26/17 06/27/17 06/28/17 05:59 05:59 05:59 Intake Total 1757 4173 450 Output Total 1010 1500 130 Balance 747 2673 320 - Physical Exam Constitutional: no apparent distress, appears nourished Eyes: PERRL, EOMI Ears, Nose, Mouth, Throat: moist mucous membranes, hearing normal Cardiovascular: regular rate and rhythym, No edema Respiratory: reduced air movement Gastrointestinal: tenderness, No distension Genitourinary: no bladder fullness Skin: warm Neurologic: AAOx3 Psychiatric: interacting appropriately, not anxious, not encephalopathic ICD10 Worksheet Patient Problems: Problems Problem Status Onset Acalculous cholecystitis Acute Abscess of lung with pneumonia Acute Alcoholic intoxication Acute C1 cervical fracture Acute Chronic Disease Mgmt/Transitional Care Acute Fall Acute Nausea & vomiting Acute Pneumonia Acute Pneumothorax Acute Ribs, multiple fractures Acute Scapula fracture Acute Syncope and collapse Acute
[2017-06-27] MEDS: VANCOMYCIN 750 MG in D5W 150 ML IV SCH ×2 (11:55→22:56)
--- NOTE | 2017-06-27 12:02 | GOP ---
[f rep st] OPERATIVE REPORT DATE OF OPERATION: 06/27/2017 SURGEON: Ivette Escudero MD ANESTHESIA: General. ANESTHESIOLOGIST: Janie Olvera MD PREOPERATIVE DIAGNOSIS: Bile peritonitis. POSTOPERATIVE DIAGNOSIS: Bile peritonitis. PROCEDURE PERFORMED: Laparoscopic lysis of adhesions, and washout. FINDINGS: 700 cc of bile. SPECIMENS: Bile for culture. ESTIMATED BLOOD LOSS: 10 cc. INDICATIONS: Dagoberto Jung is a 71-year-old man who underwent a difficult laparoscopic cholecystectomy on June 23, 2017. He had a bile leak. ERCP with stent was placed yesterday. He still had considerable abdominal pain, and so I took him to the operating room for washout. DESCRIPTION OF PROCEDURE: Patient was brought into the operating room and placed supine on the table, and general anesthesia was administered. His abdomen was prepped and draped in the usual sterile fashion. I infiltrated all sites with 0.5% Marcaine prior to making incisions. I removed his previous larissa on the incision that is most left and inferior. I placed a Veress needle and passed the hanging drop test. His abdomen insufflated easily to a pressure of 15 mmHg. I placed the camera with a 5 mm trocar at this place. There were no injuries from Veress needle placement. He had multiple adhesions in his abdomen. I then removed the larissa from the most right inferior trocar and inserted a 5 mm trocar in this area. I explored his abdomen. There was quite a bit of bile above his liver as well as in his pelvis. I suctioned 700 cc of bile. I then noticed a lot of dense adhesions over his liver with bile trapped behind it. I then removed the larissa from the 3rd incision and placed a 5 mm trocar there, and was able to perform suction irrigation with over 7 L of fluid. The fluid returned clear. I then placed a 15 round silicone drain in the most right lateral port and circled this into the gallbladder fossa as well as above the liver bed. Ports were removed under direct vision. The abdomen allowed to desufflate. Drain sutured in place with 3-0 nylon. Larissa applied to the incisions. He was awakened in the operating room, extubated, and transferred to PACU in stable condition. /[id number]/MODL MTDD
--- NOTE | 2017-06-27 15:10 | ASMTCMCOM ---
CM Note CM Note Notes: Pt tx'd back to 1N after going to ICU for bile leak. Pt now on IV ABX. It is unclear if pt will need IV ABX at DC. Pt currently set up with [facility] HC RN and OT. C/M will follow for add'l DC needs. Date Signed: 06/27/2017 03:09 PM Electronically Signed By:Bibi Campo LCSW
[2017-06-27] MEDS: HYDROmorphone HCL/NS/PF 0.4 MG/2 ML SYR IVP PRN ×3 (19:36→21:38)
[2017-06-27] MEDS: MELATONIN 3 MG TAB PO SCH (21:15)
[2017-06-28] MEDS: HYDROmorphone HCL/NS/PF 0.4 MG/2 ML SYR IVP PRN ×8 (00:26→23:23)
--- NOTE | 2017-06-28 00:59 | GCON ---
[f rep st] CONSULTATION INPATIENT INFECTIOUS DISEASE CONSULTATION REFERRING PHYSICIAN: Ivette Escudero MD REASON FOR REFERRAL: Cholecystitis. HISTORY OF PRESENT ILLNESS: Patient is a 71-year-old male, who presented to [facility] on 06/22/2017. The patient was diagnosed with acalculous cholecystitis, and was taken to surg hema on 06/23/2017. A suppurative gallbladder was found. This was removed without complication. How ever, following the surgery, the patient developed some [id number] abdominal tenderness, and ferrer d a probable subcapsular fluid collection on imaging. HIDA scan confirmed a biliary leak. The patie nt had been covered microbiologically with vancomycin, ertapenem, and Levaquin. We are consulted to help drive therapy. Currently, the patient is resting in his hospital bed. He feels tired from all the procedures that he has been through over the last couple of days. No specific complaint. He is afebrile. PAST MEDICAL HISTORY: 1. History of alcoholism. 2. Bipolar disorder. 3. History of factor V Leiden. 4. Status post C1 fracture. 5. History of pulmonary embolism. 6. Hypothyroidism. PAST SURGICAL HISTORY: As above. ANTIBIOTICS: 1. Vancomycin. 2. Ertapenem. ALLERGIES: Patient states he is allergic to penicillin and sulfa. Specifically, the patient says hi s penicillin allergy was told to him by his mother, because at age 9 he received an injection of peni cillin by his primary care doctor and he fell down. SOCIAL HISTORY: The patient has a remote history of alcohol use and abuse. He has been without alco hol for year. No tobacco use. He is . FAMILY HISTORY: Reviewed, but noncontributory. REVIEW OF SYSTEMS: Other than that detailed above in the History of Present Illness, comprehensive 1 0-system review is negative. PHYSICAL EXAMINATION: VITAL SIGNS: Temperature maximum is 37.4, temperature current is 37.4; heart rate is 81; respiratory rate is 18; blood pressure is 144/74. GENERAL: The patient is a well-formed , well-nourished, older male, in no acute distress. He is mildly toxic in appearance. He is alert a nd oriented x3. He is very pleasant in demeanor. HEENT: Normocephalic for age. Atraumatic. No sc leral icterus. No oral lesion or drainage from the nares. Eyes: Lids and conjunctivae are within normal limits. Pupils are equal and round bilaterally. NECK : Supple. No meningismus. LUNGS: Clear to auscultation bilaterally, with good effort. HEART: Re gular rate and rhythm. No significant peripheral edema. ABDOMEN: Mildly distended. Tender postope ratively. No masses. SKIN: Warm and dry to the touch. No rash or lesion noted. MUSCULOSKELETAL: No muscle tenderness is noted. No joint line effusion or arthritis is seen. NEURO: Cranial nerves 2 through 12 seem to be intact. Peripheral sensation seems intact in extremities. LABORATORY DATA: Patient has a CBC dated 06/27/2017 that shows a white blood cell count of 12.1, hem oglobin of 10.4, hematocrit of 29.9, platelet count of 226. Differential is mildly left-shifted with 77% segmented neutrophils. Serum chemistries on 06/27/2017 show sodium of 141, potassium 4.1, chlor sundar of 107, bicarbonate of 23, BUN of 18, and creatinine of 0.5. AST is mildly elevated at 83, ALT i s normal at 59, alkaline phosphatase is 169, total protein 4.5, albumin 2.3. MICROBIOLOGIC DATA: Patient has operative gallbladder culture on 06/23/2017, which is growing Strept ococcus parasanguis. This isolate is cervantes sensitive. Blood cultures dated 06/25/2017 are no growth t o date. The patient had an abdominal fluid culture obtained on 06/27/2017. Gram stain shows no orga nisms. Cultures pending. ASSESSMENT: Purulent cholecystitis, acalculous in nature. Culture show Streptococcus as a pathogen. The patient has penicillin allergy. Story is quite suspect. This does not with history sound like a legitimate allergy. He tolerated the carbapenem. We will go ahead and discontinue both the vanco mycin and ertapenem, and start ceftriaxone 2 g daily. Duration should not be incredibly long, 7 days should be reasonable from final procedure. PLAN: 1. Discontinue both vancomycin and ertapenem. 2. Start ceftriaxone 2 g IV q.24 hours. 3. Duration for 7 days starting at the final procedure of drainage. /[id number]/MODL
[2017-06-28] MEDS: NS 1,000 ML IV SCH (04:44)
[2017-06-28 04:59] LABS: % IMMATURE GRANULYOCYTES 1.7 % (0.0-1.1); ABSOLUTE IMMATURE GRANULOCYTES 0.15 10^3/uL (0.00-0.10); ADD DIFF? NO; ADD MORPH? NO; ADD SCAN? NO; ATYPICAL LYMPHOCYTE FLAG 0 (0-99); FRAGMENT RBC FLAG 0 (0-99); HEMATOCRIT 27.5 % (40.0-51.0); HEMOGLOBIN 9.4 g/dL (13.7-17.5); LEFT SHIFT FLG 10 (0-99); LIPEMIA HEMOLYSIS FLAG 90 (0-99); MEAN CELL HEMOGLOBIN 31.4 pg (27.9-34.1); MEAN CELL HEMOGLOBIN CONCENTR. 34.2 g/dL (32.4-36.7); MEAN PLATELET VOLUME 10.4 fL (8.7-11.7); PLATELET CLUMPS FLAG 10 (0-99); PLATELET COUNT 246 10^3/uL (150-400); RED BLOOD CELL COUNT 2.99 10^6/uL (4.40-6.38); RED CELL DISTRIBUTION WIDTH 13.9 % (11.5-15.2)
[2017-06-28 05:14] LABS: CHLORIDE 107 mEq/L (97-110); POTASSIUM 3.5 mEq/L (3.5-5.2); SODIUM 140 mEq/L (134-144)
[2017-06-28 05:15] LABS: ANION GAP 8 mEq/L (8-16); CALCIUM 7.9 mg/dL (8.5-10.4); CARBON DIOXIDE 25 mEq/l (22-31); CREATININE 0.7 mg/dL (0.7-1.3); GLOMERULAR FILTRATION RATE > 60; GLUCOSE 85 mg/dL (70-100)
[2017-06-28] MEDS: QUEtiapine FUMARATE 50 MG TAB PO SCH (08:01)
[2017-06-28] MEDS: ATORVASTATIN CALCIUM 20 MG TAB PO SCH (08:01)
[2017-06-28] MEDS: ESCITALOPRAM OXALATE 10 MG TAB PO SCH (08:03)
[2017-06-28] MEDS: GABAPENTIN 400 MG CAP PO SCH ×2 (08:03→20:31)
[2017-06-28] MEDS: LEVOTHYROXINE 125 MCG TAB PO SCH (08:03)
[2017-06-28] MEDS: DIVALPROEX ER 500 MG TAB PO SCH ×2 (08:03→20:32)
[2017-06-28] MEDS: ENOXAPARIN 40 MG/0.4 ML SYR SC SCH (08:04)
[2017-06-28] MEDS: cefTRIAXone 2 GM in D5W 50 ML IV SCH (08:04)
--- NOTE | 2017-06-28 08:24 | SOAPPROG ---
SOAP Progress Note Assessment/Plan: Assessment: s/p lap felipe on 06/23. Bile leak on HIDA ERCP with stent placed (need to remove stent in 4-6 weeks) [address] Bashir S/P Laparoscopy with wash out. Drain no longer bilious Advance diet S:Slept some last night. Leaking around USMAN drain. Passing flatus. Did not like clears - too salty O: Lying in bed Incisions cdi Less distended today BS present Staple applied by USMAN site USMAN serosang today Plan: 06/25/17 10:01 06/26/17 09:12 06/27/17 07:27 06/28/17 08:23 Objective: Vital Signs Temp Pulse Resp BP Pulse Ox 37.1 C 69 16 145/74 H 93 06/28/17 07:24 06/28/17 07:24 06/28/17 07:24 06/28/17 07:24 06/28/17 07:24 Microbiology 06/27/17 08:40 Gram Stain - Final Abdomen - Other 06/25/17 16:39 Urine Culture - Final Urine,Clean Catch Laboratory Results 06/28/17 04:39 06/28/17 04:39 06/27/17 06/28/17 06/29/17 05:59 05:59 05:59 Intake Total 4173 800 937.5 Output Total 1500 870 Balance 2673 -77 937.5 ICD10 Worksheet Patient Problems: Problems Problem Status Onset Acalculous cholecystitis Acute Abscess of lung with pneumonia Acute Alcoholic intoxication Acute C1 cervical fracture Acute Chronic Disease Mgmt/Transitional Care Acute Fall Acute Nausea & vomiting Acute Pneumonia Acute Pneumothorax Acute Ribs, multiple fractures Acute Scapula fracture Acute Syncope and collapse Acute
--- NOTE | 2017-06-28 10:15 | SOAPPROG ---
SOAP Progress Note Assessment/Plan: Assessment: Prior Lap Trudi with bile leak. Had biliary stent placed 10 Fr, 7 cm stent on 06/26. Had surgery on 06/27 with peritoneal wash and drain placement. Very little output from external drain. Plan: 1. EGD as out patient for stent removal in 4 -6 weeks. 2. Will sign off, please call with any further questions. 06/28/17 10:12 Subjective: CC: Lap [place] and Bile leak s/p ERCP with stent placement 06/26 and surgery with drain. Objective: Vital Signs Temp Pulse Resp BP Pulse Ox 37.1 C 69 16 145/74 H 93 06/28/17 07:24 06/28/17 07:24 06/28/17 07:24 06/28/17 07:24 06/28/17 07:24 Microbiology 06/27/17 08:40 Gram Stain - Final Abdomen - Other 06/25/17 16:39 Urine Culture - Final Urine,Clean Catch Laboratory Results 06/28/17 04:39 06/28/17 04:39 06/27/17 06/28/17 06/29/17 05:59 05:59 05:59 Intake Total 4173 800 937.5 Output Total 1500 870 Balance 2673 -70 937.5 Generic Name Dose Route Start Last Admin Trade Name Frerene PRN Reason Stop Dose Admin Acetaminophen 650 mg 06/22/17 17:19 06/25/17 10:08 Tylenol PO 12/19/17 17:18 650 mg Q4HRS PRN Administration Pain, Mild/Fever, Can Take PO Alteplase, Recombinant 2 mg 06/25/17 13:22 Cathflo Activase IVP 12/22/17 13:21 PRN PRN Per PICC line policy Atorvastatin Calcium 20 mg 06/23/17 09:00 06/28/17 08:01 Lipitor PO 12/20/17 08:59 20 mg DAILY BYRON Administration Divalproex Sodium 500 mg 06/23/17 09:00 06/28/17 08:03 Depakote Er PO 12/20/17 08:59 500 mg DAILY BYRON Administration Divalproex Sodium 1,000 mg 06/22/17 21:00 06/27/17 21:16 Depakote Er PO 12/19/17 20:59 1,000 mg HS BYRON Administration Enoxaparin Sodium 40 mg 06/23/17 09:00 06/28/17 08:04 Lovenox SC 12/20/17 08:59 40 mg DAILY BYRON Administration Escitalopram Oxalate 5 mg 06/23/17 09:00 06/28/17 08:03 Lexapro PO 12/20/17 08:59 5 mg DAILY BYRON Administration Gabapentin 400 mg 06/22/17 21:00 06/28/17 08:03 Neurontin PO 12/19/17 20:59 400 mg BID BYRON Administration Hydromorphone/Sodium Chloride 0.2 - 0.4 mg 06/27/17 09:39 06/28/17 08:17 Hydromorphone IVP 07/07/17 09:38 0.4 mg Q1H PRN Administration Pain, Severe Unable to Take PO Sodium Chloride 1,000 mls @ 75 mls/hr 06/25/17 14:45 06/28/17 04:44 Ns IV 12/22/17 14:44 1,000 mls CONT BYRON Administration Ceftriaxone Sodium 2 gm/ 50 mls @ 100 mls/hr 06/28/17 09:00 06/28/17 08:04 Dextrose IV 07/28/17 08:59 50 mls DAILY BYRON Administration Protocol Levothyroxine Sodium 125 mcg 06/23/17 06:00 06/28/17 08:03 Synthroid PO 12/20/17 05:59 125 mcg DAILY06 BYRON Administration Melatonin 3 mg 06/22/17 21:00 06/27/17 21:15 Melatonin PO 12/19/17 20:59 3 mg HS BYRON Administration Modafinil 200 mg 06/24/17 09:45 06/27/17 08:26 Provigil PO 12/21/17 09:44 Not Given DAILY BYRON Ondansetron HCl 4 mg 06/22/17 17:19 Zofran IVP 12/19/17 17:18 Q4HRS PRN Nausea/Vomiting, Can't Take PO Ondansetron HCl 4 mg 06/22/17 17:19 Zofran Odt PO 12/19/17 17:18 Q4HRS PRN Nausea/Vomiting, Use 1st Oxycodone HCl 10 - 15 mg 06/24/17 15:17 06/25/17 10:46 Oxycodone Ir PO 07/04/17 15:16 10 mg Q4HRS PRN Administration Pain, Severe Able to Take PO Promethazine HCl 6.25 - 12.5 mg 06/22/17 17:19 06/26/17 12:32 Phenergan IVP 12/19/17 17:18 6.25 mg Q6HRS PRN Administration Nausea/Vomiting, Use 2nd Quetiapine Fumarate 150 mg 06/23/17 09:00 06/28/17 08:01 Seroquel PO 12/20/17 08:59 150 mg DAILY BYRON Administration Zolpidem Tartrate 5 mg 06/27/17 07:28 Ambien PO 12/24/17 07:27 HS PRN Sleep/Insomnia Discontinued Medications Generic Name Dose Route Start Last Admin Trade Name Freq PRN Reason Stop Dose Admin Albuterol 3 ml 06/23/17 06:00 Proventil Neb 06/23/17 07:00 Q10M PRN PACU, Wheezing Albuterol 3 ml 06/27/17 08:50 Proventil Neb 06/27/17 09:50 Q10M PRN PACU, Wheezing Atenolol 25 mg 06/22/17 21:00 Tenormin PO 12/19/17 20:59 BID BYRON Atenolol 25 mg 06/22/17 21:00 06/25/17 10:16 Tenormin PO 12/19/17 20:59 Not Given BID [facility] Atorvastatin Calcium 20 mg 06/23/17 09:00 Lipitor PO 12/20/17 08:59 DAILY [facility] Bupivacaine HCl Confirm 06/23/17 05:47 06/23/17 09:44 Sensorcaine 0.5% Vial Administered 06/23/17 05:48 Not Given Dose 30 ml .ROUTE .STK-MED ONE Bupivacaine HCl Confirm 06/27/17 07:17 06/27/17 08:35 Sensorcaine 0.5% Vial Administered 06/27/17 07:18 18 ml Dose Administration 30 ml .ROUTE .STK-MED ONE Bupivacaine HCl/Epinephrine Bitart Confirm 06/27/17 07:13 06/27/17 08:57 Bupivacaine/Epi Administered 06/27/17 07:14 Not Given Dose 30 ml .ROUTE .STK-MED ONE Cefazolin Sodium Confirm 06/23/17 05:48 06/23/17 06:48 Ancef Syringe Administered 06/23/17 05:49 1 gm Dose Administration 1 gm .ROUTE .STK-MED ONE Dexamethasone 4 mg 06/27/17 08:50 Decadron Injection IVP 06/27/17 09:50 ONCE PRN PACU, Nausea/Vomiting Divalproex Sodium 500 mg 06/23/17 09:00 Depakote Er PO 12/20/17 08:59 DAILY BYRON Divalproex Sodium 1,000 mg 06/22/17 21:00 Depakote Er PO 12/19/17 20:59 HS [facility] Enoxaparin Sodium 40 mg 06/23/17 09:00 Lovenox SC 12/20/17 08:59 DAILY [facility] Ertapenem 1 gm 06/22/17 16:19 06/22/17 16:50 Invanz IVP 06/22/17 16:20 1 gm EDNOW ONE Administration Protocol Ertapenem 1 gm 06/22/17 23:00 06/22/17 23:13 Invanz IVP 07/22/17 22:59 Not Given DAILY BYRON Ertapenem 1 gm 06/23/17 09:00 06/27/17 08:55 Invanz IVP 07/23/17 08:59 Not Given DAILY [facility] Fentanyl 25 - 100 mcg 06/23/17 06:00 Sublimaze IVP 06/23/17 07:00 Q5M PRN PACU, IMMEDIATE Pain control Fentanyl Confirm 06/23/17 06:02 Sublimaze Administered 06/23/17 06:03 Dose 100 mcg .ROUTE .STK-MED ONE Fentanyl Confirm 06/23/17 06:58 Sublimaze Administered 06/23/17 06:59 Dose 100 mcg .ROUTE .STK-MED ONE Fentanyl 25 - 100 mcg 06/26/17 11:25 Sublimaze IVP 06/26/17 12:25 Q5M PRN PACU, IMMEDIATE Pain control Fentanyl Confirm 06/27/17 08:04 Sublimaze Administered 06/27/17 08:05 Dose 100 mcg .ROUTE .STK-MED ONE Fentanyl 25 - 100 mcg 06/27/17 08:50 06/27/17 09:55 Sublimaze IVP 06/27/17 09:50 25 mcg Q5M PRN Administration PACU, IMMEDIATE Pain control Fentanyl Confirm 06/27/17 09:51 Sublimaze Administered 06/27/17 09:52 Dose 100 mcg .ROUTE .STK-MED ONE Gabapentin 400 mg 06/22/17 21:00 Neurontin PO 12/19/17 20:59 BID BYRON Glucagon Confirm 06/26/17 09:18 Glucagon Administered 06/26/17 09:19 Dose 1 mg .ROUTE .STK-MED ONE Heparin Sodium (Porcine) Confirm 06/23/17 05:47 06/23/17 06:49 Heparin Sodium Administered 06/23/17 05:48 2,000 unit Dose Administration 2,000 unit .ROUTE .STK-MED ONE Hydromorphone HCl 0.4 - 0.8 mg 06/22/17 22:49 06/24/17 06:18 Dilaudid IVP 07/02/17 22:48 0.8 mg Q2 PRN Administration Pain, Severe Hydromorphone HCl 0.1 - 0.4 mg 06/23/17 06:00 Dilaudid IVP 06/23/17 07:00 Q10M PRN PACU, PAIN Hydromorphone HCl 0 mg 06/26/17 09:08 06/27/17 06:18 Dilaudid Digital Content Marketing Manager IV 07/06/17 09:07 6 mg PRN PRN Administration Pain, Severe Unable to Take PO Protocol Hydromorphone HCl Confirm 06/26/17 12:08 Dilaudid Administered 06/26/17 12:09 Dose 1 mg .ROUTE .STK-MED ONE Hydromorphone HCl 0.4 mg 06/26/17 12:05 06/26/17 12:05 Dilaudid IVP 06/26/17 12:06 0.4 mg ONCE ONE Administration Hydromorphone HCl Confirm 06/27/17 09:50 Dilaudid Administered 06/27/17 09:51 Dose 1 mg .ROUTE .STK-MED ONE Hydromorphone HCl 0.1 - 0.4 mg 06/27/17 10:10 06/27/17 10:10 Dilaudid IVP 06/27/17 11:11 0.1 mg Q10M PRN Administration PACU, PAIN Hydromorphone/Sodium Chloride 0.2 - 0.4 mg 06/24/17 18:50 06/26/17 04:34 Hydromorphone IVP 07/04/17 18:49 0.4 mg Q2HRS PRN Administration Pain, Severe Unable to Take PO Hydromorphone/Sodium Chloride 0.4 - 0.8 mg 06/26/17 05:31 06/26/17 08:12 Hydromorphone IVP 07/04/17 18:49 0.8 mg Q2HRS PRN Administration Pain, Severe Unable to Take PO Sodium Chloride 1,000 mls @ 0 mls/hr 06/22/17 14:38 06/22/17 14:54 Ns IV 06/22/17 14:39 1,000 mls EDNOW ONE Administration Protocol Wide Open Lidocaine HCl 100 mg/ Sodium 110 mls @ 600 mls/hr 06/22/17 14:38 06/22/17 15: 01 Chloride IV 06/22/17 14:48 110 mls EDNOW ONE Administration Sodium Chloride 1,000 mls @ 150 mls/hr 06/22/17 17:30 06/22/17 18:34 Ns IV 12/19/17 17:29 1,000 mls CONT BYRON Administration Lactated Ringer's 1,000 mls @ 0 mls/hr 06/23/17 05:51 06/23/17 09:45 Lr IV 06/23/17 05:52 Not Given ONCE ONE KVO Potassium Chloride/Dextrose/Sod Cl 1,000 mls @ 100 mls/hr 06/23/17 14:15 06:26 D5w 1/2 Ns W/ 20 Kcl/L IV 12/20/17 14:14 1,000 mls CONT BYRON Administration Sodium Chloride 1,000 mls @ 75 mls/hr 06/25/17 08:00 06/25/17 10:46 Ns IV 12/22/17 07:59 1,000 mls CONT BYRON Administration Sodium Chloride 500 mls @ 1,500 mls/hr 06/25/17 09:03 06/25/17 10:06 Ns IV 06/25/17 09:22 500 mls ONCE ONE Administration Sodium Chloride 1,000 mls @ 3,000 mls/hr 06/25/17 13:09 06/25/17 13:14 Ns IV 06/25/17 13:28 1,000 mls ONCE ONE Administration Norepinephrine/Sodium Chloride 500 mls @ 0 mls/hr 06/25/17 13:30 Norepinephrine 8 Mcg/Ml (Premix) IV 12/22/17 13:29 CONT BYRON Protocol Titrate Levofloxacin/Dextrose 150 mls @ 100 mls/hr 06/25/17 14:00 06/26/17 09:34 Levaquin 750 Mg (Premix) IV 07/25/17 13:59 150 mls DAILY BYRON Administration Protocol Vancomycin HCl 1.25 gm/ 250 mls @ 166.667 mls/hr 06/25/17 15:00 06/25/17 14: 47 Dextrose IV 07/25/17 14:59 250 mls Q24H BYRON Administration Vancomycin HCl 750 mg/ 150 mls @ 150 mls/hr 06/26/17 10:00 06/27/17 22:56 Dextrose IV 07/26/17 09:59 150 mls Q12H BYRON Administration Lactated Ringer's 500 mls @ 0 mls/hr 06/26/17 11:25 Lr IV 06/26/17 12:26 PRN PRN PACU, Nausea/Vomiting Post-Op Wide Open Lactated Ringer's 500 mls @ 0 mls/hr 06/27/17 08:50 Lr IV 06/27/17 09:50 PRN PRN PACU, Nausea/Vomiting Post-Op Wide Open Iopamidol Confirm 06/25/17 13:45 Isovue-300 Administered 06/25/17 13:46 Dose 100 ml .ROUTE .STK-MED ONE Iothalamate Meglumine Confirm 06/26/17 09:11 Conray Administered 06/26/17 09:12 Dose 50 ml IV .STK-MED ONE Ketorolac Tromethamine 30 mg 06/22/17 17:15 06/22/17 18:06 Toradol IVP 06/22/17 17:16 30 mg EDNOW ONE Administration Ketorolac Tromethamine 30 mg 06/22/17 17:18 Toradol IVP 06/27/17 17:17 Q6HRS PRN Pain, Inflammatory Ketorolac Tromethamine 30 mg 06/22/17 17:47 06/23/17 09:54 Toradol IVP 06/27/17 17:17 30 mg Q6HRS PRN Administration Pain, Inflammatory Ketorolac Tromethamine 15 mg 06/23/17 18:00 06/25/17 13:14 Toradol IVP 06/28/17 17:59 Not Given Q6 [facility] Levothyroxine Sodium 125 mcg 06/23/17 06:00 Synthroid PO 12/20/17 05:59 DAILY06 BYRON Lidocaine HCl Confirm 06/27/17 08:33 Xylocaine-Mpf 2% Vial Administered 06/27/17 08:34 Dose 5 ml .ROUTE .STK-MED ONE Losartan Potassium 100 mg 06/23/17 09:00 06/24/17 08:37 Cozaar PO 12/20/17 08:59 100 mg DAILY BYRON Administration Melatonin 3 mg 06/22/17 21:00 Melatonin PO 12/19/17 20:59 HS BYRON Midazolam HCl 2 mg 06/23/17 05:58 06/23/17 06:02 Versed IVP 06/23/17 05:59 2 mg ONCALL ONE Administration Midazolam HCl Confirm 06/23/17 06:01 Versed Administered 06/23/17 06:02 Dose 2 mg .ROUTE .STK-MED ONE Midazolam HCl Confirm 06/27/17 08:04 Versed Administered 06/27/17 08:05 Dose 2 mg .ROUTE .STK-MED ONE Miscellaneous Confirm 06/25/17 15:03 Madeline-Ease 2 Gm Administered 06/25/17 15:04 Dose 2 sudarshan TP .STK-MED ONE Miscellaneous Medication 5 mg 06/23/17 09:00 Escitalopram Oxalate [Lexapro] PO 12/20/17 08:59 DAILY BYRON Miscellaneous Medication 100 mg 06/23/17 09:00 Losartan Potassium [Losartan Potassium] PO 12/20/17 08:59 DAILY BYRON Miscellaneous Medication 200 mg 06/23/17 09:00 Modafinil [Provigil] PO 12/20/17 08:59 DAILY BYRON Miscellaneous Medication 200 mg 06/23/17 09:00 06/24/17 08:47 Modafinil [Provigil] PO 12/20/17 08:59 Not Given DAILY BYRON Morphine Sulfate 1 - 4 mg 06/26/17 11:25 06/26/17 13:10 Morphine IVP 06/26/17 12:25 2 mg Q10M PRN Administration PACU, PAIN Morphine Sulfate Confirm 06/26/17 12:52 Morphine Administered 06/26/17 12:53 Dose 4 mg .ROUTE .STK-MED ONE Morphine Sulfate 1 - 4 mg 06/27/17 08:50 Morphine IVP 06/27/17 09:50 Q10M PRN PACU, PAIN Naloxone HCl 0.1 mg 06/23/17 06:00 Narcan IVP 06/23/17 07:00 Q2M PRN PACU Resp Rate <10/min Naloxone HCl 0 mg 06/26/17 09:08 Narcan IVP 12/23/17 09:07 PRN PRN Respiratory depression Protocol Naloxone HCl 0.1 mg 06/26/17 11:25 Narcan IVP 06/26/17 12:25 Q2M PRN PACU Resp Rate <10/min Naloxone HCl 0.1 mg 06/27/17 10:10 Narcan IVP 06/27/17 11:10 Q2M PRN PACU Resp Rate <10/min Ondansetron HCl 4 mg 06/22/17 14:38 06/22/17 14:55 Zofran IVP 06/22/17 14:39 4 mg EDNOW ONE Administration Ondansetron HCl Confirm 06/27/17 08:33 Zofran Administered 06/27/17 08:34 Dose 4 mg .ROUTE .STK-MED ONE Ondansetron HCl 2 - 4 mg 06/27/17 08:50 Zofran IVP 06/27/17 09:50 Q10M PRN PACU, Nausea/Vomiting Oxycodone/Acetaminophen 1 - 2 tab 06/23/17 14:11 06/24/17 08:32 Percocet 5/325 PO 07/03/17 14:10 2 tab Q4 PRN Administration Pain, Severe Able to Take PO Phenylephrine HCl Confirm 06/27/17 08:33 Neosynephrine Administered 06/27/17 08:34 Dose 1,000 mcg .ROUTE .STK-MED ONE Promethazine HCl 6.25 - 12.5 mg 06/26/17 11:25 Phenergan IVP 06/26/17 12:26 Q5M PRN PACUNausea/Vomiting, Unable PO Propofol Confirm 06/23/17 06:06 Diprivan 10 Mg/Ml (Premix) Administered 06/23/17 06:07 Dose 500 mg IV .STK-MED ONE Propofol Confirm 06/27/17 08:04 Diprivan 10 Mg/Ml (Premix) Administered 06/27/17 08:05 Dose 500 mg IV .STK-MED ONE Quetiapine Fumarate 150 mg 06/23/17 09:00 Seroquel PO 12/20/17 08:59 DAILY [facility] Rocuronium [place] Confirm 06/27/17 08:33 Zemuron Administered 06/27/17 08:34 Dose 50 mg .ROUTE .STK-MED ONE Rocuronium [place] Confirm 06/27/17 09:10 Zemuron Administered 06/27/17 09:11 Dose 50 mg .ROUTE .STK-MED ONE Sugammadex Sodium Confirm 06/23/17 07:12 Bridion Administered 06/23/17 07:13 Dose 200 mg IVP .STK-MED ONE Sugammadex Sodium Confirm 06/27/17 08:33 Bridion Administered 06/27/17 08:34 Dose 200 mg IVP .STK-MED ONE Vancomycin HCl 1 each 06/25/17 14:00 Vancomycin Pharmacy To Dose, 15-20 Mcg/Ml [facility] [place] 12/22/17 13:59 AD [facility] Protocol Physical Exam - Physical Exam General Appearance: no apparent distress, other (Sleeping) Respiratory: lungs clear Cardiac/Chest: regular rate, rhythm Abdomen: normal bowel sounds, non-tender, soft, other (mininal drainage from USMAN) Skin: normal color, warm/dry ICD10 Worksheet Patient Problems: Problems Problem Status Onset Acalculous cholecystitis Acute Abscess of lung with pneumonia Acute Alcoholic intoxication Acute C1 cervical fracture Acute Chronic Disease Mgmt/Transitional Care Acute Fall Acute Nausea & vomiting Acute Pneumonia Acute Pneumothorax Acute Ribs, multiple fractures Acute Scapula fracture Acute Syncope and collapse Acute
--- NOTE | 2017-06-28 11:02 | PCMIDPN ---
Assessment/Plan: Assessment: Acalculous cholecystitis secondary to Streptococcus parasanguinous. This was complicated by a bilious leak. He has had this repaired with stenting. Currently recovering from his multiple procedures. Covering with ceftriaxone monotherapy. Doing very well and tolerating this medication without problem. Plan: 1. Continue monotherapy with ceftriaxone for probably 7 days post drainage. 2. Follow clinical course. 06/28/17 19:25 Subjective: Patient is resting in his hospital bed. Quite tired after all of his procedures in illness. No particular new complaints. No rash or itching. Objective: Ceftriaxone # 1 Vital Signs Temp Pulse Resp BP Pulse Ox 37.1 C 69 16 145/74 H 93 06/28/17 07:24 06/28/17 07:24 06/28/17 07:24 06/28/17 07:24 06/28/17 07:24 Microbiology 06/27/17 08:40 Gram Stain - Final Abdomen - Other 06/25/17 16:39 Urine Culture - Final Urine,Clean Catch Laboratory Results 06/28/17 04:39 06/28/17 04:39 06/27/17 06/28/17 06/29/17 05:59 05:59 05:59 Intake Total 4173 800 937.5 Output Total 1500 870 Balance 2673 -70 937.5 - Physical Exam General Appearance: WD/WN, alert, no apparent distress, non-toxic Respiratory: lungs clear, normal breath sounds, No respiratory distress Cardiac/Chest: regular rate, rhythm, No tachycardia Abdomen: soft, distended, No non-tender, No mass Skin: normal color, warm/dry, No rash Neuro/Psych: alert, normal mood/affect, oriented x 3 ICD10 Worksheet Patient Problems: Problems Problem Status Onset Acalculous cholecystitis Acute Abscess of lung with pneumonia Acute Alcoholic intoxication Acute C1 cervical fracture Acute Chronic Disease Mgmt/Transitional Care Acute Fall Acute Nausea & vomiting Acute Pneumonia Acute Pneumothorax Acute Ribs, multiple fractures Acute Scapula fracture Acute Syncope and collapse Acute
[2017-06-28] MEDS: MODAFINIL 100 MG TAB PO SCH (11:14)
[2017-06-28] MEDS ORDERED: FUROSEMIDE 20 MG/2 ML VIAL IVP ONE (11:58)
--- NOTE | 2017-06-28 12:04 | HOSPPROG ---
Hospitalist Progress Note Assessment/Plan: 71 yo male admitted with acute cholecystitis and s/p cholecystectomy on 06/23. E /O sepsis on 06/25 and abx broadened. Bile leak and bile peritonitis diagnosed. S/P ERCP with sphincterotomy and stent placement 06/26. S/p abdominal washout for bile peritonitis 06/27 BP's better. Has not required pressors treated with Invanz since 06/25. Levaquin and Vancomycin added during acute decompensation. Changed to Rocephin alone 06/27 per cx's CXR, personally reviewed, bilateral pleural effusions I: -Sepsis, bile peritonitis -Bile Leak, recent cholecystis on 06/23 -volume overload and pleural effusions -Acute Encephalopathy: resolved, he is back to baseline. 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 Intermittent cough. Abd pain has improved. tolerating a diet. Denies CP. Denies SOB Objective: Vital Signs Temp Pulse Resp BP Pulse Ox 37.1 C 69 16 145/74 H 93 06/28/17 07:24 06/28/17 07:24 06/28/17 07:24 06/28/17 07:24 06/28/17 07:24 Microbiology 06/27/17 08:40 Gram Stain - Final Abdomen - Other 06/25/17 16:39 Urine Culture - Final Urine,Clean Catch Laboratory Results 06/28/17 04:39 06/28/17 04:39 06/27/17 06/28/17 06/29/17 05:59 05:59 05:59 Intake Total 4173 800 937.5 Output Total 1500 870 Balance 2673 -70 937.5 - Physical Exam Constitutional: no apparent distress Eyes: PERRL, EOMI Ears, Nose, Mouth, Throat: moist mucous membranes, hearing normal Cardiovascular: regular rate and rhythym, edema (UE) Respiratory: reduced air movement, rhonchi Gastrointestinal: normoactive bowel sounds, tenderness Skin: warm Psychiatric: interacting appropriately, not anxious, not encephalopathic ICD10 Worksheet Patient Problems: Problems Problem Status Onset Acalculous cholecystitis Acute Abscess of lung with pneumonia Acute Alcoholic intoxication Acute C1 cervical fracture Acute Chronic Disease Mgmt/Transitional Care Acute Fall Acute Nausea & vomiting Acute Pneumonia Acute Pneumothorax Acute Ribs, multiple fractures Acute Scapula fracture Acute Syncope and collapse Acute
[2017-06-28] MEDS: LOSARTAN POTASSIUM 50 MG TAB PO SCH (12:26)
[2017-06-28] MEDS: MELATONIN 3 MG TAB PO SCH (20:31)
[2017-06-29] MEDS: HYDROmorphone HCL/NS/PF 0.4 MG/2 ML SYR IVP PRN ×2 (02:51→07:08)
[2017-06-29] MEDS: LEVOTHYROXINE 125 MCG TAB PO SCH (05:28)
[2017-06-29] MEDS: ACETAMINOPHEN 325 MG TAB PO PRN (05:31)
[2017-06-29] MEDS: LOSARTAN POTASSIUM 50 MG TAB PO SCH (08:49)
[2017-06-29] MEDS: ESCITALOPRAM OXALATE 10 MG TAB PO SCH (08:49)
[2017-06-29] MEDS: GABAPENTIN 400 MG CAP PO SCH ×2 (08:49→20:02)
[2017-06-29] MEDS: QUEtiapine FUMARATE 50 MG TAB PO SCH ×2 (08:50→20:03)
[2017-06-29] MEDS: ATORVASTATIN CALCIUM 20 MG TAB PO SCH (08:51)
[2017-06-29] MEDS: oxyCODONE IR 5 MG TAB PO PRN ×3 (08:51→20:01)
[2017-06-29] MEDS: DIVALPROEX ER 500 MG TAB PO SCH ×2 (08:51→20:03)
[2017-06-29] MEDS: cefTRIAXone 2 GM in D5W 50 ML IV SCH (08:52)
[2017-06-29] MEDS: ENOXAPARIN 40 MG/0.4 ML SYR SC SCH (08:55)
--- NOTE | 2017-06-29 09:35 | SOAPPROG ---
SOAP Progress Note Assessment/Plan: Assessment/Plan: 71 Y M s/p lap felipe for acute necrotic cholecystitis. s/p ERCP and stent placement for bile leak. s/p washout and WESLEY for bile peritonitis. Seen with Dr. Mccullough this am. Seems to be doing well this am. Low fat diet. Monitor labs. Continue USMAN drainage. Dispo: possibly in next 1-2 days if eating and doing well. Suspect we can remove drain prior to d/c. S: feeling better. passing gas. no nausea. had a yogurt in the last few days. O: alert, nad no jaundice ctab anteriorly rrr abd soft, +BS, inc cdi, drain nonbilious, serosanguinous. 06/29/17 09:32 Objective: Vital Signs Temp Pulse Resp BP Pulse Ox 37.2 C 60 16 139/71 H 94 06/29/17 08:47 06/29/17 08:47 06/29/17 08:47 06/29/17 08:47 06/29/17 08:47 Microbiology 06/27/17 08:40 Gram Stain - Final Abdomen - Other Laboratory Results 06/28/17 04:39 06/28/17 04:39 06/28/17 06/29/17 06/30/17 05:59 05:59 05:59 Intake Total 800 1512.5 Output Total 870 1715 Balance -70 -202.5 ICD10 Worksheet Patient Problems: Problems Problem Status Onset Acalculous cholecystitis Acute Abscess of lung with pneumonia Acute Alcoholic intoxication Acute C1 cervical fracture Acute Chronic Disease Mgmt/Transitional Care Acute Fall Acute Nausea & vomiting Acute Pneumonia Acute Pneumothorax Acute Ribs, multiple fractures Acute Scapula fracture Acute Syncope and collapse Acute
--- NOTE | 2017-06-29 10:21 | HOSPPROG ---
Hospitalist Progress Note Assessment/Plan: 71 yo male new to my care 06/29/17 admitted with acute cholecystitis and s/p cholecystectomy on 06/23. E/O sepsis on 06/25 and abx broadened. Bile leak and bile peritonitis diagnosed. S/P ERCP with sphincterotomy and stent placement . S/p abdominal washout for bile peritonitis 06/27 A: -Sepsis, bile peritonitis -Bile Leak, recent cholecystis on 06/23 -volume overload and pleural effusions -Acute Encephalopathy: resolved, he is back to baseline. 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 pt [facility] and insists on DC home. Will discuss with case management Subjective: not eating much due ot poor appetite. no other acute complaints Objective: Vital Signs Temp Pulse Resp BP Pulse Ox 37.2 C 60 16 139/71 H 94 06/29/17 08:47 06/29/17 08:47 06/29/17 08:47 06/29/17 08:47 06/29/17 08:47 Microbiology 06/27/17 08:40 Gram Stain - Final Abdomen - Other Laboratory Results 06/28/17 04:39 06/28/17 04:39 06/28/17 06/29/17 06/30/17 05:59 05:59 05:59 Intake Total 800 1512.5 Output Total 870 1715 Balance -70 -202.5 - Physical Exam Constitutional: no apparent distress, appears nourished, not in pain Cardiovascular: regular rate and rhythym, no murmur, rub, or gallop Respiratory: no respiratory distress, no rales or rhonchi, clear to auscultation Gastrointestinal: normoactive bowel sounds, soft, non-tender abdomen, no palpable masses, other (castro drain in place; wounds closed with clean dry dressing intact), No guarding, No rebound ICD10 Worksheet Patient Problems: Problems Problem Status Onset Syncope and collapse Acute Pneumonia Acute Abscess of lung with pneumonia Acute Alcoholic intoxication Acute C1 cervical fracture Acute Chronic Disease [facility] Acute Fall Acute Ribs, multiple fractures Acute Pneumothorax Acute Scapula fracture Acute Nausea & vomiting Acute Acalculous cholecystitis Acute
[2017-06-29] MEDS: MODAFINIL 100 MG TAB PO SCH (12:08)
--- NOTE | 2017-06-29 16:25 | ASMTCMCOM ---
CM Note CM Note Notes: Spoke with OT today who said that therapies had previously felt patient would need Skilled nursigng facility on discharge but are now recommending home with Home care. [facility] [employer] rep<PT and OT will follow. Date Signed: 06/29/2017 04:24 PM Electronically Signed By:VICENTE Couch
--- NOTE | 2017-06-29 19:16 | PCMIDPN ---
Assessment/Plan: Assessment/Plan: * Acalculous cholecystitis secondary to Streptococcus para sanguinous with subsequent bile leak and bile peritonitis status post incision and drainage: Clinically improved post drainage and stenting. Continue ceftriaxone while hospitalized. Likely can complete treatment with oral antibiotics if ready for discharge over next few days. Clinical findings and treatment plan reviewed with patient today. 06/29/17 19:13 Subjective: Patient feels significantly better. Mild residual abdominal pain. Objective: Vital Signs Temp Pulse Resp BP Pulse Ox 37.2 C 84 18 162/75 H 92 06/29/17 17:07 06/29/17 17:07 06/29/17 17:07 06/29/17 17:07 06/29/17 17:07 Microbiology 06/27/17 08:40 Gram Stain - Final Abdomen - Other Laboratory Results 06/28/17 04:39 06/28/17 04:39 06/28/17 06/29/17 06/30/17 05:59 05:59 05:59 Intake Total 800 1512.5 1500 Output Total 870 1715 30 Balance -70 -202.5 1470 Ceftriaxone # 2 Operative cultures from 06/27/2017 no growth - Physical Exam General Appearance: alert, no apparent distress EENT: No scleral icterus, No thrush Cardiac/Chest: regular rate, rhythm Abdomen: distended (Mild), tender (Mild diffusely), other (USMAN with serosanguineous output) ICD10 Worksheet Patient Problems: Problems Problem Status Onset Acalculous cholecystitis Acute Abscess of lung with pneumonia Acute Alcoholic intoxication Acute C1 cervical fracture Acute Chronic Disease Mgmt/Transitional Care Acute Fall Acute Nausea & vomiting Acute Pneumonia Acute Pneumothorax Acute Ribs, multiple fractures Acute Scapula fracture Acute Syncope and collapse Acute
[2017-06-29] MEDS: MELATONIN 3 MG TAB PO SCH (22:47)
[2017-06-30] MEDS: LEVOTHYROXINE 125 MCG TAB PO SCH (05:50)
[2017-06-30 06:09] LABS: ADD DIFF? YES; ADD MORPH? NO; ADD SCAN? NO; ATYPICAL LYMPHOCYTE FLAG 30 (0-99); FRAGMENT RBC FLAG 0 (0-99); HEMATOCRIT 24.7 % (40.0-51.0); HEMOGLOBIN 8.6 g/dL (13.7-17.5); LEFT SHIFT FLG 30 (0-99); LIPEMIA HEMOLYSIS FLAG 90 (0-99); MEAN CELL HEMOGLOBIN 31.7 pg (27.9-34.1); MEAN CELL HEMOGLOBIN CONCENTR. 34.8 g/dL (32.4-36.7); MEAN CELL VOLUME 91.1 fL (81.5-99.8); MEAN PLATELET VOLUME 9.9 fL (8.7-11.7); PLATELET CLUMPS FLAG 0 (0-99); PLATELET COUNT 269 10^3/uL (150-400); RED BLOOD CELL COUNT 2.71 10^6/uL (4.40-6.38); RED CELL DISTRIBUTION WIDTH 13.7 % (11.5-15.2)
[2017-06-30 06:22] LABS: ALANINE AMINOTRANSFERASE 55 IU/L (21-72); ALBUMIN 1.9 g/dL (3.5-5.0); ALKALINE PHOSPHATASE 111 IU/L (38-126); AMYLASE < 30 IU/L (30-110); ASPARTATE AMINOTRANSFERASE 56 IU/L (17-59); BILIRUBIN,TOTAL 0.4 mg/dL (0.1-1.4); BILIRUBIN-CONJUGATED 0.1 mg/dL (0.0-0.5); BILIRUBIN-UNCONJUGATED 0.3 mg/dL (0.0-1.1); TOTAL PROTEIN 3.6 g/dL (6.3-8.2)
[2017-06-30 07:02] LABS: MACROCYTES 1+; PLATELET ESTIMATE ADEQUATE (ADEQ); POLYCHROMASIA 1+
[2017-06-30] MEDS: cefTRIAXone 2 GM in D5W 50 ML IV SCH (09:10)
[2017-06-30] MEDS: ESCITALOPRAM OXALATE 10 MG TAB PO SCH (09:10)
[2017-06-30] MEDS: ENOXAPARIN 40 MG/0.4 ML SYR SC SCH (09:11)
[2017-06-30] MEDS: DIVALPROEX ER 500 MG TAB PO SCH ×2 (09:12→20:51)
[2017-06-30] MEDS: GABAPENTIN 400 MG CAP PO SCH ×2 (09:13→20:51)
[2017-06-30] MEDS: ATORVASTATIN CALCIUM 20 MG TAB PO SCH (09:13)
[2017-06-30] MEDS: LOSARTAN POTASSIUM 50 MG TAB PO SCH ×2 (09:16→09:28)
[2017-06-30] MEDS: oxyCODONE IR 5 MG TAB PO PRN ×3 (09:45→20:50)
[2017-06-30] MEDS: MODAFINIL 100 MG TAB PO SCH (10:23)
--- NOTE | 2017-06-30 13:23 | ASMTCMCOM ---
CM Note CM Note Notes: Met with patient and brother to discuss plans for discharge. Patient agreeable to having [facility] home organizer<PT and OT. Patient currently on three liters of O2 and is hopeful that he wont need to be on it when he discharges. patient also said the physician said he would be transitioning from IV antitbiotcs to orals. Patient states he is interested in having Meals on Wheels. Probable discharge in a day or two. Case management will follow. Date Signed: 06/30/2017 01:23 PM Electronically Signed By:VICENTE Couch
--- NOTE | 2017-06-30 13:37 | PCMIDPN ---
Assessment/Plan: Assessment/Plan: 1. Purulent acalculus cholecystitis with subsequent bile leak/peritonitis: - s/p lap felipe 06/23/17; and CBD stent on 06/26/17 - Cx from surgery : strep parasanguinis -blood cx ngtd; abdominal cx on 06/27-ngtd -Currently on Ceftriaxone. -Continue for now. Meds ceftraixone Subjective: afebrile. feeling a little better today . hasn't moved bowels in a couple of days. eating little. drain in place. still some abdominal tenderness.denies sob. Objective: Vital Signs Temp Pulse Resp BP Pulse Ox 37 C 77 18 128/58 H 84 L 06/30/17 08:26 06/30/17 13:16 06/30/17 13:16 06/30/17 13:16 06/30/17 13:23 Microbiology 06/27/17 08:40 Gram Stain - Final Abdomen - Other Laboratory Results 06/30/17 05:39 06/28/17 04:39 06/29/17 06/30/17 07/01/17 05:59 05:59 05:59 Intake Total 1512.5 1700 Output Total 1715 330 Balance -202.5 1370 - Physical Exam General Appearance: alert, no apparent distress Respiratory: coarse breath sounds (at bases b/l) Cardiac/Chest: regular rate, rhythm Extremities: No swelling Abdomen: other (bs quiet. mild tenderness near drain site. soft ) Skin: No erythema ICD10 Worksheet Patient Problems: Problems Problem Status Onset Acalculous cholecystitis Acute Abscess of lung with pneumonia Acute Alcoholic intoxication Acute C1 cervical fracture Acute Chronic Disease Mgmt/Transitional Care Acute Fall Acute Nausea & vomiting Acute Pneumonia Acute Pneumothorax Acute Ribs, multiple fractures Acute Scapula fracture Acute Syncope and collapse Acute
--- NOTE | 2017-06-30 14:11 | HOSPPROG ---
Hospitalist Progress Note Assessment/Plan: 71 yo male new to my care 06/29/17 admitted with acute cholecystitis and s/p cholecystectomy on 06/23. E/O sepsis on 06/25 and abx broadened. Bile leak and bile peritonitis diagnosed. S/P ERCP with sphincterotomy and stent placement . S/p abdominal washout for bile peritonitis 06/27 A: -worsening anemia likely multifactorial due to acute illness, surgery, and draining wound -Sepsis, bile peritonitis -Bile Leak, recent cholecystis on 06/23 -volume overload and pleural effusions -Acute Encephalopathy: resolved, he is back to baseline. 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 pt has had bad experienced at [facility] and insists on DC home. Will discuss with case management Subjective: He has not had a bowel movement. He is not eating much. His pain is controlled. The patient is frustrated since he feels like he has been left in the dark. Objective: Vital Signs Temp Pulse Resp BP Pulse Ox 37 C 77 18 128/58 H 84 L 06/30/17 08:26 06/30/17 13:16 06/30/17 13:16 06/30/17 13:16 06/30/17 13:23 Microbiology 06/27/17 08:40 Gram Stain - Final Abdomen - Other Laboratory Results 06/30/17 05:39 06/28/17 04:39 06/29/17 06/30/17 07/01/17 05:59 05:59 05:59 Intake Total 1512.5 1700 Output Total 1715 330 Balance -202.5 1370 - Physical Exam Constitutional: no apparent distress, appears nourished, not in pain Ears, Nose, Mouth, Throat: moist mucous membranes, hearing normal, ears appear normal, no oral mucosal ulcers Cardiovascular: regular rate and rhythym, no murmur, rub, or gallop Respiratory: no respiratory distress, no rales or rhonchi, clear to auscultation Gastrointestinal: normoactive bowel sounds, soft, non-tender abdomen, no palpable masses, other (USMAN drain in place draining serosanguineous fluid), No guarding, No rebound, No distension Neurologic: AAOx3, sensation intact bilaterally ICD10 Worksheet Patient Problems: Problems Problem Status Onset Syncope and collapse Acute Pneumonia Acute Abscess of lung with pneumonia Acute Alcoholic intoxication Acute C1 cervical fracture Acute Chronic Disease Mgmt/Transitional Care Acute Fall Acute Ribs, multiple fractures Acute Pneumothorax Acute Scapula fracture Acute Nausea & vomiting Acute Acalculous cholecystitis Acute
--- NOTE | 2017-06-30 17:02 | SOAPPROG ---
SOAP Progress Note Assessment/Plan: Assessment/Plan: 71 Y M s/p lap felipe for acute necrotic cholecystitis. s/p ERCP and stent placement for bile leak. s/p washout and WESLEY for bile peritonitis. Labs improved. Eating better. Pain controlled (mostly chronic rotator cuff pain he says, also RUQ). Dispo: Likely home tomorrow. Refusing SNF but open to home care. Hope to remove drain before d/c. S: Long conversation with patient and his brother this evening regarding how sick his gallbladder was and the following procedures. Also discussed healing expectations. [place] like he was in the dark about his condition, admits it was bc he wasn't feeling well. but now says he feels fully informed after talking to multiple care providers today. C/o leakage around his USMAN drain. O: alert, nad no jaundice ctab anteriorly rrr abd soft, +BS, inc cdi, drain nonbilious, serosanguinous. 06/30/17 16:57 Objective: Vital Signs Temp Pulse Resp BP Pulse Ox 37.2 C 84 18 121/62 H 91 L 06/30/17 16:52 06/30/17 16:52 06/30/17 16:52 06/30/17 16:52 06/30/17 16:52 Microbiology 06/27/17 08:40 Gram Stain - Final Abdomen - Other Laboratory Results 06/30/17 05:39 06/28/17 04:39 06/29/17 06/30/17 07/01/17 05:59 05:59 05:59 Intake Total 1512.5 1700 Output Total 1715 330 Balance -202.5 1370 ICD10 Worksheet Patient Problems: Problems Problem Status Onset Acalculous cholecystitis Acute Abscess of lung with pneumonia Acute Alcoholic intoxication Acute C1 cervical fracture Acute Chronic Disease Mgmt/Transitional Care Acute Fall Acute Nausea & vomiting Acute Pneumonia Acute Pneumothorax Acute Ribs, multiple fractures Acute Scapula fracture Acute Syncope and collapse Acute
[2017-06-30] MEDS: MELATONIN 3 MG TAB PO SCH (20:50)
[2017-06-30] MEDS: QUEtiapine FUMARATE 50 MG TAB PO SCH (20:52)
[2017-07-01] MEDS: oxyCODONE IR 5 MG TAB PO PRN ×2 (02:07→08:03)
[2017-07-01] MEDS: LEVOTHYROXINE 125 MCG TAB PO SCH (05:17)
[2017-07-01 05:49] LABS: % IMMATURE GRANULYOCYTES 2.3 % (0.0-1.1); ABSOLUTE IMMATURE GRANULOCYTES 0.22 10^3/uL (0.00-0.10); ADD DIFF? NO; ADD MORPH? NO; ADD SCAN? NO; ATYPICAL LYMPHOCYTE FLAG 20 (0-99); FRAGMENT RBC FLAG 10 (0-99); HEMATOCRIT 24.4 % (40.0-51.0); HEMOGLOBIN 8.3 g/dL (13.7-17.5); LEFT SHIFT FLG 20 (0-99); LIPEMIA HEMOLYSIS FLAG 90 (0-99); MEAN CELL HEMOGLOBIN 31.6 pg (27.9-34.1); MEAN CELL VOLUME 92.8 fL (81.5-99.8); PLATELET CLUMPS FLAG 10 (0-99); PLATELET COUNT 291 10^3/uL (150-400); RED BLOOD CELL COUNT 2.63 10^6/uL (4.40-6.38); RED CELL DISTRIBUTION WIDTH 13.9 % (11.5-15.2)
[2017-07-01 06:18] LABS: ALANINE AMINOTRANSFERASE 46 IU/L (21-72); ALBUMIN 1.8 g/dL (3.5-5.0); ALKALINE PHOSPHATASE 99 IU/L (38-126); ANION GAP 7 mEq/L (8-16); ASPARTATE AMINOTRANSFERASE 40 IU/L (17-59); BILIRUBIN,TOTAL 0.4 mg/dL (0.1-1.4); CALCIUM 7.8 mg/dL (8.5-10.4); CARBON DIOXIDE 31 mEq/l (22-31); CHLORIDE 104 mEq/L (97-110); CREATININE 0.7 mg/dL (0.7-1.3); GLOMERULAR FILTRATION RATE > 60; GLUCOSE 86 mg/dL (70-100); POTASSIUM 3.3 mEq/L (3.5-5.2); SODIUM 142 mEq/L (134-144); TOTAL PROTEIN 3.8 g/dL (6.3-8.2)
[2017-07-01] MEDS: LOSARTAN POTASSIUM 50 MG TAB PO SCH (08:02)
[2017-07-01] MEDS: ESCITALOPRAM OXALATE 10 MG TAB PO SCH (08:02)
[2017-07-01] MEDS: ATORVASTATIN CALCIUM 20 MG TAB PO SCH (08:02)
[2017-07-01] MEDS: DIVALPROEX ER 500 MG TAB PO SCH (08:02)
[2017-07-01] MEDS: GABAPENTIN 400 MG CAP PO SCH (08:03)
[2017-07-01] MEDS: ENOXAPARIN 40 MG/0.4 ML SYR SC SCH (08:03)
[2017-07-01] MEDS: cefTRIAXone 2 GM in D5W 50 ML IV SCH (08:03)
[2017-07-01] MEDS: MODAFINIL 100 MG TAB PO SCH (08:03)
--- NOTE | 2017-07-01 08:20 | SOAPPROG ---
SOAP Progress Note Assessment/Plan: Assessment/Plan: 71 Y M s/p lap felipe for acute necrotic cholecystitis. s/p ERCP and stent placement for bile leak. s/p washout and WESLEY for bile peritonitis. D/c USMAN drain. Likely home today with home care. D/c instructions added to d/c plan. S: sleeping comfortably. easily arousable. eager to go home today. O: alert, nad no jaundice ctab anteriorly rrr abd soft, +BS, inc cdi, drain nonbilious, serosanguinous. 07/01/17 08:19 Objective: Vital Signs Temp Pulse Resp BP Pulse Ox 37.1 C 70 14 115/69 91 L 07/01/17 05:22 07/01/17 05:22 07/01/17 05:22 07/01/17 05:22 07/01/17 05:22 Microbiology 06/25/17 17:30 Blood Culture - Final Blood 06/25/17 17:00 Blood Culture - Final Blood 06/27/17 08:40 Gram Stain - Final Abdomen - Other Laboratory Results 07/01/17 05:16 07/01/17 05:16 06/30/17 07/01/17 07/02/17 05:59 05:59 05:59 Intake Total 1700 2150 Output Total 330 40 Balance 1370 2110 ICD10 Worksheet Patient Problems: Problems Problem Status Onset Acalculous cholecystitis Acute Abscess of lung with pneumonia Acute Alcoholic intoxication Acute C1 cervical fracture Acute Chronic Disease Mgmt/Transitional Care Acute Fall Acute Nausea & vomiting Acute Pneumonia Acute Pneumothorax Acute Ribs, multiple fractures Acute Scapula fracture Acute Syncope and collapse Acute
[2017-07-01 09:28] VITALS: PULSE 82; O2SAT 92
--- NOTE | 2017-07-01 10:09 | PCMIDPN ---
Assessment/Plan: Assessment: Acalculous cholecystitis secondary to Streptococcus parasanguinous. This was complicated by a bilious leak. He has had this repaired with stenting. Currently recovering from his multiple procedures and clinically doing quite well. Patient is clinically for discharge from our standpoint. He will continue the ceftriaxone daily until discharge and then discontinue all antibiotics. Advised patient to watch for increasing right upper quadrant pain as well as fevers and chills. No follow-up necessary unless patient has symptoms return. Plan: 1. Discontinue ceftriaxone monotherapy after discharge. No oral antibiotics necessary. 2. Follow clinical course. Subjective: Patient is resting in his hospital bed. He feels well. He is eating breakfast. No fevers or chills. Denies any abdominal pain. Objective: Ceftriaxone # 4 Vital Signs Temp Pulse Resp BP Pulse Ox 37.2 C 82 17 117/55 L 92 07/01/17 09:20 07/01/17 09:20 07/01/17 09:20 07/01/17 09:20 07/01/17 09:20 Microbiology 06/25/17 17:30 Blood Culture - Final Blood 06/25/17 17:00 Blood Culture - Final Blood 06/27/17 08:40 Gram Stain - Final Abdomen - Other Laboratory Results 07/01/17 05:16 07/01/17 05:16 06/30/17 07/01/17 07/02/17 05:59 05:59 05:59 Intake Total 1700 2150 Output Total 330 40 Balance 1370 2110 - Physical Exam General Appearance: WD/WN, alert, no apparent distress, non-toxic Respiratory: lungs clear, normal breath sounds, No respiratory distress Cardiac/Chest: regular rate, rhythm, No tachycardia Abdomen: non-tender, soft, No mass Skin: normal color, warm/dry, No rash Neuro/Psych: alert, normal mood/affect, oriented x 3 ICD10 Worksheet Patient Problems: Problems Problem Status Onset Acalculous cholecystitis Acute Abscess of lung with pneumonia Acute Alcoholic intoxication Acute C1 cervical fracture Acute Chronic Disease Mgmt/Transitional Care Acute Fall Acute Nausea & vomiting Acute Pneumonia Acute Pneumothorax Acute Ribs, multiple fractures Acute Scapula fracture Acute Syncope and collapse Acute
[2017-07-01 12:23] VITALS: BP 109/49; RESP 16; TEMP 98.3
--- NOTE | 2017-07-01 12:41 | PDHOMEO2F ---
Home Oxygen Face to Face Home Orders: I certify that a physician or a nurse practitioner or physician's assistant professor has had a [id number] encounter with this patient on the date of this order due to the diagnosis listed, which relates to the primary reason the patient requires home oxygen. Alternative treatments have been tried, or considered, and deemed ineffective. It is anticipated that supplemental oxygen will result in improvement with treatment. Home oxygen qualifying diagnosis: atalectasis Home oxygen secondary diagnosis: hypoxemia SpO2 on room air (%): 82 Frequency of home oxygen needed: continuous Home oxygen liters per minute: 2L Home oxygen delivery device: nasal cannula Concentrator: Yes E-tanks for mobility and back up: Yes If ordering portable O2, is the patient mobile in the home?: Yes I certify that, based on these findings, the home oxygen is medically necessary for this patient for the following length of time. Length of time home oxygen needed: 1 month
--- NOTE | 2017-07-01 12:48 | ASMTCMCOM ---
CM Note CM Note Notes: Pt ready for DC today. Met with pt and brother today to discuss DC plan. Pt will have [facility] RN/PT/OT at [place]. Pt's friend Laney will set up Meals on Wheels. Pt's brother will stay the night with him and make sure he has food and supplies before leaving. [facility] alerted to DC. Date Signed: 07/01/2017 12:47 PM Electronically Signed By:Bibi Campo LCSW
--- NOTE | 2017-07-01 14:14 | PDHOMEO2F ---
Home Oxygen Face to Face Home Orders: I certify that a physician or a nurse practitioner or physician's lead assistant manager has had a [id number] encounter with this patient on the date of this order due to the diagnosis listed, which relates to the primary reason the patient requires home oxygen. Alternative treatments have been tried, or considered, and deemed ineffective. It is anticipated that supplemental oxygen will result in improvement with treatment. Home oxygen qualifying diagnosis: pulmonary edema Home oxygen secondary diagnosis: atalectasis SpO2 on room air (%): 83 Frequency of home oxygen needed: continuous Home oxygen liters per minute: 3 Home oxygen delivery device: nasal cannula Concentrator: Yes E-tanks for mobility and back up: Yes If ordering portable O2, is the patient mobile in the home?: Yes I certify that, based on these findings, the home oxygen is medically necessary for this patient for the following length of time. Length of time home oxygen needed: 1 week
--- NOTE | 2017-07-01 14:14 | PDIAF ---
- Diagnosis Diagnosis: cholecystitis Code Status: Full Code - Medication Management Discharge Medications: Medications to Continue on Transfer Aspirin EC [Aspirin EC 81 mg (*)] 81 mg PO HS 06/22/17 [Last Taken 06/21/17] Atenolol [Tenormin 25 mg (*)] 25 mg PO BID 06/22/17 [Last Taken 06/21/17] Atorvastatin Calcium [Lipitor 20 mg (*)] 20 mg PO DAILY 06/22/17 [Last Taken ] Divalproex ER [Depakote ER 500 MG (*)] 1,000 mg PO HS 06/22/17 [Last Taken 06/21] Divalproex ER [Depakote ER 500 MG (*)] 500 mg PO DAILY 06/22/17 [Last Taken ] Escitalopram Oxalate [Lexapro] 5 mg PO DAILY 06/22/17 [Last Taken 06/21/17] Gabapentin [Neurontin 400 MG (*)] 400 mg PO BID 06/22/17 [Last Taken 06/21/17] Levothyroxine [Synthroid 125 mcg (*)] 125 mcg PO DAILY06 06/22/17 [Last Taken ] Losartan Potassium 100 mg PO DAILY 06/22/17 [Last Taken 06/21/17] Melatonin [Melatonin 3 MG (*)] 3 mg PO HS 06/22/17 [Last Taken 06/21/17] Modafinil [Provigil] 200 mg PO DAILY 06/22/17 [Last Taken 06/21/17] QUEtiapine FUMARATE [Seroquel 50 mg (*)] 150 mg PO DAILY 06/22/17 [Last Taken ] oxyCODONE IR [Oxycodone Ir (*)] 5 mg PO Q4 PRN #20 tab 07/01/17 [Last Taken Unknown] Discharge Medications: Refer to the Discharge Home Medication list for PRN reason. - Orders Services needed: Home Care, Registered Nurse, Physical Therapy, Occupational Therapy Home Care Face to Face: I certify that this patient was under my care and that I had the required [id number] encounter meeting the encounter requirements on the discharge day. My findings support the fact that the patient is homebound as defined in Home Care Face to Face Continued: CMS Chapter 7 Medicare Benefits Manual 30.1.1 , The condition of the patient is such that there exists a normal inability to leave home and consequently, leaving home would require a considerable and taxing effort. Isolation Type: None Diet Recommendation: no restrictions on diet Diet Texture: Regular Texture Diet - Follow Up Care Current Providers and Referrals: Theresa Palomares MD [Primary Care Provider] - As per Instructions Yony Mccullough MD [Medical Doctor] - follow up in 10 days
--- NOTE | 2017-07-01 16:57 | ASDISCHSUM ---
Discharge Information Plan Status:Home with Home Health Medically Cleared to Leave: Discharge Date: CM D/C Disposition: ADT D/C Disposition: Projected Discharge Date: Transportation at D/C: Discharge Delay Reason: Follow-Up Date: Discharge Slot: Final Diagnosis: Placement Information Patient Contact Information Contact Name:MAE Relationship: Address:[phone] WORK City: [facility] Phone: State/Zip Code: Email: Financial Information Financial Class: Primary Plan Desc:MEDICARE INPATIENT Primary Plan Number:[id number] Secondary Plan Desc:MIRANDA/MDR SUPPLEMENT Secondary Plan Number:[id number] Assessment Information [facility] CM Progress Note CM Note CM Note Notes: Patient admitted with abdominal pain - had brianna rey with Dr Mccullough yesterday and is recovering well. OT mega hernandez. Patient lives alone and is normally independent. I do not anticipate any discharge needs; however, Case Management available if things change. Date Signed: 06/23/2017 11:25 AM Electronically Signed By:Pallavi Joseph RN [facility] CM Progress Note CM Note CM Note Notes: OT recommending HC. Met with pt and friend Laney to discuss. They chose [facility] for HC PT/OT. Laney will sign pt up for Meals on Wheels. Laney will also hire someone to clean pt's home. She may take pt to her house for a few days at [place]. Let [facility] know to call Laney at [place] for location. C/M to follow. Date Signed: 06/24/2017 10:58 AM Electronically Signed By:Bibi Campo LCSW [facility] CM Progress Note CM Note CM Note Notes: D/C plan remains patient to return home with [facility]. CM will follow. Date Signed: 06/26/2017 12:39 PM Electronically Signed By:Anita Acevedo LCSW [facility] CM Progress Note CM Note CM Note Notes: Pt tx'd back to 1N after going to ICU for bile leak. Pt now on IV ABX. It is unclear if pt will need IV ABX at DC. Pt currently set up with [facility] HC RN and OT. C/M will follow for add'l DC needs. Date Signed: 06/27/2017 03:09 PM Electronically Signed By:Bibi Campo LCSW [facility] CM Progress Note CM Note CM Note Notes: Spoke with OT today who said that therapies had previously felt patient would need Skilled nursigng facility on discharge but are now recommending home with Home care. [facility] home assessment nurse<PT and OT will follow. Date Signed: 06/29/2017 04:24 PM Electronically Signed By:VICENTE Couch [facility] Progress Note CM Note CM Note Notes: Met with patient and brother to discuss plans for discharge. Patient agreeable to having [facility] home assessment nurse<PT and OT. Patient currently on three liters of O2 and is hopeful that he wont need to be on it when he discharges. patient also said the physician said he would be transitioning from IV antitbiotcs to orals. Patient states he is interested in having Meals on Wheels. Probable discharge in a day or two. Case management will follow. Date Signed: 06/30/2017 01:23 PM Electronically Signed By:VICENTE Couch [facility] Progress Note CM Note CM Note Notes: Pt ready for DC today. Met with pt and brother today to discuss DC plan. Pt will have [facility] RN/PT/OT at [place]. Pt's friend Laney will set up Meals on Wheels. Pt's brother will stay the night with him and make sure he has food and supplies before leaving. [facility] alerted to DC. Date Signed: 07/01/2017 12:47 PM Electronically Signed By:Bibi Campo LCSW Intervention Information Intervention Type:*HORAN-Signed Date of Service:06/23/2017 09:42 AM Patient Type:Observation Staff Member:Jenny Arriaga Hours: Discipline: Severity: Comment: Intervention Type:*IM-Signed Date of Service:07/01/2017 01:59 PM Patient Type:Inpatient Staff Member:Jenny Arriaga Hours: Discipline: Severity: Comment:
--- NOTE | 2017-07-02 00:32 | GDS ---
[f rep st] DISCHARGE SUMMARY DISCHARGE DIAGNOSES: 1. Acute cholecystitis, status post cholecystectomy, complicated by bile leak and biliary peritoniti s. 2. Resolved sepsis. 3. Volume overload and pulmonary edema. 4. Resolved acute encephalopathy. 5. History of venous thromboembolism and factor V Leiden mutation. 6. Bipolar disorder. 7. Hypertension. CONSULTANTS: Dr. Yony Mccullough, General Surgery; [facility]; Dr. Krysten THOMPSON of [facility]. HOSPITAL COURSE AND STAY BY PROBLEM: 1. Cholecystitis: The patient presented to the hospital on 06/22/2017, with abdominal pain. Dr. Tammy reyna was consulted, who took him to the operating room on 06/23/2017, where he underwent a laparoscopi c cholecystectomy. Dr. Bashir was consulted on 06/26/2017, after the patient was found to have a bi le leak, for which he underwent an ERCP and underwent biliary sphincterotomy, as well as insertion of a plastic stent into the common bile duct. Postoperatively, the patient's hospital course has been complicated by biliary peritonitis. Infectious Disease was consulted, who have been treating him wit h IV antibiotics. On day of discharge, patient appears to be doing better. He had a USMAN drain, which was removed on the day of discharge by Dr. Mcculluogh. I discussed the case with Dr. Garcia, who does no t think he requires any further antibiotic use. 2. Hypoxemia in the setting of hospitalization for sepsis with volume overload and pulmonary edema: The patient has remained mildly hypoxemic throughout this hospital stay. On day of discharge, he is still requiring supplemental oxygen, which will be continued at home. This will need to be further followed up by his primary care provider. PHYSICAL EXAM: VITAL SIGNS: On day of discharge, blood pressure 109/49, pulse of 82, respiratory ra te 16, O2 sat 92% on 1 L, temperature afebrile. GENERAL: No acute distress. HEART: S1, S2. LUNGS : Clear with diminished breath sounds in bilateral bases. ABDOMEN: Soft. PROCEDURES DONE THIS HOSPITAL STAY: Laparoscopic cholecystectomy done by Dr. Mccullough on 06/29/2017. E CLASSIFYING MACHINE OPERATOR with sphincterotomy and biliary stent placement done by Dr. Bashir on 06/26/2017. DISCHARGE MEDICATIONS: Please refer to discharge medication reconciliation in [facility] for details. DISCHARGE INSTRUCTIONS: The patient will be discharged home with home care and home oxygen. He shou ld follow up with Dr. Bashir as directed for stent removal. Greater than 30 minutes were spent on the discharge of this patient. /[id number]/MODL
== END 2017-07-01 17:00 | disposition home health service (06) | DRG 417 ==
LOC: UNDOADMOB 16:21 → F1N 18:07 → OBSVTOIN 06-23 17:03 → F2N 06-25 13:58 → F1N 06-27 10:04
PROVIDERS: ADMIT Hospitalist; ATTEND Hospitalist
PROC: 0FT44ZZ Resection of Gallbladder, Percutaneous Endoscopic Approach (ICD-10-PCS; principal; 2017-06-23 06:00)
PROC: 0F798DZ Dilation of Common Bile Duct with Intraluminal Device, Via Natural or Artificial Opening Endoscopic (ICD-10-PCS; 2017-06-26)
PROC: 0W9G00Z Drainage of Peritoneal Cavity with Drainage Device, Open Approach (ICD-10-PCS; 2017-06-27)
DX: K81.0 Acute cholecystitis (principal); K65.3 Choleperitonitis; A40.9 Streptococcal sepsis, unspecified; G93.49 Other encephalopathy; T81.4XXA Infection following a procedure, initial encounter; F31.9 Bipolar disorder, unspecified; I10 Essential (primary) hypertension; R09.02 Hypoxemia; F10.21 Alcohol dependence, in remission; Z88.0 Allergy status to penicillin; Z86.718 Personal history of other venous thrombosis and embolism
CPT/HCPCS: 96374; 97116-GP; 97161-GP; 97166-GO; 97168-GO; 97530-GO; 97530-GP; 97535-GO; A9537; C2625; G0378; G0480; G8978-GP-CI; G8978-GP-CJ; G8979-GP-CI; G8980-GP-CI; G8987-GO-CJ; G8988-GO-CI; G8989-GO-CI; J0696; J1100; J1170; J1335; J1610; J1650; J1885; J1940; J1956; J2250; J2370; J2405; J2550; J2704; J3010; J3370; Q9961; Q9967

== ENCOUNTER 2017-07-15 14:24 | Emergency (ER) | payer OTHER, MEDICARE ==
[2017-07-15 14:37] VITALS: RESP 16; TEMP 97.7
--- NOTE | 2017-07-15 15:28 | EDPHY ---
H & P Smoking Status: Former smoker Time Seen by Provider: 07/15/17 15:01 HPI/ROS: CHIEF COMPLAINT: Hypotension HISTORY OF PRESENT ILLNESS: 71-year-old male presents to the emergency department by private vehicle with concerns about hypotension. Patient has a history of hypertension and is prescribed losartan and atenolol. He has been taking these as prescribed including taking those medications this morning. He states that on 06/23/2017 he had a cholecystectomy. He developed sepsis. He was in the hospital for 12 days and was discharged home. He continues to have some pain especially in the morning in his right upper quadrant which usually improves throughout the day. No fevers or chills. No vomiting or diarrhea. He is eating a bit less. He is not nauseous. No diarrhea. He has been feeling dizzy over last day or 2 and took his blood pressure at home and was very low, 70/50. He had urgent care today and his blood pressure there was 80 systolic and he was told to come to the emergency department for evaluation. The patient does not currently have any pain in his chest or trouble breathing. He does still feels slightly dizzy especially when he is up moving around. He did however state that he walked about 3 blocks earlier today and he states at that time he felt fine. No urinary symptoms. REVIEW OF SYSTEMS: Constitutional: No fever, no chills. Eyes: No double or blurry vision. ENT: No sore throat. Respiratory: No cough, no shortness of breath. Cardiac: No chest pain. Gastrointestinal: No abdominal pain, vomiting or diarrhea. Genitourinary: No dysuria. Musculoskeletal: No neck or back pain. Skin: No rashes. Neurological: No headache. (Enedina Neumann) Past Medical/Surgical History: Anxiety, bipolar, hypothyroidism, hypertension, chronic right shoulder pain due to torn rotator cuff, history of alcohol abuse sober x1 year, C1 fracture with cervical fusion in July 2015, cholecystectomy 06/23/2017 (Enedina Neumann) Social History: (Enedina Neumann) Physical Exam: General Appearance: Alert, no distress. Blood pressure 108/57, heart rate 56, respirations 16, 98% on room air, afebrile with a temperature 36.5degrees. Eyes: Pupils equal and round. Extraocular motions are all intact. ENT: Mouth: Mucous membranes moist. Respiratory: No wheezing, rhonchi, or rales, lungs are clear to auscultation. Cardiovascular: Regular rate and rhythm. Gastrointestinal: Patient has well-healed surgical incisions with lauren present in the left side the abdomen. Neurological: Alert and oriented x 3, cranial nerves II through XII grossly intact Skin: Warm and dry, no rashes. Musculoskeletal: Nontender to palpate along the cervical, thoracic or lumbar spine. Neck is supple. Extremities: Full range of motion and no peripheral edema. Psychiatric: Patient is oriented X 3, there is no agitation. (Enedina Neumann) Constitutional: Initial Vital Signs Temperature (C) 36.5 C 07/15/17 14:34 Heart Rate 56 L 07/15/17 14:34 Respiratory Rate 16 07/15/17 14:34 Blood Pressure 108/57 L 07/15/17 14:34 O2 Sat (%) 98 07/15/17 14:34 O2 Delivery Mode Room Air Allergies/Adverse Reactions: Penicillins Allergy (Verified 06/22/17 14:11) Unknown Sulfa (Sulfonamide Antibiotics) Allergy (Verified 06/22/17 14:11) Rash Home Medications: Medication Instructions Recorded Aspirin EC [Aspirin EC 81 mg (*)] 81 mg PO HS 06/22/17 Atenolol [Tenormin 25 mg (*)] 25 mg PO BID 06/22/17 Atorvastatin Calcium [Lipitor 20 20 mg PO DAILY 06/22/17 mg (*)] Divalproex ER [Depakote ER 500 MG 1,000 mg PO HS 06/22/17 (*)] Divalproex ER [Depakote ER 500 MG 500 mg PO DAILY 06/22/17 (*)] Escitalopram Oxalate [Lexapro] 5 mg PO DAILY 06/22/17 Gabapentin [Neurontin 400 MG (*)] 400 mg PO BID 06/22/17 Levothyroxine [Synthroid 125 mcg 125 mcg PO DAILY06 06/22/17 (*)] Losartan Potassium 100 mg PO DAILY 06/22/17 Melatonin [Melatonin 3 MG (*)] 3 mg PO HS 06/22/17 Modafinil [Provigil] 200 mg PO DAILY 06/22/17 QUEtiapine FUMARATE [Seroquel 50 150 mg PO DAILY 06/22/17 mg (*)] oxyCODONE IR [Oxycodone Ir (*)] 5 mg PO Q4 PRN #20 tab 07/01/17 Medical Decision Making - Diagnostics EKG Interpretation: EKG interpreted by me reveals sinus rhythm, rate 53, no ST or T segment changes. (Saundra Boyd) Imaging Results: Imaging Impressions Chest/Thorax CTA 07/15/17 16:45 Impression: 1. No pulmonary embolic disease. 2. Coronary artery disease. Results called and discussed with Dr. Boyd, at 07/15/2017 17:29 General information for patients regarding this examination can be found at [email or web address]. If you have questions or comments about this report, please contact me at [phone] (hospital) or [phone] (cell). ED Course/Re-evaluation: The case was discussed with Dr. Saundra Boyd, supervising physician, who also evaluated the patient in the emergency department. Patient is afebrile. He appears well. Orthostatic vitals: Supine 94/50 heart rate 54 Sitting 99/56, heart rate 55 Standing 94/50, heart rate 58 Laboratory studies were drawn. Patient had elevated D-dimer of 3.15. CT pulmonary angiogram is pending. Patient's troponin was negative. (Enedina Neumann) This patient is seen and examined by me. Recent cholecystectomy and postoperative, sepsis, with prolonged hospitalization. Since discharge home, he has had intermittent dizziness, especially when standing up from a seated position. Today he was especially dizzy and took his blood pressure. 77/46 at home. He has a history of hypertension and has been taking his blood pressure medications as prescribed, including losartan and atenolol. No recent change in blood pressure medication. He is tolerating oral fluids well and does not feel ill. No fever or chills. On physical exam, he is alert and nontoxic- appearing. Conjunctiva are normal, no pallor; chest is clear to auscultation, heart regular rhythm and rate, abdomen is soft, well healing surgical wounds, without surrounding erythema or drainage, minimal tenderness in the right upper quadrant. Will give him a L of fluids and check laboratory studies. 17:[address] Gan, radiologist. CTA chest negative for PE. Evidence of LAD calcification. 1800: Blood pressure 126/74, pt asymptomatic with ambulation. Symptoms have resolved after normal saline. He feels back to his baseline status and would like to go home. I suspect that his hypotension is related to blood pressure medication, and/or dehydration, as there is no evidence for a serious etiology. He will hold the metoprolol for now. He will follow up with his primary care physician in the office. He will return to the emergency department for recurrent hypotension or any concerns. (Saundra Boyd) Differential Diagnosis: Including but not limited to dehydration, dissection, electrolyte abnormality, anemia, acute blood loss, pulmonary embolism, myocardial infarction (Enedina Neumann) - Data Points Laboratory Results: Laboratory Results 07/15/17 16:00 07/15/17 16:00 07/15/17 07/15/17 07/15/17 16:00 16:00 16:00 WBC 7.09 10^3/uL 10^3/uL (3.80-9.50) RBC 3.89 10^6/uL L 10^6/uL (4.40-6.38) Hgb 12.0 g/dL L g/dL (13.7-17.5) Hct 37.1 % L % (40.0-51.0) MCV 95.4 fL fL (81.5-99.8) MCH 30.8 pg pg (27.9-34.1) MCHC 32.3 g/dL L g/dL (32.4-36.7) RDW 13.9 % % (11.5-15.2) Plt Count 194 10^3/uL 10^3/uL (150-400) MPV 11.1 fL fL (8.7-11.7) Neut % (Auto) 45.3 % % (39.3-74.2) Lymph % (Auto) 41.2 % % (15.0-45.0) Peach % (Auto) 8.7 % % (4.5-13.0) Eos % (Auto) 3.4 % % (0.6-7.6) Baso % (Auto) 0.8 % % (0.3-1.7) Nucleat RBC Rel Count 0.0 % % (0.0-0.2) Absolute Neuts (auto) 3.21 10^3/uL 10^3/uL (1.70-6.50) Absolute Lymphs (auto) 2.92 10^3/uL 10^3/uL (1.00-3.00) Absolute Monos (auto) 0.62 10^3/uL 10^3/uL (0.30-0.80) Absolute Eos (auto) 0.24 10^3/uL 10^3/uL (0.03-0.40) Absolute Basos (auto) 0.06 10^3/uL 10^3/uL (0.02-0.10) Absolute Nucleated RBC 0.00 10^3/uL 10^3/uL (0-0.01) Immature Gran % 0.6 % % (0.0-1.1) Immature Gran # 0.04 10^3/uL 10^3/uL (0.00-0.10) D-Dimer 3.15 ug/mLFEU H ug/mLFEU (0.00-0.50) Sodium 144 mEq/L mEq/L (134-144) Potassium 4.6 mEq/L mEq/L (3.5-5.2) Chloride 105 mEq/L mEq/L (97-110) Carbon Dioxide 26 mEq/l mEq/l (22-31) Anion Gap 13 mEq/L mEq/L (8-16) BUN 20 mg/dL mg/dL (7-23) Creatinine 1.4 mg/dL H mg/dL (0.7-1.3) Estimated GFR 50 Glucose 94 mg/dL mg/dL (70-100) Calcium 9.3 mg/dL mg/dL (8.5-10.4) Troponin I < 0.012 ng/mL ng/mL (0.000-0.034) Medications Given: Discontinued Medications Sodium Chloride (Ns) 1,000 mls @ 0 mls/hr IV ONCE ONE PRN Reason: Wide Open Stop: 07/15/17 15:40 Last Admin: 07/15/17 15:59 Dose: 1,000 mls Departure - Departure Disposition: Home, Routine, Self-Care Clinical Impression: Dizziness Condition: Good Instructions: Lightheadedness (ED) Additional Instructions: Drink plenty of fluids. Do not take the metoprolol until your physician advises you to do so. If your systolic blood pressure is less than 120, do not take Losartan in the morning. Call to make an appointment with your physician. Return for recurrent dizziness, low blood pressure or any concerns. Referrals: Theresa Palomares MD [Primary Care Provider] - As per Instructions
[2017-07-15] MEDS ORDERED: NS 1,000 ML IV ONE (15:39)
--- NOTE | 2017-07-15 15:58 | CPEKG ---
Heart Rate: 53 RR Interval: 1132 P-R Interval: 192 QRSD Interval: 92 QT Interval: 420 QTC Interval: 395 P [place]: 50 QRS [place]: -32 T Wave [place]: 51 EKG Severity - OTHERWISE NORMAL ECG - EKG Impression: SINUS RHYTHM EKG Impression: LEFT AXIS DEVIATION Electronically Signed By: Saundra Boyd 15-Jul-2017 22:59:58
[2017-07-15 16:12] LABS: % IMMATURE GRANULYOCYTES 0.6 % (0.0-1.1); ABSOLUTE IMMATURE GRANULOCYTES 0.04 10^3/uL (0.00-0.10); ADD DIFF? NO; ADD MORPH? NO; ADD SCAN? NO; ATYPICAL LYMPHOCYTE FLAG 0 (0-99); FRAGMENT RBC FLAG 0 (0-99); HEMATOCRIT 37.1 % (40.0-51.0); LEFT SHIFT FLG 0 (0-99); LIPEMIA HEMOLYSIS FLAG 80 (0-99); MEAN CELL HEMOGLOBIN 30.8 pg (27.9-34.1); MEAN CELL HEMOGLOBIN CONCENTR. 32.3 g/dL (32.4-36.7); MEAN CELL VOLUME 95.4 fL (81.5-99.8); MEAN PLATELET VOLUME 11.1 fL (8.7-11.7); PLATELET CLUMPS FLAG 10 (0-99); PLATELET COUNT 194 10^3/uL (150-400); RED BLOOD CELL COUNT 3.89 10^6/uL (4.40-6.38); RED CELL DISTRIBUTION WIDTH 13.9 % (11.5-15.2)
[2017-07-15 16:25] LABS: ANION GAP 13 mEq/L (8-16); CALCIUM 9.3 mg/dL (8.5-10.4); CARBON DIOXIDE 26 mEq/l (22-31); CHLORIDE 105 mEq/L (97-110); CREATININE 1.4 mg/dL (0.7-1.3); GLOMERULAR FILTRATION RATE 50; GLUCOSE 94 mg/dL (70-100); POTASSIUM 4.6 mEq/L (3.5-5.2); SODIUM 144 mEq/L (134-144)
[2017-07-15 16:37] LABS: TROPONIN I < 0.012 ng/mL (0.000-0.034)
[2017-07-15] MEDS ORDERED: IOPAMIDOL (ISOVUE 370) 100 ML BTL IV ONE (16:53)
[2017-07-15 17:58] VITALS: BP 126/68; PULSE 52; O2SAT 95
== END 2017-07-15 18:18 | disposition home or self-care (01) ==
DX: R42 Dizziness and giddiness (principal); I10 Essential (primary) hypertension; Z79.82 Long term (current) use of aspirin; Z87.891 Personal history of nicotine dependence
CPT/HCPCS: 71275; 93005; 96360; 99285; Q9967

== ENCOUNTER → 2018-02-04 | Outpatient (CLI) | payer OTHER, MEDICARE | LOC: FIMAGING 19:01 | PROVIDERS: ATTEND Physician Assistant | DX: M25.512 Pain in left shoulder (principal); M75.102 Unspecified rotator cuff tear or rupture of left shoulder, not specified as traumatic; M75.52 Bursitis of left shoulder; M75.82 Other shoulder lesions, left shoulder; Z98.890 Other specified postprocedural states ==

== ENCOUNTER → 2018-05-26 | Outpatient (CLI) | payer OTHER, MEDICARE | LOC: FIMAGING 18:02 | PROVIDERS: ATTEND Orthopaedic Surgery | DX: M25.512 Pain in left shoulder (principal); M75.122 Complete rotator cuff tear or rupture of left shoulder, not specified as traumatic; M75.22 Bicipital tendinitis, left shoulder; M19.012 Primary osteoarthritis, left shoulder; Z98.890 Other specified postprocedural states ==

== ENCOUNTER → 2018-09-22 | Outpatient (CLI) | payer OTHER, MEDICARE | LOC: BMCIMAGING 13:14 | PROVIDERS: ATTEND Family Medicine | DX: S52.502A Unspecified fracture of the lower end of left radius, initial encounter for closed fracture (principal) ==

== ENCOUNTER 2018-10-09 17:18 | Inpatient (IN) | payer OTHER, MEDICARE ==
--- NOTE | 2018-10-09 17:54 | EDPHY ---
H & P Time Seen by Provider: 10/09/18 17:22 HPI/ROS: CHIEF COMPLAINT: Mental health hold HISTORY OF PRESENT ILLNESS: Patient is a 73-year-old male who presents emergency department on a mental health hold. Patient is seen by [facility]. garbage worker visited in today. The patient saw new an extensive bruising on his face and all over his body. EMS and police were notified. Per report, the patient's house was quite disheveled. There are numerous empty alcohol shooter bottles and empty prescription bottles. Patient states that he fell down some stairs. He has no complaint of headache or neck pain. He denies visual change. He has no facial pain. No chest pain or shortness of breath. Patient denies abdominal pain. Patient states he ambulates without difficulty. He has no complaints at this time. Patient denies suicidal thoughts. REVIEW OF SYSTEMS: 10 systems were reveiwed and are negative with the exception of the elements mentioned in the history of present illness. Past Medical/Surgical History: Includes alcohol abuse Smoking Status: Former smoker Physical Exam: Vitals noted GENERAL: No acute distress, alert. C-collar in place. HEAD: No evidence of trauma. face/ent: PERRLA, EOMI. Airway intact, no dental or oral injury, no malocclusion. Patient has significant bruising over his left forehead and left eye. NECK: The trachea is midline. There is no crepitus. The C-spine is nontender. RESPIRATORY: Clear to auscultation bilaterally, no rales, rhonchi or wheezing. Chest wall: Normal to appearance. No crepitance or deformity. CVS: Regular rate and rhythm, no rubs, murmurs, or gallops. ABDOMEN: Soft, nontender, nondistended, no bruising or abrasions. Pelvis: Stable. No tenderness palpation. BACK: Scattered bruising of various ages over his back, no spinal tenderness, no spinal step off. SKIN: Normal color, warm, dry. No pallor or diaphoresis. EXTREMITIES: Patient has scattered bruising on all extremities. The seem to various ages. Neurovascularly intact distally in all extremities, hips with full range of motion, moves all extremities freely. NEURO/PSYCH: Alert and oriented x 3, GCS 15, normal mood and affect, normal motor sensory exam. Constitutional: Initial Vital Signs Temperature (C) 36.8 C 10/09/18 17:37 Heart Rate 95 10/09/18 17:37 Respiratory Rate 16 10/09/18 17:37 Blood Pressure 135/71 H 10/09/18 17:37 O2 Sat (%) 95 10/09/18 17:37 O2 Delivery Mode Room Air Allergies/Adverse Reactions: Penicillins Allergy (Verified 06/22/17 14:11) Unknown Sulfa (Sulfonamide Antibiotics) Allergy (Verified 06/22/17 14:11) Rash Home Medications: Medication Instructions Recorded Aspirin EC [Aspirin EC 81 mg (*)] 81 mg PO HS 06/22/17 Atenolol [Tenormin 25 mg (*)] 25 mg PO BID 06/22/17 Atorvastatin Calcium [Lipitor 20 20 mg PO DAILY 06/22/17 mg (*)] Divalproex ER [Depakote ER 500 MG 1,000 mg PO HS 06/22/17 (*)] Divalproex ER [Depakote ER 500 MG 500 mg PO DAILY 06/22/17 (*)] Escitalopram Oxalate [Lexapro] 5 mg PO DAILY 06/22/17 Gabapentin [Neurontin 400 MG (*)] 400 mg PO BID 06/22/17 Levothyroxine [Synthroid 125 mcg 125 mcg PO DAILY06 06/22/17 (*)] Losartan Potassium 100 mg PO DAILY 06/22/17 Melatonin [Melatonin 3 MG (*)] 3 mg PO HS 06/22/17 Modafinil [Provigil] 200 mg PO DAILY 06/22/17 QUEtiapine FUMARATE [Seroquel 50 150 mg PO DAILY 06/22/17 mg (*)] oxyCODONE IR [Oxycodone Ir (*)] 5 mg PO Q4 PRN #20 tab 07/01/17 Medical Decision Making - Diagnostics Imaging Results: Imaging Impressions Cervical Spine CT 10/09/18 17:49 Impression: Large subdural hematoma superimposed upon underlying atrophy and probable small vessel disease. CT Cervical Spine Without Contrast History: Trauma. Patient has history of previous anterior cervical fusion. Technique: Multislice helical CT through the cervical spine without contrast from the skull base to T1. Soft tissue and bone evaluation is performed. Sagittal and coronal reconstructions are obtained and reviewed. Dose reduction techniques were utilized. Findings: Anterior cervical fusion is seen extending from C3-C6 with interbody fusion from C3-C4 to the C5-C6 level. The hardware appears intact. An acute fracture is not identified. Multilevel degenerative changes are seen with disk space loss at C2-C3 and at C6-C7. Prevertebral soft tissues appear normal. Multilevel facet hypertrophy is noted and there is mild multilevel neural foraminal impingement. Impression: Postoperative and degenerative changes are noted with no acute fracture identified. Results called and discussed with Samira Garrido MD on October 09, [address] 10/09/18 17:49 Impression: Large subdural hematoma superimposed upon underlying atrophy and probable small vessel disease. CT Cervical Spine Without Contrast History: Trauma. Patient has history of previous anterior cervical fusion. Technique: Multislice helical CT through the cervical spine without contrast from the skull base to T1. Soft tissue and bone evaluation is performed. Sagittal and coronal reconstructions are obtained and reviewed. Dose reduction techniques were utilized. Findings: Anterior cervical fusion is seen extending from C3-C6 with interbody fusion from C3-C4 to the C5-C6 level. The hardware appears intact. An acute fracture is not identified. Multilevel degenerative changes are seen with disk space loss at C2-C3 and at C6-C7. Prevertebral soft tissues appear normal. Multilevel facet hypertrophy is noted and there is mild multilevel neural foraminal impingement. Impression: Postoperative and degenerative changes are noted with no acute fracture identified. Results called and discussed with Samira Garrido MD on October 09, 2018 at 1946 hours. ED Course/Re-evaluation: In the emergency department I discussed possible etiologies with the patient. I answered his questions. He consented to the CT of the head neck. Laboratory studies were ordered. I reviewed the [facility] hold. Patient's CBC is notable for a low hematocrit at 32. Previous hematocrit was 38. Platelet are low at 72. Previous platelets 168 in March of 2018. Chemistry panel is notable for slightly low sodium. Head CT: Please refer the dictated report. Patient has a subdural hematoma. Please refer the dictated report by Dr. Holguin. I discussed the results with the patient. On recheck he was sitting in bed. He had no complaints. I discussed case with Dr. arguello from Neurosurgery. I discussed the case with Dr. Vences from the hospitalist service. 2010: Dr. Arguello is in the emergency department to evaluate the patient. He recommends patient receive platelets. Platelets were ordered. I discussed the case with Dr. Pozo. He came to the emergency department evaluated the patient. Differential Diagnosis: My differential includes but is not limited to psychosis, depression, self-harm , electrolyte abnormality, sugar abnormality, platelet dysfunction, coagulopathy , subarachnoid hemorrhage, subdural hematoma epidural hematoma, facial fracture , spinal injury Critical Care Time: Patient required 35 min of critical care time. This was exclusive of any unbundled procedure. This was due the patient's presentation, subdural hematoma , need for platelet replacement with thrombocytopenia, consultation with neurosurgery, internal medicine and trauma surgery. - Data Points Laboratory Results: Laboratory Results 10/09/18 18:04 10/09/18 18:04 10/09/18 10/09/18 10/09/18 20:00 18:04 18:04 WBC RBC Hgb Hct MCV MCH MCHC RDW Plt Count MPV Neut % (Auto) Lymph % (Auto) Burnett % (Auto) Eos % (Auto) Baso % (Auto) Nucleat RBC Rel Count Absolute Neuts (auto) Absolute Lymphs (auto) Absolute Monos (auto) Absolute Eos (auto) Absolute Basos (auto) Absolute Nucleated RBC Immature Gran % Seg Neutrophils % Band Neutrophils % Lymphocytes % Monocytes % Eosinophils % Basophils % Metamyelocytes % Myelocytes % Promyelocytes % Blast Cells % Immature Gran # Absolute Seg Neuts Absolute Band Neuts Absolute Lymphocytes Absolute Monocytes Absolute Eosinophils Absolute Basophils Absolute Metamyelocyte Absolute Myelocytes Absolute Promyelocytes Absolute Plasma Cells RBC/WBC/PLT Morphology Atypical Lymphocytes Absolute Blast Cells Plasma Cells % Smudge Cells Platelet Estimate PT 12.5 SEC SEC (12.0-15.0) INR 0.97 (0.83-1.16) APTT 29.2 SEC SEC (23.0-38.0) Sodium 134 mEq/L L mEq/L (135-145) Potassium 3.7 mEq/L mEq/L (3.5-5.2) Chloride 97 mEq/L mEq/L (97-110) Carbon Dioxide 24 mEq/l mEq/l (22-31) Anion Gap 13 mEq/L mEq/L (6-14) BUN 19 mg/dL mg/dL (7-23) Creatinine 0.9 mg/dL mg/dL (0.7-1.3) Estimated GFR > 60 Glucose 77 mg/dL mg/dL (70-100) Calcium 8.4 mg/dL L mg/dL (8.5-10.4) Salicylates < 1.0 mg/dL L mg/dL (2.0-20.0) Acetaminophen < 10 mcg/mL L mcg/mL (10-30) Ethyl Alcohol 396 mg/dL H mg/dL (0-10) Patient ABO/Rh Pending Antibody Screen Pending Platelet Orders Status Pending 10/09/18 18:04 WBC 9.37 10^3/uL 10^3/uL (3.80-9.50) RBC 3.23 10^6/uL L 10^6/uL (4.40-6.38) Hgb 11.4 g/dL L g/dL (13.7-17.5) Hct 32.1 % L % (40.0-51.0) MCV 99.4 fL fL (81.5-99.8) MCH 35.3 pg H pg (27.9-34.1) MCHC 35.5 g/dL g/dL (32.4-36.7) RDW 16.9 % H % (11.5-15.2) Plt Count 76 10^3/uL L 10^3/uL (150-400) MPV 11.5 fL fL (8.7-11.7) Neut % (Auto) 55.7 % % (39.3-74.2) Lymph % (Auto) 26.8 % % (15.0-45.0) Burnett % (Auto) 16.2 % H % (4.5-13.0) Eos % (Auto) 0.0 % L % (0.6-7.6) Baso % (Auto) 0.3 % % (0.3-1.7) Nucleat RBC Rel Count 0.0 % % (0.0-0.2) Absolute Neuts (auto) 5.22 10^3/uL 10^3/uL (1.70-6.50) Absolute Lymphs (auto) 2.51 10^3/uL 10^3/uL (1.00-3.00) Absolute Monos (auto) 1.52 10^3/uL H 10^3/uL (0.30-0.80) Absolute Eos (auto) 0.00 10^3/uL L 10^3/uL (0.03-0.40) Absolute Basos (auto) 0.03 10^3/uL 10^3/uL (0.02-0.10) Absolute Nucleated RBC 0.00 10^3/uL 10^3/uL (0-0.01) Immature Gran % 1.0 % % (0.0-1.1) Seg Neutrophils % 62.0 % % Band Neutrophils % 0.0 % % Lymphocytes % 26.0 % % Monocytes % 12.0 % % Eosinophils % 0.0 % % Basophils % 0.0 % % Metamyelocytes % 0.0 % % Myelocytes % 0.0 % % Promyelocytes % 0.0 % % Blast Cells % 0.0 % % Immature Gran # 0.09 10^3/uL 10^3/uL (0.00-0.10) Absolute Seg Neuts 0.00 10^3/uL L 10^3/uL (1.70-6.50) Absolute Band Neuts 0.00 10^3/uL 10^3/uL (0.00-0.70) Absolute Lymphocytes 0.00 10^3/uL L 10^3/uL (1.00-3.00) Absolute Monocytes 0.00 10^3/uL L 10^3/uL (0.30-0.80) Absolute Eosinophils 0.00 10^3/uL L 10^3/uL (0.03-0.40) Absolute Basophils 0.00 10^3/uL L 10^3/uL (0.02-0.10) Absolute Metamyelocyte 0.00 10^3/mL 10^3/mL (0.00-0.00) Absolute Myelocytes 0.00 10^3/mL 10^3/mL (0.00-0.00) Absolute Promyelocytes 0.00 10^3/uL 10^3/uL (0.00-0.00) Absolute Plasma Cells 0.00 10^3/uL 10^3/uL (0.00-0.00) RBC/WBC/PLT Morphology NORMAL (NORMAL) Atypical Lymphocytes 1+ H Absolute Blast Cells 0.00 10^3/uL 10^3/uL (0.00-0.00) Plasma Cells % 0.0 % % Smudge Cells 1+ H Platelet Estimate ADEQUATE (ADEQ) PT INR APTT Sodium Potassium Chloride Carbon Dioxide Anion Gap BUN Creatinine Estimated GFR Glucose Calcium Salicylates Acetaminophen Ethyl Alcohol Patient ABO/Rh Antibody Screen Platelet Orders Status Departure - Departure Disposition: [facility] In[facility] Acute Clinical Impression: Thrombocytopenia, Subdural hematoma Anemia Qualifiers: Anemia type: unspecified type Qualified Code(s): D64.9 - Anemia, unspecified Condition: Fair
[2018-10-09 18:18] LABS: INR 0.97 (0.83-1.16); PLATELET COUNT 76 10^3/uL (150-400); PROTIME(PATIENT) 12.5 SEC (12.0-15.0)
[2018-10-09] MEDS ORDERED: niCARdipine/NACL 200 ML IV SCH (20:30)
[2018-10-09] MEDS ORDERED: FLUMAZENIL 0.5 MG/5 ML MDV IVP PRN (20:31)
--- NOTE | 2018-10-09 21:34 | GHP ---
[f rep st] HISTORY AND PHYSICAL DATE OF ADMISSION: 10/09/2018 CHIEF COMPLAINT: Brought in by his psychiatric team. HISTORY OF PRESENT ILLNESS: This is a 73-year-old man who is followed by a psychiatric team, who was brought in today on an M1 hold. He was brought in because they did not believe that he was "competent." He notably had bruises all over his body. He tells me that he has been drinking a lot, up to 12 vodka drinks a day. He tells me he fell off his porch today and hit his head. He denies any focal numbness or weakness. He does have a headache. He tells me he is not confused. PAST MEDICAL/SURGICAL HISTORY: 1. Bipolar type 2. 2. Alcohol abuse, started 3 years ago. 3. Factor V Leiden. 4. History of a C1 fracture. 5. History of a PE. 6. Hypothyroid. 7. Cholecystectomy. MEDICATIONS: Please see medication reconciliation. ALLERGIES: Penicillin and sulfa. SOCIAL HISTORY: He drinks alcohol as above. He does smoke. FAMILY HISTORY: Reviewed and noncontributory. REVIEW OF SYSTEMS: A 10-point review of systems is conducted and is negative except per HPI. PHYSICAL EXAM: VITAL SIGNS: Blood pressure 129/81, heart rate 86, respiration rate 16, satting at 94% on room air, temperature 37.0. GENERAL: Pleasant man who has multiple bruises all over his body in varying stages of healing. HEENT : Large left eye hematoma. He is wearing a hard C-collar. CARDIOVASCULAR: Regular rate and rhythm. No murmurs, rubs, or gallops. PULMONARY: Breathing comfortably. LUNGS: Clear to auscultation bilaterally. ABDOMEN: Soft, nontender, and nondistended. Right-sided surgical scar. SKIN: As above. : No Corley. NEUROLOGIC: Alert and oriented x3. Appears mildly intoxicated. Motor 5/5 in upper and lower extremities. Sensation to light touch is intact in the upper and lower extremities. No facial droop. LABS: Hemoglobin is 11.4, platelets are 76, INR 0.97, sodium is 134, alcohol level is 396. DATA: 1. Discussed with ED physician. 2. Discussed with Dr. Avilez. 3. I personally viewed and interpreted his head CT scan that shows a left- sided subdural hematoma. 4. Cervical spine CT scan shows nothing acute. IMPRESSION AND PLAN: 1. Left-sided subdural hematoma: Per Dr. Avilez this is nonoperative. We will manage medically. Blood pressure to keep his systolic between 100 and 140. Will transfuse him for platelets of 71. We will follow him in the ICU closely. 2. Thrombocytopenia: Transfusion as above. 3. M1 hold: Currently on an M1 hold. He still appears mildly intoxicated. Will need to involve TLC at some point. 4. Bipolar: We will continue his home medications when these are reconciled. 5. Hypertension: Continue his losartan. 6. Deep venous thrombosis prophylaxis: We will place him on sequential compression devices. I would not use pharmacologic prophylaxis at this time given his subdural hematoma. BILLING: I spent a total of 45 minutes at bedside and floor critical care time. /[id number]/MODL MTDD
[2018-10-09] MEDS: THIAMINE HCL 500 MG in NS 100 ML IV SCH (22:52)
[2018-10-09] MEDS: NS 1,000 ML IV SCH (22:52)
[2018-10-09] MEDS: LORazepam 2 MG/ML INJ IVP PRN ×2 (23:04→23:46)
[2018-10-10 06:09] LABS: PLATELET COUNT 110 10^3/uL (150-400)
--- NOTE | 2018-10-10 07:24 | GCON ---
[f rep st] CONSULTATION TRAUMA CONSULTATION Consultation is at the request of Dr. Lainez from Internal Medicine, admitting the patient for acute on chronic subdural hematoma, fall of unwitnessed, unknown time. HISTORY OF PRESENT ILLNESS: This is a 73-year-old gentleman who is well known to our trauma system f rom multiple admissions over the past several years. The patient was found down by his veneer redrier to day, and brought in with various bruises all over his body, raccoon eyes, and lapse in memory. The p atient admits to drinking today. He drinks on a daily basis, 5-10 drinks, which has been his course for the last 3 years. The patient also has known bipolar disease. He is supposed to be taking Depak ote for this. He does not know the last time he took his medications. He had been on Xarelto in the past. He denies current taking of that Xarelto, but his veracity is in question. The patient compl ains of pain on his right buttock, and "pain all over," head and neck. The patient claims to have fa llen down the stairs, according to his medical notes. He says he fell off his deck. PAST MEDICAL HISTORY: Includes pulmonary embolus, hypothyroidism, alcohol abuse, bipolar disorder. FAMILY HISTORY: Significant for cardiac disease in his father, and COPD in his sister. He is former smoker. He does abuse alcohol. Currently, he has mentioned that he wants to quit, but he has not d one that in the last 3 years. SURGICAL HISTORY: Includes cholecystectomy and orthopedic surgery. REVIEW OF SYSTEMS: Unable to obtain a clear history from the patient. PHYSICAL EXAMINATION: VITAL SIGNS: The patient is alert. He is oriented to person, place, but he b elieves it is September 23. He does know who the president is. His mood is normal. Affect is norm al. HEENT: Sclerae are anicteric. He has somewhat bloodshot eyes. Pupils are 4 mm, reactive. Ext raocular motions intact. Trachea midline. No midline tenderness in the back. C-collar is in place. Bilateral raccoon eyes. SKIN: He has bruises on his left shoulder, left and right chest, and extr emities. LUNGS: Clear. HEART: Has regular heart tones. ABDOMEN: Soft, nontender. No hepatosple nomegaly. He has well-healed scars from previous surgery. His groins have no hernias. EXTREMITIES: He is moving all extremities. He has good muscle strength and range of motion. No long bone defor mities. No other acute injuries are found. BACK: Nontender to palpation. No step-offs. His right buttock has what appears to be a splinter or a wound from falling. The skin has some mild maceratio n, but no deep laceration or deep tissue injury. There is no abscess. LABORATORY STUDIES: Show a white blood cell count of 9.7, hemoglobin of 11.4, hematocrit of 32, plat elet count of 76, absolute monocytosis. His sodium is 134, potassium 3.7, chloride 97, bicarb 24, BU N 19, creatinine 0.9, calcium 8.4, glucose is 77. His PT is 12.5, INR 0.97, APTT 29.2. Toxicology s hows ethyl alcohol of 396. IMPRESSION: 1. Multiple bruises from falls, and chronic subdural hematoma. CT scan of the head and neck are per sonally reviewed on PACS. I agree with the findings of the head CT, showing an acute on chronic subd ural hematoma without acute fracture of the C-spine with previous cervical fusion. 2. Alcohol abuse. 3. Multiple falls. No long-bone or internal injuries, thoracic or abdominal. 4. Buttock wound, multiple abrasions. Main concerns are his subdural hematoma, acute on chronic. Neurosurgery is to see. Collar to remain in place until his alcohol level is normal or is cleared. We will continue following until tertiary survey is complete. /[id number]/MODL
[2018-10-10] MEDS: LORazepam 2 MG/ML INJ IVP PRN ×6 (08:16→22:18)
--- NOTE | 2018-10-10 08:55 | GCON ---
[f rep st] CONSULTATION DATE OF CONSULTATION: 10/09/2018 CONSULTING SERVICE: Emergency Medicine. TOLL MECHANIC: Neurosurgery. REASON FOR CONSULT: Left-sided subdural hematoma. HISTORY OF PRESENT ILLNESS: The patient is a 73-year-old male who has significant psychiatric issues and is followed by psychiatric team. He is also a heavy alcohol drinker. I saw him in the [facility] Emergency Department shortly after being consulted. He does have several other medical iss ues, including bipolar disease, heavy alcohol abuse, factor 5 Leiden disorder, history of PE. He was brought into the department today because he did not consider himself "competent." He has bruises a ll over his body. He has been drinking up to 12 vodka drinks a day. He reports that he fell off his porch and hit his head. Has no other complaints. Head CT was performed which demonstrated a significant left-sided acute frontotemporal subdural hemat ariana without much mass effect given his significant cerebral atrophy. PAST MEDICAL HISTORY: Per HPI, bipolar type 2, alcohol abuse, factor 5 Leiden, C1 fracture, PE, hypo thyroid, cholecystectomy. ALLERGIES: To penicillin and sulfa. CODE STATUS: Full. SOCIAL HISTORY: Positive alcohol. Positive tobacco use. Denies illicit drug abuse. FAMILY HISTORY: Reviewed but noncontributory in this particular setting. REVIEW OF SYSTEMS: Ten points are reviewed and negative. See HPI. PHYSICAL EXAM: VITALS: Afebrile at 37.0 degrees Celsius, blood pressure 129/81, heart rate 86, resp iratory rate 16, saturating 94% on room air. NEUROLOGIC: The patient is awake and alert. He is kimberly ented, follows all commands. He has normal cranial nerves. He is in a trauma collar that does not f it him particularly well. No abnormal reflexes, no abnormal sensory findings. No cerebellar finding s. Gait is deferred. LABS: Hemoglobin is 11.4, platelets are 76. INR 0.97. Sodium is 134. His alcohol level was 396. IMAGING: I reviewed his head CT and agree that he has a sizable acute subdural hematoma in the left frontotemporal region, but given his brain atrophy there is no significant mass effect or shift. IMPRESSION AND PLAN: The patient is a 73-year-old male with multiple medical problems, multiple psyc hiatric diagnoses and significant alcohol abuse who had a fall and has an acute left frontotemporal s ubdural hematoma. It is not causing significant mass effect or midline shift given his significant b rain atrophy. He is thrombocytopenic and will be admitted for observation under the trauma service. He will have a repeat scan and we will follow him clinically. Should he be in stable condition silva rrow, we will likely sign off as this does not appear to be a surgical case. Thank you for this consult. /[id number]/MODL
--- NOTE | 2018-10-10 09:42 | TRAUMAPNT ---
Trauma Tertiary Progress Note Assessment/Plan: 73 year old with multiple medical issues, history of alcohol abuse and falls, now with large SDH - no mass effect due to atrophy CT neck negative for acute injury and hardware in place No pain on palpation and full range of motion with minimal tightness C collar removed From my perspective, can transfer from unit when other medical issues permit Trauma will sign off and happy to re-consult with any needs PT/OT/ST S: Realizes had a big fall. Some pain by forehead Objective: Vital Signs Temp Pulse Resp BP Pulse Ox 36.4 C 103 H 23 H 139/76 H 93 10/10/18 00:00 10/10/18 09:00 10/10/18 09:00 10/10/18 09:00 10/10/18 09:00 Laboratory Results 10/10/18 05:50 10/09/18 10/10/18 10/11/18 04:59 05:59 05:59 Intake Total Output Total 100 Balance -100 PT 12.5 SEC (12.0-15.0) 10/09/18 18:04 INR 0.97 (0.83-1.16) 10/09/18 18:04 Physical Exam - Physical Exam General Appearance: alert, other (somewhat disheveled) EENT: PERRL/EOMI, pharynx normal, other (L periorbital ecchymosis), No scleral icterus (R), No scleral icterus (L), No photophobia, No hearing deficit Neck: non-tender, full range of motion, supple Respiratory: chest non-tender, lungs clear, normal breath sounds Cardiac/Chest: normal peripheral pulses, regular rate, rhythm Abdomen: normal bowel sounds, non-tender, soft Skin: normal color, warm/dry, other (ecchymosis as above) Extremities: normal range of motion Neuro/Psych: normal mood/affect
--- NOTE | 2018-10-10 09:56 | NEUSURGPN ---
Assessment/Plan: Assessment: 73 yr old M s/p fall left fronto-temporal SDH Plan: -Will get repeat CT this am -CT 10/09/18 shows left fronto-temporal subdural hematoma with minimal mass effect -Patient on CIWA -[place] collar for comfort only -if repeat CT is stable we will sign off. No surgical recommendation at this time. -Discussed patient with Dr Avilez Please call neurosurgery with questions/concerns Subjective: Sitting in chair, denies headache Objective: Sitting in chair AxOx4 PERRLA CN 2-12 grossly intact MAEx4 5/5 BUE, BLE Neuro Check Frequency: per routine Urinary Catheter in Place: No - Physician Discussed Patient with : Raghav Neurosurgery Physical Exam - Vitals, I&O, Labs I and O 10/09/18 10/10/18 10/11/18 04:59 05:59 05:59 Intake Total Output Total 100 Balance -100 Intake: IV Intake (ml) Platelets (ml) Output: Urine (ml) 100 Urinal 100 Other: Number of Voids Urinal 1 Vital Signs Temp Pulse Resp BP Pulse Ox 36.4 C 103 H 23 H 139/76 H 93 10/10/18 00:00 10/10/18 09:00 10/10/18 09:00 10/10/18 09:00 10/10/18 09:00 Laboratory Results 10/10/18 05:50 ICD10 Worksheet Patient Problems: Problems Problem Status Onset Anemia Acute Subdural hematoma Acute Thrombocytopenia Acute Abscess of lung with pneumonia Acute Acalculous cholecystitis Acute Alcoholic intoxication Acute C1 cervical fracture Acute Chronic Disease Mgmt/Transitional Care Acute Fall Acute Nausea & vomiting Acute Pneumonia Acute Pneumothorax Acute Ribs, multiple fractures Acute Scapula fracture Acute Syncope and collapse Acute
--- NOTE | 2018-10-10 11:09 | PDMN ---
Medical Necessity Medical necessity: [facility] [place], Nonsurgical Treatment, A-2 days: 73 yo found down by asphalt tar and gravel roofer after fall. Eval reveals acute on chronic subdural hematoma. Neurosurg consult. Trauma consult. Pt is currently on M1 hold for not being 'competent' per notes. Etoh level 396. Plt 76K placing him as high risk for bleed. Placed on CIWA protocol for high risk w/d. IVF, IV Ativan. Admit IP status ICU. Hx Bipolar d/o, etoh abuse, factor Vleiden, C1 fx , PE, hypothyroid
[2018-10-10] MEDS ORDERED: K PHOS 10 MMOL in D5W 250 ML IV ONE (12:00)
[2018-10-10] MEDS: NS 1,000 ML IV SCH (12:21)
[2018-10-10] MEDS: ACETAMINOPHEN 325 MG TAB PO PRN (13:11)
[2018-10-10] MEDS: ESCITALOPRAM OXALATE 10 MG TAB PO SCH (13:11)
--- NOTE | 2018-10-10 13:13 | NEUROPROG ---
Assessment: [id number] - Neurology Consult: - CC: Brain Hemorrhage - HPI: 10/10/18: Pt brought in to [facility] ER on 10/09/18 for concern of mental incompetence by his psychiatric team. Pt reported he had been using alcohol heavily and fallen off his porch and struck his head. A head CT in the ER showed an acute left subdural hematoma. Pt admitted and neurosurgery consulted. Pt placed in ICU on CIWA protocol to guard against alcohol withdrawal. I saw pt on 10/10/18. Neurologic exam was nonfocal but pt appeared slightly inattentive and slow with cognitive processing. Agree with ICU and neurosurgery plan. Case discussed with hospitalist. No further neurologic w/u needed, neurology will sign off. - PMHx: bipolar, alcohol abuse, Factor V Leiden, Hx C1 fx, PE, hypothyroid, choli - SHx: +tobacco FHx: NC - ROS: Pt denied acute fever, total vision loss, active severe chest pain, respiratory failure, total body severe rash, total bowel/bladder incontinence, psychosis, active seizures, or active bleeding - O: VS reviewed General: Alert but slightly inattentive Eyes: Fundoscopic exam not able to visualize optic disks CV: Heart RRR, no murmur, no carotid bruit Lungs: Clear to auscultation bilaterally, no rhonchi or rales Neuro: - Mental: . Oriented x person/place/date . concentration appears slightly reduced . speech fluency/comprehension normal . memory appears normal . fund of knowledge appear intact - Cranial Nerves: . II: PERRL, VFFTC . III/IV/: EOMI, no nystagmus, normal smooth pursuits, no Ptosis . V: facial sensation intact to LT . VII: face symmetric to eye closure and smile . VIII: hearing intact to conversation . IX/X: uvula raises symmetrically . XI: SCM 5/5 B/L strength . XII: tongue protrudes midline w/nl strength - Motor: . Tone: normal tone in all 4 extremity . Strength: no pronator drift, strength 5/5 throughout (B/L delt, bic, tri, hand dry plasterer helper, hf/he, df/pf) - Reflexes: B/L bic 2/4 - Sensory: all 4 extremity intact to light touch - Coord: MARIANO wnl - Gait: deferred - Labs: 10/09/18- CBC Hct 32.1L Plt 76L, Coags wnl, Chem Na 134L Ca 8.4L, UTOx neg except for alcohol which was 396H - Rads: 10/09/18- Head CT wo: Large subdural hematoma superimposed upon underlying atrophy and probable small vessel disease (I personally visualized the images on 10/10/18) - Assessment: 1. Left Subdural Hematoma likely from head trauma and underlying alcoholism with low platelets - 2. Alcoholism 3. Mental Health Issues 4. Coagulopathy - Plan: - Defer blood pressure guidelines to neurosurgery - Agree with neurosurgery management - Correct coagulopathy as primary team is doing - Try to avoid medications that increase bleeding risk - Agree with [facility] protocol for acute alcohol withdrawal risk - longterm alcohol cessation is critical to improve underlying health - PT/OT/Speech to determine rehab needs - No additional evaluation needed by neurology at this time, neurology will sign off Objective: Vital Signs Temp Pulse Resp BP Pulse Ox 36.4 C 107 H 26 H 137/78 H 93 10/10/18 00:00 10/10/18 11:00 10/10/18 11:00 10/10/18 11:00 10/10/18 11:00 Laboratory Results 10/10/18 05:50 10/10/18 11:55 10/09/18 10/10/18 10/11/18 04:59 05:59 05:59 Intake Total Output Total 100 Balance -100 PT 12.5 SEC (12.0-15.0) 10/09/18 18:04 INR 0.97 (0.83-1.16) 10/09/18 18:04 Allergies/Adverse Reactions: Penicillins Allergy (Verified 06/22/17 14:11) Unknown Sulfa (Sulfonamide Antibiotics) Allergy (Verified 06/22/17 14:11) Rash
[2018-10-10] MEDS ORDERED: PROTOCOL MAGNESIUM 1 DOSE IV PRN (15:21)
[2018-10-10] MEDS ORDERED: PROTOCOL POTASSIUM 1 DOSE MISC PRN (15:21)
[2018-10-10] MEDS ORDERED: POTASSIUM CL 10 MEQ TAB PO ONE (15:22)
[2018-10-10] MEDS ORDERED: MAGNESIUM SULF 1 GM/DEXTROSE 100 ML IV ONE (15:23)
[2018-10-10] MEDS: DIVALPROEX ER 500 MG TAB PO SCH ×2 (16:01→21:30)
--- NOTE | 2018-10-10 17:04 | ASMTCMCOM ---
CM Note CM Note Notes: Pt is a 73 yo M presents with hemmorrhagic stroke. Was found down by his case hardener. Pt is currently on M1 hold. CM met with pt and he said to speak with his friend Laney Kelley [phone]. She is one of Dagoberto's best friends and was who found pt down in his home. 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 Per Laney pt has been drinking at least 20 small airplane bottled of Vodka daily. Pt has completed rehabs in the past including 30 day program at [facility]. Pt refuses to engage in AA groups or other groups. Laney reports pt is not safe at home. He gets intoxicated and falls all the time. Laney reports pt reports he has bipolar disorder but she has never seen him be manic, she feels it's closer to chronic major depression. Laney reports pt's current psychiatrist is Dr. Lane. Laney advocates for [facility] referral to be completed for homebased services and pt be referred to [facility]. Laney reports that pt's brother is coming in to try to collaborate with pt to have him come stay at his house to help maintain sobriety. at this time PT is recommending SNF. Pt has been to [facility] before. Per Laney, pt prefers [facility]. CM to follow. Plan: SNF Date Signed: 10/10/2018 05:04 PM Electronically Signed By:LACI Leon
[2018-10-10] MEDS ORDERED: PROTOCOL CALCIUM 1 DOSE IV PRN (18:08)
[2018-10-10] MEDS ORDERED: PROTOCOL K PHOSPHATE 1 DOSE IV PRN (18:08)
--- NOTE | 2018-10-10 18:31 | GCON ---
[f rep st] CONSULTATION CONTINUATION. ASSESSMENT (CONT'D): 1. History of other medical problems as outlined in the HPI, including psychiatric disease, hypothyr oidism, etc. 2. History of previous pulmonary embolism associated with factor 5 Leiden deficiency. Anticoagulati on is currently contraindicated. SCDs will need to be continued. PLAN AND RECOMMENDATIONS: The patient will be kept in the intensive care unit. Neurologic status wi ll be monitored closely. Further followup CT scans of the head per Neurosurgery. The [facility] protocol will be maintained. I expect he is at high risk for alcohol withdrawal based on his significant shanna gruber history and his blood alcohol level of almost 400 on admission. Currently, he is doing relative ly well, but I suspect this is secondary to continued alcohol on board. Thiamine will be continued. His usual outpatient medications will be continued. Blood pressure will be controlled with nicardip ine for systolics greater than or equal to 140. SCDs will be continued. GI prophylaxis will be init iated. Laboratory will be followed. Chest x-ray will be obtained in the a.m. /[id number]/MODL
[2018-10-10] MEDS: ATENOLOL 25 MG TAB PO SCH (21:49)
[2018-10-10] MEDS: QUEtiapine FUMARATE 50 MG TAB PO SCH (21:52)
[2018-10-10] MEDS: THIAMINE HCL 500 MG in NS 100 ML IV SCH (22:57)
--- NOTE | 2018-10-10 23:37 | HOSPPROG ---
Hospitalist Progress Note Assessment/Plan: Pt seen in a.m in ICU #Subdural Hematoma, Left Frontal -NSG following -Repeat CT pending -No surgical interventions at this time, no mass effect due to atrophy #Hx of Factor V Leiden and multiple PE -No AC at this time #Thrombocytopenia: s/p platelet transfusion given bleed -INR is unremarkable #Alcoholism and Acute ETOH WD -on CIWA #Macrocytosis, check B12, Folate Plan: BP management f/u CT CIWA Off AC total critical care time is 35 mins Subjective: somewhat confused. On CIWA for ETOH WD Objective: Vital Signs Temp Pulse Resp BP Pulse Ox 37.6 C 80 16 108/62 95 10/10/18 16:00 10/10/18 22:00 10/10/18 22:00 10/10/18 22:00 10/10/18 22:00 Laboratory Results 10/10/18 05:50 10/10/18 18:25 10/09/18 10/10/18 10/11/18 04:59 05:59 05:59 Intake Total 2403 Output Total 100 Balance 2303 PT 12.5 SEC (12.0-15.0) 10/09/18 18:04 INR 0.97 (0.83-1.16) 10/09/18 18:04 - Physical Exam Constitutional: chronically ill appearing Eyes: PERRL, EOMI Ears, Nose, Mouth, Throat: moist mucous membranes Cardiovascular: regular rate and rhythym, No edema Respiratory: no respiratory distress, no rales or rhonchi, clear to auscultation Gastrointestinal: normoactive bowel sounds, soft, non-tender abdomen Skin: warm Neurologic: No AAOx3 Psychiatric: interacting appropriately, not anxious Lymph, Heme, Immunologic: no cervical LAD ICD10 Worksheet Patient Problems: Problems Problem Status Onset Anemia Acute Subdural hematoma Acute Thrombocytopenia Acute Abscess of lung with pneumonia Acute Acalculous cholecystitis Acute Alcoholic intoxication Acute C1 cervical fracture Acute Chronic Disease Mgmt/Transitional Care Acute Fall Acute Nausea & vomiting Acute Pneumonia Acute Pneumothorax Acute Ribs, multiple fractures Acute Scapula fracture Acute Syncope and collapse Acute
--- NOTE | 2018-10-11 05:22 | GCON ---
[f rep st] CONSULTATION PULMONARY/CRITICAL CARE CONSULTATION DATE OF CONSULTATION: 10/10/2018 REASON FOR CONSULTATION: Alcohol withdrawal, subdural hematoma. HISTORY: The patient is a 73-year-old chronic alcoholic. He was brought in on an M1 hold placed by the police who found him at his house unable to walk, with multiple bruises. He had fallen off his p orch and had hit his head. He drinks vodka daily, 12 drinks by his report. On admission to the emergency department, he was found to have a left-sided subdural hematoma. This was not felt to be a surgical issue by Neurosurgery. He was admitted to the intensive care unit on t he M1 hold. PAST MEDICAL HISTORY: Remarkable for chronic alcohol abuse, bipolar disease, factor V Leiden deficie ncy, a previous pulmonary embolism, hypothyroidism, and a history of C1 fracture, possibly secondary to falling. Other problems include systemic hypertension and hyperlipidemia. MEDICATIONS: Listed medications on admission included Lipitor, atenolol, aspirin, melatonin, losarta n, Depakote, Topamax, Seroquel, Provigil, Synthroid, Neurontin, Lexapro, and Depakote. DRUG ALLERGIES: Penicillin and sulfa preparations. SOCIAL HISTORY: The patient lives alone. He smoked cigarettes in the past, positive for alcohol as noted above. FAMILY HISTORY: Noncontributory/unobtainable. REVIEW OF SYSTEMS: Unobtainable. PHYSICAL EXAMINATION: GENERAL: Reveals a disheveled gentleman, sitting up in the chair. He respond s quite slowly, looks to voice. HEENT: There is bruising over left side of his face. Pupils are sl ightly unequal, with the left greater than the right. He does track. Mucous membranes are somewhat dry. NECK: Supple and nontender. There is no lymphadenopathy or thyromegaly; no jugular venous dis tention. CHEST: Reveals decreased breath sounds bilaterally. There are no rales; no rhonchi. Expi ratory phase appears to be mildly increased. HEART: Tachycardic. There is a soft systolic murmur; no gallop. ABDOMEN: Soft, nontender. Bowel sounds are present. No Corley catheter is in place. He has been using a urinal. EXTREMITIES: Unremarkable for edema or cords. There is no tenderness. N EUROLOGIC: Appears to be nonfocal. He moves all extremities slowly to command. He is somewhat somn olent, arouses, but responds slowly. DATABASE: CT scan of the head shows a relatively large left subdural hematoma with some left to righ t shift, which is mild. This is unchanged compared to his head CT on admission. Cervical spine CT s can on admission showed no acute changes. There was evidence of previous cervical spine surgery and associated degenerative changes. Laboratory: White blood cell count is 5300, hematocrit 25, platelets 110,000. PT and PTT were lew l on admission. Sodium is 137, potassium 3.3, BUN 19 with creatinine 0.8. CO2 is 26. Glucose is 12 7, calcium 8.2, magnesium 1.7. Blood alcohol on admission was 396. Tox screen, salicylates, and alexis taminophen were all negative. ASSESSMENT: 1. Left-sided subdural hematoma secondary to falling. This is being treated conservatively and [facility] hed at this point in time. Neurosurgery is following the patient. He is doing relatively well. Fol low-up CT scan showed no enlargement in the subdural hematoma. 2. Alcoholism. This is chronic, as well as acute. He came in with a blood alcohol of almost 400. Clinical Castella Withdrawal Assessment has been initiated. He would appear to be at high risk for alcohol withdrawal syndrome. 3. Anemia. Hematocrit is 25. There is no evidence of active bleeding at this time. This is likely secondary to alcohol and nutritional factors. 4. Metabolic: Hypokalemia. He is on replacement protocols. DICTATION ENDS HERE /[id number]/MODL
[2018-10-11 05:56] LABS: PLATELET COUNT 85 10^3/uL (150-400)
[2018-10-11] MEDS: LEVOTHYROXINE 100 MCG TAB PO SCH (06:32)
[2018-10-11] MEDS: LORazepam 2 MG/ML INJ IVP PRN ×6 (06:49→23:54)
[2018-10-11] MEDS ORDERED: POTASSIUM CL 10 MEQ TAB PO ONE ×2 (07:21→20:52)
[2018-10-11] MEDS ORDERED: MAGNESIUM SULF 1 GM/DEXTROSE 100 ML IV ONE (07:22)
[2018-10-11] MEDS: ACETAMINOPHEN 325 MG TAB PO PRN ×2 (08:08→13:53)
[2018-10-11] MEDS: ESCITALOPRAM OXALATE 10 MG TAB PO SCH (08:10)
[2018-10-11] MEDS: ATENOLOL 25 MG TAB PO SCH ×2 (08:10→21:17)
[2018-10-11] MEDS: ATORVASTATIN CALCIUM 20 MG TAB PO SCH (08:10)
[2018-10-11] MEDS: DIVALPROEX ER 500 MG TAB PO SCH ×2 (08:11→21:17)
[2018-10-11] MEDS ORDERED: LACTULOSE 20 GM/30 ML UDCUP PO PRN (10:51)
[2018-10-11] MEDS ORDERED: POLYETHYLENE GLYCOL 3350 17 GM PKT PO PRN (10:51)
[2018-10-11] MEDS ORDERED: MAGNESIUM HYDROXIDE 30 ML UDCUP PO PRN (10:51)
[2018-10-11] MEDS ORDERED: BISACODYL 10 MG SUPP PR PRN (10:51)
--- NOTE | 2018-10-11 13:43 | PDINTPN ---
Travel Ticketing Reviewer Progress Note Assessment/Plan: Assessment/Plan * Alcoholism * Alcohol withdrawals-awake currently. -continue CIWA protocol * Status post fall * Left-sided subdural hematoma -per Neurosurgery * Anemia-stable -follow * Bipolar disease * Factor 5 Leiden * History of PE * Hypothyroidism * VTE prophylaxis * Stress ulcer prophylaxis * PT/OT Subjective: Sitting up in chair. Somewhat somnolent. No current complaints. Objective: Vital Signs Temp Pulse Resp BP Pulse Ox 38.0 C 69 21 H 108/63 97 10/11/18 07:34 10/11/18 12:00 10/11/18 12:00 10/11/18 12:00 10/11/18 12:00 Laboratory Results 10/11/18 05:30 10/11/18 05:30 10/10/18 10/11/18 10/12/18 05:59 05:59 05:59 Intake Total 2403 450 Output Total 100 150 Balance 2303 300 PT 12.5 SEC (12.0-15.0) 10/09/18 18:04 INR 0.97 (0.83-1.16) 10/09/18 18:04 Laboratory Results 10/11/18 05:30 10/11/18 05:30 10/11/18 10/11/18 05:30 05:30 Ionized Calcium 1.19 MMOL/L MMOL/L (1.12 - 1.30) Phosphorus 2.3 mg/dL L mg/dL (2.5 - 4.5) Magnesium 1.8 mg/dL mg/dL (1.6 - 2.3) Chest [id number] by myself. Cardiomegaly is present. Mild fluid overload is present. - Time Spent With Patient Time Spent With Patient: 35 min of time spent with patient, over 1/2 involved with coordination of care or counseling. Case discussed with Nursing Physical Exam - Physical Exam General Appearance: alert EENT: PERRL/EOMI, other (Bruising about left eye) Neck: non-tender Respiratory: chest non-tender, lungs clear Cardiac/Chest: normal peripheral pulses, regular rate, rhythm Abdomen: normal bowel sounds, non-tender, soft Male Genitalia: deferred Rectal: deferred Skin: normal color, warm/dry Extremities: normal range of motion, non-tender, normal inspection, normal capillary refill Neuro/Psych: alert ICD10 Worksheet Patient Problems: Problems Problem Status Onset Anemia Acute Subdural hematoma Acute Thrombocytopenia Acute Abscess of lung with pneumonia Acute Acalculous cholecystitis Acute Alcoholic intoxication Acute C1 cervical fracture Acute Chronic Disease Mgmt/Transitional Care Acute Fall Acute Nausea & vomiting Acute Pneumonia Acute Pneumothorax Acute Ribs, multiple fractures Acute Scapula fracture Acute Syncope and collapse Acute
--- NOTE | 2018-10-11 14:43 | HOSPPROG ---
Hospitalist Progress Note Assessment/Plan: 73 year old male admitted with SDH #Subdural Hematoma, Left Frontal- neurosurgery has evaluated and patient stable , they will sign off unless patient status changes. Repeat CT reviewed and is stable. No surgical management currently. #Hx of Factor V Leiden and multiple PE -No AC at this time #Thrombocytopenia: s/p platelet transfusion given bleed, platelets up to 110 after transfusion but again down to 85. will monitor. -INR is unremarkable #Alcoholism and Acute ETOH WD -on CIWA -CIWA scores still elevated. ativan PRN. #Macrocytosis, check B12, Folate PPX- SCDs, No AC Fluids- IVNS Lytes- mildly hyponatremic if worsens check urine studies. Nutrition- regular Cor- Full Dispo- inpatient SDU Subjective: tired, no other complaints. Objective: Vital Signs Temp Pulse Resp BP Pulse Ox 38.0 C 82 19 129/72 H 93 10/11/18 07:34 10/11/18 13:55 10/11/18 13:55 10/11/18 13:55 10/11/18 13:55 Laboratory Results 10/11/18 05:30 10/11/18 05:30 10/10/18 10/11/18 10/12/18 05:59 05:59 05:59 Intake Total 2403 450 Output Total 100 150 Balance 2303 300 PT 12.5 SEC (12.0-15.0) 10/09/18 18:04 INR 0.97 (0.83-1.16) 10/09/18 18:04 - Physical Exam Constitutional: no apparent distress, appears nourished, not in pain Eyes: PERRL, anicteric sclera, EOMI, other (raccoon eyes) Ears, Nose, Mouth, Throat: moist mucous membranes, hearing normal, ears appear normal, no oral mucosal ulcers Cardiovascular: regular rate and rhythym, no murmur, rub, or gallop Respiratory: no respiratory distress, no rales or rhonchi, clear to auscultation Gastrointestinal: normoactive bowel sounds, soft, non-tender abdomen, no palpable masses Genitourinary: no bladder fullness, no bladder tenderness, no renal bruits Skin: no rashes or abrasions, no fluctuance, no induration Musculoskeletal: generalized weakness Neurologic: sensation intact bilaterally Psychiatric: not anxious, flat affect Lymph, Heme, Immunologic: no cervical LAD, no supraclavicular LAD ICD10 Worksheet Patient Problems: Problems Problem Status Onset Anemia Acute Subdural hematoma Acute Thrombocytopenia Acute Abscess of lung with pneumonia Acute Acalculous cholecystitis Acute Alcoholic intoxication Acute C1 cervical fracture Acute Chronic Disease Mgmt/Transitional Care Acute Fall Acute Nausea & vomiting Acute Pneumonia Acute Pneumothorax Acute Ribs, multiple fractures Acute Scapula fracture Acute Syncope and collapse Acute
--- NOTE | 2018-10-11 18:12 | WOCRNPDOC ---
WOCRN Advanced Assessment Note - Skin Integrity Problem, Advanced Assess Right Ischial Tuberosity Pressure Injury Dressing Type: Allevyn Life Dressing Description: Clean/Dry, Intact Exudate Amount: Scant Exudate Color: Brown Exudate Characteristic(s): Serous Integumentary Issue Intervention: Visualized Under Dressing Pop Wound Tissue: Scarred Wound Bed Color: [place], Yellow Wound Edges: Epithelizing, Attached Site Measurement - Head-to-Toe Length X Width X Depth (cm): 0.5X0.7X0.1 Pressure Injury Stage: Stage 3 Pressure Injury Present on Admit: No Skin Integrity Problem Comment: Healing full thickness wound with scarring pop wound. 80% healed. cleaned with ns and gauze, wound gel applied and recovered with Allevyn. L ischium visualized with no skin breakdown seen. RN's Oswald in room for care. Wound care will follow.
[2018-10-11] MEDS: THIAMINE HCL 500 MG in NS 100 ML IV SCH (21:17)
[2018-10-11] MEDS: QUEtiapine FUMARATE 50 MG TAB PO SCH (21:17)
[2018-10-11] MEDS: SENNOSIDES/DOCUSATE SODIUM TAB PO SCH (21:18)
[2018-10-12] MEDS ORDERED: POTASSIUM CL 10 MEQ TAB PO ONE (07:02)
[2018-10-12] MEDS ORDERED: MAGNESIUM SULF 1 GM/DEXTROSE 100 ML IV ONE (07:02)
[2018-10-12] MEDS: LORazepam 2 MG/ML INJ IVP PRN ×4 (07:56→16:08)
[2018-10-12] MEDS: THIAMINE HCL 100 MG TAB PO SCH (07:57)
[2018-10-12] MEDS: SENNOSIDES/DOCUSATE SODIUM TAB PO SCH ×2 (07:57→20:50)
[2018-10-12] MEDS: ATORVASTATIN CALCIUM 20 MG TAB PO SCH (07:57)
[2018-10-12] MEDS: ATENOLOL 25 MG TAB PO SCH ×2 (07:58→20:50)
[2018-10-12] MEDS: LEVOTHYROXINE 100 MCG TAB PO SCH (07:58)
[2018-10-12] MEDS: ESCITALOPRAM OXALATE 10 MG TAB PO SCH (07:58)
[2018-10-12] MEDS: DIVALPROEX ER 500 MG TAB PO SCH ×2 (07:58→20:50)
[2018-10-12 08:50] LABS: PLATELET COUNT 96 10^3/uL (150-400)
--- NOTE | 2018-10-12 09:09 | PDINTPN ---
It Program Engagement Director Progress Note Assessment/Plan: Assessment/Plan * Alcoholism * Alcohol withdrawals-awake currently. -continue CIWA protocol * Status post fall * Left-sided subdural hematoma -per Neurosurgery * Anemia-stable -follow * Ishial pressure injury- -per wound care * Bipolar disease * Factor 5 Leiden * History of PE * Hypothyroidism * VTE prophylaxis * Stress ulcer prophylaxis * PT/OT Subjective: Somewhat somnolent. Objective: Vital Signs Temp Pulse Resp BP Pulse Ox 37.1 C 78 19 143/84 H 96 10/12/18 07:50 10/12/18 07:50 10/12/18 07:50 10/12/18 07:50 10/12/18 07:50 Laboratory Results 10/12/18 08:35 10/12/18 05:25 10/11/18 10/12/18 10/13/18 05:59 05:59 05:59 Intake Total 2403 2455 Output Total 100 900 Balance 2303 1555 PT 12.5 SEC (12.0-15.0) 10/09/18 18:04 INR 0.97 (0.83-1.16) 10/09/18 18:04 - Time Spent With Patient Time Spent With Patient: 35 min of time spent with patient, over 1/2 involved with coordination of care or counseling. Case discussed with nursing Physical Exam - Physical Exam General Appearance: alert EENT: PERRL/EOMI, other (Left facial bruising) Neck: non-tender, supple Respiratory: chest non-tender, lungs clear, normal breath sounds Cardiac/Chest: normal peripheral pulses, regular rate, rhythm Peripheral Pulses: 2+: carotid (R), carotid (L), femoral (R), femoral (L), dorsalis-pedis (R), dorsalis-pedis (L) Abdomen: normal bowel sounds, non-tender, soft Male Genitalia: deferred Rectal: deferred Skin: normal color, warm/dry Extremities: normal range of motion, non-tender, normal inspection, normal capillary refill Neuro/Psych: alert ICD10 Worksheet Patient Problems: Problems Problem Status Onset Anemia Acute Subdural hematoma Acute Thrombocytopenia Acute Abscess of lung with pneumonia Acute Acalculous cholecystitis Acute Alcoholic intoxication Acute C1 cervical fracture Acute Chronic Disease Mgmt/Transitional Care Acute Fall Acute Nausea & vomiting Acute Pneumonia Acute Pneumothorax Acute Ribs, multiple fractures Acute Scapula fracture Acute Syncope and collapse Acute
[2018-10-12] MEDS ORDERED: K PHOS 10 MMOL in D5W 250 ML IV ONE (12:00)
--- NOTE | 2018-10-12 13:47 | HOSPPROG ---
Hospitalist Progress Note Assessment/Plan: 73 year old male admitted with SDH #Subdural Hematoma, Left Frontal- neurosurgery has evaluated and patient stable , they will sign off unless patient status changes. Repeat CT reviewed and is stable. No surgical management currently. #Hx of Factor V Leiden and multiple PE -No AC at this time #Thrombocytopenia: s/p platelet transfusion given bleed, platelets up after transfusion. -INR is unremarkable #Alcoholism and Acute ETOH WD -on CIWA -CIWA scores still elevated. ativan PRN. #Macrocytosis, check B12, Folate PPX- SCDs, No AC Fluids- IVNS Lytes- mildly hyponatremic if worsens check urine studies. Nutrition- regular Cor- Full Dispo- inpatient ICU for SDH. likely will need placement. I spent 40 minutes of critical care time on the management of this patient Subjective: responds to stimuli but unable to voice complaints. Objective: Vital Signs Temp Pulse Resp BP Pulse Ox 37.1 C 78 28 H 146/82 H 95 10/12/18 07:50 10/12/18 10:56 10/12/18 10:56 10/12/18 10:56 10/12/18 10:56 Laboratory Results 10/12/18 08:35 10/12/18 05:25 10/11/18 10/12/18 10/13/18 05:59 05:59 05:59 Intake Total 2403 2455 350 Output Total 100 900 Balance 2303 1555 350 PT 12.5 SEC (12.0-15.0) 10/09/18 18:04 INR 0.97 (0.83-1.16) 10/09/18 18:04 - Physical Exam Constitutional: no apparent distress Eyes: PERRL, other (raccoon eyes ) Ears, Nose, Mouth, Throat: moist mucous membranes Cardiovascular: regular rate and rhythym, no murmur, rub, or gallop Respiratory: no respiratory distress, no rales or rhonchi Gastrointestinal: normoactive bowel sounds, soft, non-tender abdomen Genitourinary: no bladder fullness Skin: warm, normal color Musculoskeletal: generalized weakness Neurologic: other (responds to stimuli, remains very confused. ) Psychiatric: encephalopathic Lymph, Heme, Immunologic: no cervical LAD ICD10 Worksheet Patient Problems: Problems Problem Status Onset Anemia Acute Subdural hematoma Acute Thrombocytopenia Acute Abscess of lung with pneumonia Acute Acalculous cholecystitis Acute Alcoholic intoxication Acute C1 cervical fracture Acute Chronic Disease Mgmt/Transitional Care Acute Fall Acute Nausea & vomiting Acute Pneumonia Acute Pneumothorax Acute Ribs, multiple fractures Acute Scapula fracture Acute Syncope and collapse Acute
[2018-10-12] MEDS: LOSARTAN POTASSIUM 50 MG TAB PO SCH (14:22)
[2018-10-12] MEDS: ACETAMINOPHEN 325 MG TAB PO PRN (16:19)
[2018-10-12] MEDS: DEXMEDETOMIDINE HCL 400 MCG in NS 100 ML IV SCH (16:42)
[2018-10-12] MEDS: POTASSIUM Cl (KCl) 100 ML IV SCH ×3 (18:45→21:44)
[2018-10-12] MEDS: LORazepam 2 MG/ML INJ IVP SCH (18:54)
[2018-10-12] MEDS ORDERED: THIAMINE HCL 100 MG TAB PO SCH (20:31)
[2018-10-12] MEDS: QUEtiapine FUMARATE 50 MG TAB PO SCH (20:50)
[2018-10-12] MEDS: THIAMINE HCL 500 MG in NS 100 ML IV SCH (21:44)
[2018-10-13] MEDS: LORazepam 2 MG/ML INJ IVP SCH ×4 (00:15→18:15)
[2018-10-13] MEDS: NS 1,000 ML IV SCH ×2 (00:35→06:34)
[2018-10-13] MEDS: LEVOTHYROXINE 100 MCG TAB PO SCH (05:27)
[2018-10-13] MEDS: DEXMEDETOMIDINE HCL 400 MCG in NS 100 ML IV SCH (05:34)
[2018-10-13 06:52] LABS: PLATELET COUNT 91 10^3/uL (150-400)
[2018-10-13] MEDS: ATORVASTATIN CALCIUM 20 MG TAB PO SCH (09:00)
[2018-10-13] MEDS: SENNOSIDES/DOCUSATE SODIUM TAB PO SCH ×2 (09:00→20:26)
--- NOTE | 2018-10-13 09:40 | PDINTPN ---
Pull Socket Assembler Progress Note Assessment/Plan: Assessment/Plan * Alcoholism * Alcohol withdrawals-minimal improvement -continue [facility] protocol * Status post fall * Left-sided subdural hematoma -per Neurosurgery * Anemia-hemoglobin hematocrit remain stable -follow * Ishial pressure injury- -per wound care * Bipolar disease * Factor 5 Leiden * History of PE * Hypothyroidism * VTE prophylaxis * Stress ulcer prophylaxis * PT/OT Subjective: Somnolent Objective: Vital Signs Temp Pulse Resp BP Pulse Ox 37.7 C 67 28 H 113/72 94 10/13/18 07:42 10/13/18 07:42 10/13/18 07:42 10/13/18 07:42 10/13/18 07:42 Laboratory Results 10/13/18 06:26 10/13/18 06:26 10/12/18 10/13/18 10/14/18 05:59 05:59 05:59 Intake Total 2455 2168.6 Output Total 900 530 Balance 1555 1638.6 PT 12.5 SEC (12.0-15.0) 10/09/18 18:04 INR 0.97 (0.83-1.16) 10/09/18 18:04 Laboratory Results 10/13/18 06:26 10/13/18 06:26 10/13/18 10/13/18 10/13/18 08:45 06:26 06:26 Calcium 8.5 mg/dL mg/dL (8.5 - 10.4) Ionized Calcium 1.14 MMOL/L MMOL/L (1.12 - 1.30) Phosphorus 3.5 mg/dL mg/dL (2.5 - 4.5) Magnesium 1.4 mg/dL L mg/dL (1.6 - 2.3) Total Bilirubin 1.6 mg/dL H mg/dL (0.1 - 1.4) AST 43 IU/L IU/L (17 - 59) ALT 52 IU/L IU/L (21 - 72) Alkaline Phosphatase 90 IU/L IU/L (38 - 126) Total Protein 5.1 g/dL L g/dL (6.3 - 8.2) Albumin 2.5 g/dL L g/dL (3.5 - 5.0) Urine Color Urine Appearance Urine pH Ur Specific [place] Urine Protein Urine Ketones Urine Blood Urine Nitrate Urine Bilirubin Urine Urobilinogen Ur Leukocyte Esterase Ur Random Sodium 79 mEq/L mEq/L (30 - 90) Urine Glucose 10/13/18 00:20 Calcium Ionized Calcium Phosphorus Magnesium Total Bilirubin AST ALT Alkaline Phosphatase Total Protein Albumin Urine Color YELLOW Urine Appearance CLEAR Urine pH 8.0 H (5.0 - 7.5) Ur Specific [place] 1.015 (1.002 - 1.030) Urine Protein NEGATIVE Urine Ketones TRACE H Urine Blood NEGATIVE Urine Nitrate NEGATIVE Urine Bilirubin NEGATIVE Urine Urobilinogen 4.0 EU H EU Ur Leukocyte Esterase NEGATIVE Ur Random Sodium Urine Glucose NEGATIVE Chest [id number] by myself. Cardiomegaly is present. Left basilar infiltrate has improved - Time Spent With Patient Time Spent With Patient: 35 min of time spent with patient, over 1/2 involved with coordination of care or counseling. Case discussed with nursing Physical Exam - Physical Exam General Appearance: other (Somnolent), No alert EENT: PERRL/EOMI Neck: non-tender, supple Respiratory: crackles (Few basilar ), prolonged expiration, No wheezing Cardiac/Chest: normal peripheral pulses, regular rate, rhythm, systolic murmur Peripheral Pulses: 2+: carotid (R), carotid (L), femoral (R), femoral (L), dorsalis-pedis (R), dorsalis-pedis (L) Abdomen: normal bowel sounds, non-tender, soft Male Genitalia: deferred Rectal: deferred Skin: warm/dry Extremities: non-tender Neuro/Psych: No alert ICD10 Worksheet Patient Problems: Problems Problem Status Onset Anemia Acute Subdural hematoma Acute Thrombocytopenia Acute Abscess of lung with pneumonia Acute Acalculous cholecystitis Acute Alcoholic intoxication Acute C1 cervical fracture Acute Chronic Disease Mgmt/Transitional Care Acute Fall Acute Nausea & vomiting Acute Pneumonia Acute Pneumothorax Acute Ribs, multiple fractures Acute Scapula fracture Acute Syncope and collapse Acute
[2018-10-13] MEDS ORDERED: MAGNESIUM SULF 2 GM/WATER 50 ML IV ONE (10:01)
[2018-10-13] MEDS ORDERED: POTASSIUM CL 10 MEQ TAB PO ONE ×2 (10:02→19:59)
[2018-10-13] MEDS: LOSARTAN POTASSIUM 50 MG TAB PO SCH (10:28)
[2018-10-13] MEDS: ATENOLOL 25 MG TAB PO SCH ×2 (10:29→20:26)
[2018-10-13] MEDS: ESCITALOPRAM OXALATE 10 MG TAB PO SCH (10:31)
[2018-10-13] MEDS: THIAMINE HCL 100 MG TAB PO SCH (10:44)
[2018-10-13] MEDS: DIVALPROEX ER 500 MG TAB PO SCH ×2 (10:47→20:26)
--- NOTE | 2018-10-13 20:10 | ASMTCMCOM ---
CM Note CM Note Notes: Pt discussed in multidiscipline rounds. M1 hold has ended. PT recommends a SNF. [facility]hab ([facility]) aware and monitoring when medically cleared for discharge. CM will continue to monitor needs. Plan: SNF/IP Rehab Date Signed: 10/13/2018 08:10 PM Electronically Signed By:Connie Reyez
[2018-10-13] MEDS: THIAMINE HCL 500 MG in NS 100 ML IV SCH (20:25)
[2018-10-13] MEDS: QUEtiapine FUMARATE 50 MG TAB PO SCH (20:26)
[2018-10-14] MEDS: LORazepam 2 MG/ML INJ IVP SCH ×2 (00:32→05:12)
[2018-10-14] MEDS: LEVOTHYROXINE 100 MCG TAB PO SCH (05:08)
--- NOTE | 2018-10-14 09:15 | PDINTPN ---
Geopolitics Teacher Progress Note Assessment/Plan: Assessment/Plan * Alcoholism * Alcohol withdrawals-minimal improvement -continue CIWY protocol * Status post fall * Left-sided subdural hematoma -per Neurosurgery * Anemia-hemoglobin hematocrit remain stable -follow * Ishial pressure injury- -per wound care * Bipolar disease * Factor 5 Leiden-with history of PE * Hypothyroidism * VTE prophylaxis * Stress ulcer prophylaxis * PT/OT * Disposition-no Plan currently. Very slow to improve Subjective: Somnolent. Poorly arousable. Objective: Vital Signs Temp Pulse Resp BP Pulse Ox 36.5 C 60 18 173/97 H 96 10/14/18 08:00 10/14/18 08:00 10/14/18 08:00 10/14/18 08:00 10/14/18 08:00 Laboratory Results 10/13/18 06:26 10/14/18 05:46 10/13/18 10/14/18 10/15/18 05:59 05:59 05:59 Intake Total 2168.6 1321.1 Output Total 530 500 Balance 1638.6 821.1 PT 12.5 SEC (12.0-15.0) 10/09/18 18:04 INR 0.97 (0.83-1.16) 10/09/18 18:04 Laboratory Results 10/13/18 06:26 10/14/18 05:46 10/14/18 10/14/18 05:46 05:46 Potassium 3.4 mEq/L L mEq/L (3.5 - 5.2) Ionized Calcium 1.16 MMOL/L MMOL/L (1.12 - 1.30) Phosphorus 3.2 mg/dL mg/dL (2.5 - 4.5) Magnesium 1.6 mg/dL mg/dL (1.6 - 2.3) Chest [id number] by myself. Cardiomegaly present. Mild increased cephalization of flow - Time Spent With Patient Time Spent With Patient: 35 min of time spent with patient, over 1/2 involved coordination of care or counseling. Case discussed with nursing Physical Exam - Physical Exam General Appearance: other (Somnolent), No alert EENT: PERRL/EOMI Neck: non-tender, supple Respiratory: chest non-tender, lungs clear, normal breath sounds Cardiac/Chest: normal peripheral pulses, regular rate, rhythm Peripheral Pulses: 2+: carotid (R), carotid (L), femoral (R), femoral (L), dorsalis-pedis (R), dorsalis-pedis (L) Abdomen: normal bowel sounds, non-tender, soft Male Genitalia: deferred Rectal: deferred Skin: warm/dry Extremities: non-tender Neuro/Psych: No alert ICD10 Worksheet Patient Problems: Problems Problem Status Onset Anemia Acute Subdural hematoma Acute Thrombocytopenia Acute Abscess of lung with pneumonia Acute Acalculous cholecystitis Acute Alcoholic intoxication Acute C1 cervical fracture Acute Chronic Disease Mgmt/Transitional Care Acute Fall Acute Nausea & vomiting Acute Pneumonia Acute Pneumothorax Acute Ribs, multiple fractures Acute Scapula fracture Acute Syncope and collapse Acute
[2018-10-14 10:16] LABS: PLATELET COUNT 107 10^3/uL (150-400)
[2018-10-14] MEDS ORDERED: POTASSIUM CL 10 MEQ TAB PO ONE ×2 (10:21→17:30)
[2018-10-14] MEDS ORDERED: MAGNESIUM SULF 1 GM/DEXTROSE 100 ML IV ONE (10:22)
[2018-10-14] MEDS: ATENOLOL 25 MG TAB PO SCH ×2 (10:55→19:36)
[2018-10-14] MEDS: DIVALPROEX ER 500 MG TAB PO SCH ×2 (10:57→19:36)
[2018-10-14] MEDS: ATORVASTATIN CALCIUM 20 MG TAB PO SCH (10:58)
[2018-10-14] MEDS: THIAMINE HCL 100 MG TAB PO SCH (11:10)
[2018-10-14] MEDS: LOSARTAN POTASSIUM 50 MG TAB PO SCH (11:10)
[2018-10-14] MEDS: SENNOSIDES/DOCUSATE SODIUM TAB PO SCH ×2 (11:11→20:54)
[2018-10-14] MEDS: ESCITALOPRAM OXALATE 10 MG TAB PO SCH (11:12)
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
--- NOTE | 2018-10-14 16:12 | ASMTCMCOM ---
CM Note CM Note Notes: Pt Discussed in Rounds. Pt is lethargic today and has not been given Ativan because of it. I contacted Rodney (Brother a retired RN) . He does not have a choice of a SNF in the [facility]. Rodney said that Dagoberto has been in all of them. Rodney would like him to come stay with him, if Pt agrees. [facility] IP rehab could possibly take him if Pt agrees to do the therapy. PLAN: Discharge to SNF/IP Rehab Date Signed: 10/14/2018 04:12 PM Electronically Signed By:Connie Reyez
[2018-10-14] MEDS: QUEtiapine FUMARATE 50 MG TAB PO SCH (19:35)
[2018-10-14] MEDS: LORazepam 2 MG/ML INJ IVP PRN ×2 (19:40→20:52)
--- NOTE | 2018-10-14 21:10 | HOSPPROG ---
Hospitalist Progress Note Assessment/Plan: 73 year old male admitted with SDH and etoh withdrawal. #Subdural Hematoma, Left Frontal- neurosurgery has evaluated and patient stable , they signed off unless patient status changes. Repeat CT reviewed and is stable. No surgical management currently. #Hx of Factor V Leiden and multiple PE -No AC at this time #Thrombocytopenia: s/p platelet transfusion given bleed, platelets up after transfusion. -INR is unremarkable #Alcoholism and Acute ETOH WD -on CIWA -CIWA scores still elevated. ativan PRN. #Macrocytosis, check B12, Folate PPX- SCDs, No AC Fluids- IVNS Lytes- mildly hyponatremic if worsens check urine studies. Nutrition- regular Cor- Full Dispo- inpatient ICU for SDH. likely will need placement. Subjective: responds when prompted but then falls back asleep. seems comfortable. Objective: Vital Signs Temp Pulse Resp BP Pulse Ox 36.6 C 80 23 H 125/72 H 98 10/14/18 19:20 10/14/18 19:36 10/14/18 19:20 10/14/18 19:36 10/14/18 19:20 Laboratory Results 10/14/18 09:55 10/14/18 17:05 10/13/18 10/14/18 10/15/18 05:59 05:59 05:59 Intake Total 2168.6 1321.1 719 Output Total 530 500 730 Balance 1638.6 821.1 -11 PT 12.5 SEC (12.0-15.0) 10/09/18 18:04 INR 0.97 (0.83-1.16) 10/09/18 18:04 - Physical Exam Constitutional: no apparent distress, appears nourished, not in pain Eyes: PERRL, anicteric sclera, EOMI Ears, Nose, Mouth, Throat: moist mucous membranes Cardiovascular: regular rate and rhythym Respiratory: no respiratory distress Gastrointestinal: normoactive bowel sounds Genitourinary: no bladder fullness Skin: warm Musculoskeletal: generalized weakness Neurologic: other (lethargic and confused. no focal deficits observed. ) Psychiatric: encephalopathic Lymph, Heme, Immunologic: no cervical LAD ICD10 Worksheet Patient Problems: Problems Problem Status Onset Anemia Acute Subdural hematoma Acute Thrombocytopenia Acute Abscess of lung with pneumonia Acute Acalculous cholecystitis Acute Alcoholic intoxication Acute C1 cervical fracture Acute Chronic Disease Mgmt/Transitional Care Acute Fall Acute Nausea & vomiting Acute Pneumonia Acute Pneumothorax Acute Ribs, multiple fractures Acute Scapula fracture Acute Syncope and collapse Acute
[2018-10-15] MEDS: LORazepam 2 MG/ML INJ IVP PRN ×2 (00:26→09:44)
[2018-10-15] MEDS: ACETAMINOPHEN 325 MG TAB PO PRN (05:17)
[2018-10-15] MEDS: LEVOTHYROXINE 100 MCG TAB PO SCH (05:17)
[2018-10-15] MEDS ORDERED: POTASSIUM CL 10 MEQ TAB PO ONE ×2 (07:51→22:09)
[2018-10-15] MEDS: LOSARTAN POTASSIUM 50 MG TAB PO SCH (08:39)
[2018-10-15] MEDS: ESCITALOPRAM OXALATE 10 MG TAB PO SCH (08:39)
[2018-10-15] MEDS: DIVALPROEX ER 500 MG TAB PO SCH ×2 (08:39→21:51)
[2018-10-15] MEDS: ATORVASTATIN CALCIUM 20 MG TAB PO SCH (08:41)
[2018-10-15] MEDS: THIAMINE HCL 100 MG TAB PO SCH (08:41)
[2018-10-15] MEDS: SENNOSIDES/DOCUSATE SODIUM TAB PO SCH ×2 (08:41→21:51)
[2018-10-15] MEDS: ATENOLOL 25 MG TAB PO SCH ×2 (08:41→21:51)
[2018-10-15] MEDS ORDERED: MAGNESIUM SULF 1 GM/DEXTROSE 100 ML IV ONE (08:58)
--- NOTE | 2018-10-15 09:16 | PDINTPN ---
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 Sitting up in chair. Conversant. -continue CIWA protocol * Status post fall * Left-sided subdural hematoma -per Neurosurgery * Anemia-hemoglobin hematocrit remain stable -follow * Ishial pressure injury- -per wound care * Bipolar disease * Factor 5 Leiden-with history of PE * Hypothyroidism * VTE prophylaxis * Stress ulcer prophylaxis * PT/OT-unsteady on his feet -continue aggressive treatment * Disposition-no Plan currently. Very slow to improve Subjective: Sitting up in chair eating breakfast. More alert and conversant. Still seem somewhat confused though. Objective: Vital Signs Temp Pulse Resp BP Pulse Ox 37.0 C 71 22 H 161/87 H 95 10/15/18 08:00 10/15/18 08:00 10/15/18 08:00 10/15/18 08:00 10/15/18 08:00 Laboratory Results 10/14/18 09:55 10/15/18 06:15 10/14/18 10/15/18 10/16/18 05:59 05:59 05:59 Intake Total 1321.1 1044 Output Total 500 730 100 Balance 821.1 314 -100 PT 12.5 SEC (12.0-15.0) 10/09/18 18:04 INR 0.97 (0.83-1.16) 10/09/18 18:04 - Time Spent With Patient Time Spent With Patient: 35 min of time spent with patient, over 1/2 involved with coordination of care or counseling. Case discussed with nursing Physical Exam - Physical Exam General Appearance: alert EENT: PERRL/EOMI Neck: non-tender, supple Respiratory: rhonchi (Few basilar), No respiratory distress, No wheezing Cardiac/Chest: normal peripheral pulses, regular rate, rhythm Peripheral Pulses: 2+: carotid (R), carotid (L), femoral (R), femoral (L), dorsalis-pedis (R), dorsalis-pedis (L) Abdomen: normal bowel sounds, non-tender, soft Male Genitalia: deferred Rectal: deferred Skin: normal color, warm/dry Extremities: non-tender Neuro/Psych: alert ICD10 Worksheet Patient Problems: Problems Problem Status Onset Anemia Acute Subdural hematoma Acute Thrombocytopenia Acute Abscess of lung with pneumonia Acute Acalculous cholecystitis Acute Alcoholic intoxication Acute C1 cervical fracture Acute Chronic Disease Mgmt/Transitional Care Acute Fall Acute Nausea & vomiting Acute Pneumonia Acute Pneumothorax Acute Ribs, multiple fractures Acute Scapula fracture Acute Syncope and collapse Acute
--- NOTE | 2018-10-15 13:54 | HOSPPROG ---
Hospitalist Progress Note Assessment/Plan: 73 year old male admitted with SDH and etoh withdrawal. #Subdural Hematoma, Left Frontal- neurosurgery has evaluated and patient stable , they signed off unless patient status changes. Repeat CT reviewed and is stable. No surgical management currently. #Hx of Factor V Leiden and multiple PE -No AC at this time #Thrombocytopenia: s/p platelet transfusion given bleed, platelets up after transfusion. -INR is unremarkable -cont monitor cbc #Alcoholism and Acute ETOH WD -on CIWA -CIWA scores still elevated. ativan PRN. Hyponatremia- sodium trending down, not receiving much fluid. Will increase NS to 75 and limit free water. repeat in am. #Macrocytosis, check B12, Folate PPX- SCDs, No AC Fluids- IVNS Lytes- mildly hyponatremic if worsens check urine studies. Nutrition- regular Cor- Full Dispo- SDU for SDH, will likely need placement. Subjective: no complaints. confused but comfortable. Objective: Vital Signs Temp Pulse Resp BP Pulse Ox 36.4 C 76 19 143/78 H 94 10/15/18 11:30 10/15/18 11:30 10/15/18 11:30 10/15/18 11:30 10/15/18 11:30 Laboratory Results 10/14/18 09:55 10/15/18 06:15 10/14/18 10/15/18 10/16/18 05:59 05:59 05:59 Intake Total 1321.1 1044 Output Total 500 730 100 Balance 821.1 314 -100 PT 12.5 SEC (12.0-15.0) 10/09/18 18:04 INR 0.97 (0.83-1.16) 10/09/18 18:04 - Physical Exam Constitutional: no apparent distress, appears nourished, not in pain Eyes: PERRL, anicteric sclera, EOMI Ears, Nose, Mouth, Throat: moist mucous membranes, hearing normal, ears appear normal, no oral mucosal ulcers Cardiovascular: regular rate and rhythym, no murmur, rub, or gallop Respiratory: no respiratory distress, no rales or rhonchi, clear to auscultation Gastrointestinal: normoactive bowel sounds, soft, non-tender abdomen, no palpable masses Genitourinary: no bladder fullness, no bladder tenderness, no renal bruits Skin: no rashes or abrasions, no fluctuance, no induration Musculoskeletal: generalized weakness Neurologic: sensation intact bilaterally, weakness, other Psychiatric: encephalopathic Lymph, Heme, Immunologic: no cervical LAD ICD10 Worksheet Patient Problems: Problems Problem Status Onset Anemia Acute Subdural hematoma Acute Thrombocytopenia Acute Abscess of lung with pneumonia Acute Acalculous cholecystitis Acute Alcoholic intoxication Acute C1 cervical fracture Acute Chronic Disease Mgmt/Transitional Care Acute Fall Acute Nausea & vomiting Acute Pneumonia Acute Pneumothorax Acute Ribs, multiple fractures Acute Scapula fracture Acute Syncope and collapse Acute
[2018-10-15] MEDS: QUEtiapine FUMARATE 50 MG TAB PO SCH (21:51)
[2018-10-15] MEDS: GABAPENTIN 400 MG CAP PO PRN (22:22)
[2018-10-16] MEDS: LEVOTHYROXINE 100 MCG TAB PO SCH (06:02)
[2018-10-16] MEDS: NS 1,000 ML IV SCH (06:15)
--- NOTE | 2018-10-16 12:24 | PDINTPN ---
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 Sitting up in chair. Conversant. -continue CIWA protocol * Status post fall * Left-sided subdural hematoma -per Neurosurgery * Anemia-hemoglobin hematocrit remain stable -follow * Ishial pressure injury- -per wound care * Bipolar disease * Factor 5 Leiden-with history of PE * Hypothyroidism * VTE prophylaxis * Stress ulcer prophylaxis * PT/OT-unsteady on his feet -ambulate short distance with PT * Disposition-no Plan currently. -continues very slow improvement Subjective: Resting comfortably. No current complaints. More conversant today. still has somnolence. Objective: Vital Signs Temp Pulse Resp BP Pulse Ox 36.8 C 68 18 118/58 L 96 10/16/18 04:00 10/16/18 07:48 10/16/18 07:48 10/16/18 07:48 10/16/18 07:48 Laboratory Results 10/14/18 09:55 10/16/18 05:38 10/15/18 10/16/18 10/17/18 05:59 05:59 05:59 Intake Total 1044 2094 Output Total 730 100 Balance 314 1994 PT 12.5 SEC (12.0-15.0) 10/09/18 18:04 INR 0.97 (0.83-1.16) 10/09/18 18:04 - Time Spent With Patient Time Spent With Patient: 35 min of time spent with patient, over 1/2 involved coordination of care counseling. Case discussed with nursing Physical Exam - Physical Exam General Appearance: alert EENT: PERRL/EOMI Neck: non-tender, supple Respiratory: rhonchi (Few), No respiratory distress, No wheezing Cardiac/Chest: normal peripheral pulses, regular rate, rhythm Peripheral Pulses: 2+: carotid (R), carotid (L), femoral (R), femoral (L), dorsalis-pedis (R), dorsalis-pedis (L) Abdomen: normal bowel sounds, non-tender, soft Male Genitalia: deferred Rectal: deferred Skin: warm/dry Extremities: non-tender Neuro/Psych: alert ICD10 Worksheet Patient Problems: Problems Problem Status Onset Anemia Acute Subdural hematoma Acute Thrombocytopenia Acute Abscess of lung with pneumonia Acute Acalculous cholecystitis Acute Alcoholic intoxication Acute C1 cervical fracture Acute Chronic Disease [facility]/Transitional Care Acute Fall Acute Nausea & vomiting Acute Pneumonia Acute Pneumothorax Acute Ribs, multiple fractures Acute Scapula fracture Acute Syncope and collapse Acute
[2018-10-16] MEDS: DIVALPROEX ER 500 MG TAB PO SCH ×2 (12:33→20:46)
[2018-10-16] MEDS: SENNOSIDES/DOCUSATE SODIUM TAB PO SCH ×2 (12:34→20:47)
[2018-10-16] MEDS: ATORVASTATIN CALCIUM 20 MG TAB PO SCH (12:34)
[2018-10-16] MEDS: ESCITALOPRAM OXALATE 10 MG TAB PO SCH (12:34)
[2018-10-16] MEDS: ATENOLOL 25 MG TAB PO SCH ×2 (12:34→20:46)
[2018-10-16] MEDS: LOSARTAN POTASSIUM 50 MG TAB PO SCH (12:39)
[2018-10-16] MEDS: THIAMINE HCL 100 MG TAB PO SCH (12:39)
[2018-10-16] MEDS ORDERED: LORazepam 0.5 MG TAB PO PRN (13:40)
[2018-10-16] MEDS ORDERED: POTASSIUM CL 10 MEQ TAB PO ONE (13:58)
--- NOTE | 2018-10-16 15:23 | HOSPPROG ---
Hospitalist Progress Note Assessment/Plan: 73 year old male with hx of bipolar d/o and etoh abuse admitted with SDH and etoh withdrawal. #Subdural Hematoma, Left Frontotemporal- neurosurgery has evaluated and patient stable, no indication for surgery they signed off unless patient status changes. Repeat CT reviewed and is stable. No surgical management currently. # metabolic encephalopathy: overall improving however patient remains very somnolent and having memory issues which is different from usual baseline # Factor V Leiden and multiple PE: holding AC given acute head bleed, will need to discuss with NSG when/if we can consider resuming AC # acute alcohol w/d and abuse: has been on CIWA however scores most recently very low, most recent CIWA 2, continue to encourage cessation #Thrombocytopenia: s/p platelet transfusion given bleed, platelets have been stable # hyponatremia: has been milldy low, james SIADH given acute head bleed, will repeat in am #Macrocytosis: in setting of chronic etoh abuse and likely due to same # bipolar d/o: has had severe psychiatric issues in the past, will continue op meds and patient to f/u with usual care after dc # deconditioning: patient quite weak and not safe for dc home independently, continue to work with pt/ot, may need snf PPX- SCDs, No AC FC Dispo- IP placement, will possibly require placement Subjective: no significant overnight events, patient is awake and wonders when he can go home Objective: Vital Signs Temp Pulse Resp BP Pulse Ox 36.8 C 86 14 122/72 H 100 10/16/18 12:32 10/16/18 12:32 10/16/18 12:32 10/16/18 12:32 10/16/18 12:32 Laboratory Results 10/14/18 09:55 10/16/18 05:38 10/15/18 10/16/18 10/17/18 05:59 05:59 05:59 Intake Total 1044 2094 Output Total 730 100 Balance 314 1993 PT 12.5 SEC (12.0-15.0) 10/09/18 18:04 INR 0.97 (0.83-1.16) 10/09/18 18:04 somnolent, unkempt bruising around the eye poor dentition rrr no mrg cta dec at bases soft nt nd no cce warm dry well perfused not oriented, somnolent, thought process not linear ICD10 Worksheet Patient Problems: Problems Problem Status Onset Syncope and collapse Acute Pneumonia Acute Abscess of lung with pneumonia Acute Alcoholic intoxication Acute C1 cervical fracture Acute Chronic Disease Mgmt/Transitional Care Acute Fall Acute Ribs, multiple fractures Acute Pneumothorax Acute Scapula fracture Acute Nausea & vomiting Acute Acalculous cholecystitis Acute Thrombocytopenia Acute Anemia Acute Subdural hematoma Acute
[2018-10-16] MEDS: QUEtiapine FUMARATE 50 MG TAB PO SCH (20:46)
[2018-10-17] MEDS: LEVOTHYROXINE 100 MCG TAB PO SCH (05:54)
[2018-10-17 06:01] LABS: PLATELET COUNT 195 10^3/uL (150-400)
[2018-10-17] MEDS: DIVALPROEX ER 500 MG TAB PO SCH ×2 (08:17→22:05)
[2018-10-17] MEDS: ESCITALOPRAM OXALATE 10 MG TAB PO SCH (08:18)
[2018-10-17] MEDS: ACETAMINOPHEN 325 MG TAB PO PRN (08:19)
[2018-10-17] MEDS: ATENOLOL 25 MG TAB PO SCH ×2 (08:19→22:05)
[2018-10-17] MEDS: THIAMINE HCL 100 MG TAB PO SCH (08:19)
[2018-10-17] MEDS: ATORVASTATIN CALCIUM 20 MG TAB PO SCH (08:19)
[2018-10-17] MEDS: SENNOSIDES/DOCUSATE SODIUM TAB PO SCH ×2 (08:19→22:04)
[2018-10-17] MEDS: LOSARTAN POTASSIUM 50 MG TAB PO SCH (08:19)
[2018-10-17] MEDS: LORazepam 2 MG/ML INJ IVP PRN ×2 (08:44→22:24)
[2018-10-17] MEDS ORDERED: POTASSIUM CL 10 MEQ TAB PO ONE (09:42)
--- NOTE | 2018-10-17 09:56 | PDINTPN ---
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 Sitting up in chair. Conversant. -continue CIWA protocol * Status post fall * Left-sided subdural hematoma -per Neurosurgery * Anemia-hemoglobin hematocrit remain stable -follow * Ishial pressure injury- -per wound care * Bipolar disease * Factor 5 Leiden-with history of PE * Hypothyroidism * VTE prophylaxis * Stress ulcer prophylaxis * PT/OT-unsteady on his feet -ambulate short distance with PT * Disposition-transfer to med surg -continues very slow improvement Subjective: Sitting up in chair. Resting comfortably. Objective: Vital Signs Temp Pulse Resp BP Pulse Ox 37.3 C 82 9 L 177/87 H 96 10/17/18 00:00 10/17/18 08:19 10/17/18 04:00 10/17/18 08:19 10/17/18 04:00 Laboratory Results 10/17/18 05:15 10/17/18 05:15 10/16/18 10/17/18 10/18/18 05:59 05:59 05:59 Intake Total 2094 950 Output Total 100 3 Balance 1994 947 PT 12.5 SEC (12.0-15.0) 10/09/18 18:04 INR 0.97 (0.83-1.16) 10/09/18 18:04 - Time Spent With Patient Time Spent With Patient: 35 min of time spent with patient, over 1/2 involved with coordination of care counseling. Case discussed with nursing Physical Exam - Physical Exam General Appearance: alert EENT: PERRL/EOMI Neck: non-tender, supple Respiratory: chest non-tender, lungs clear, normal breath sounds Cardiac/Chest: normal peripheral pulses, regular rate, rhythm Peripheral Pulses: 2+: carotid (R), carotid (L), femoral (R), femoral (L), dorsalis-pedis (R), dorsalis-pedis (L) Abdomen: normal bowel sounds, non-tender, soft Male Genitalia: deferred Rectal: deferred Skin: warm/dry Extremities: non-tender, normal inspection, normal capillary refill Neuro/Psych: alert ICD10 Worksheet Patient Problems: Problems Problem Status Onset Anemia Acute Subdural hematoma Acute Thrombocytopenia Acute Abscess of lung with pneumonia Acute Acalculous cholecystitis Acute Alcoholic intoxication Acute C1 cervical fracture Acute Chronic Disease Mgmt/Transitional Care Acute Fall Acute Nausea & vomiting Acute Pneumonia Acute Pneumothorax Acute Ribs, multiple fractures Acute Scapula fracture Acute Syncope and collapse Acute
--- NOTE | 2018-10-17 12:35 | ASMTCMCOM ---
CM Note CM Note Notes: Pt transfered to [facility] today. CM met with pt at length who reports he is interested in obtaining more information about quitting ETOH after a SNF stay. As of PT note on 10/16 PT is recommending Inpatient Rehab, not SNF. CM to follow and keep pt and his family updated. Plan: SNF vs inpatient rehab Date Signed: 10/17/2018 12:34 PM Electronically Signed By:LACI Leon
--- NOTE | 2018-10-17 15:53 | HOSPPROG ---
Hospitalist Progress Note Assessment/Plan: 73 year old male with hx of bipolar d/o and etoh abuse admitted with SDH and etoh withdrawal. #Subdural Hematoma, Left Frontotemporal- neurosurgery has evaluated and patient stable, no indication for surgery they signed off unless patient status changes. Repeat CT reviewed and is stable. No surgical management currently. # metabolic encephalopathy: overall improving however patient remains very somnolent and having memory issues which is different from usual baseline # Factor V Leiden and multiple PE: holding AC given acute head bleed, will need to discuss with NSG when/if we can consider resuming AC prior to discharge, holding for now # acute alcohol w/d and abuse: has been on CIWA however scores most recently very low, most recent CIWA 2, continue to encourage cessation #Thrombocytopenia: s/p platelet transfusion given bleed, platelets have been stable # hyponatremia: has been milldy low, james SIADH given acute head bleed, will repeat in am #Macrocytosis: in setting of chronic etoh abuse and likely due to same # bipolar d/o: has had severe psychiatric issues in the past, will continue op meds and patient to f/u with usual care after dc # deconditioning: patient quite weak and not safe for dc home independently, continue to work with pt/ot, may need snf PPX- SCDs, No AC FC Dispo- IP , will possibly require placement Subjective: no significant overnight events, patient remains somnolent and memory poor, still quite weak Objective: Vital Signs Temp Pulse Resp BP Pulse Ox 36.5 C 68 17 130/72 H 100 10/17/18 15:40 10/17/18 15:40 10/17/18 15:40 10/17/18 15:40 10/17/18 15:40 Laboratory Results 10/17/18 05:15 10/17/18 05:15 10/16/18 10/17/18 10/18/18 05:59 05:59 05:59 Intake Total 2094 950 Output Total 100 3 Balance 1993 947 PT 12.5 SEC (12.0-15.0) 10/09/18 18:04 INR 0.97 (0.83-1.16) 10/09/18 18:04 somnolent, unkempt bruising around the eye poor dentition rrr no mrg cta dec at bases soft nt nd no cce warm dry well perfused not oriented, somnolent, encephalopathic ICD10 Worksheet Patient Problems: Problems Problem Status Onset Anemia Acute Subdural hematoma Acute Thrombocytopenia Acute Abscess of lung with pneumonia Acute Acalculous cholecystitis Acute Alcoholic intoxication Acute C1 cervical fracture Acute Chronic Disease Mgmt/Transitional Care Acute Fall Acute Nausea & vomiting Acute Pneumonia Acute Pneumothorax Acute Ribs, multiple fractures Acute Scapula fracture Acute Syncope and collapse Acute
[2018-10-17] MEDS: QUEtiapine FUMARATE 50 MG TAB PO SCH (22:05)
[2018-10-17] MEDS: GABAPENTIN 400 MG CAP PO PRN (22:05)
[2018-10-18] MEDS ORDERED: POTASSIUM CL 10 MEQ TAB PO ONE (08:01)
[2018-10-18] MEDS: OXYCODONE/APAP 5/325 TAB PO PRN (09:04)
[2018-10-18] MEDS: SENNOSIDES/DOCUSATE SODIUM TAB PO SCH (13:46)
[2018-10-18] MEDS: DIVALPROEX ER 500 MG TAB PO SCH ×2 (13:47→23:39)
[2018-10-18] MEDS: LOSARTAN POTASSIUM 50 MG TAB PO SCH (13:50)
[2018-10-18] MEDS: THIAMINE HCL 100 MG TAB PO SCH (13:51)
[2018-10-18] MEDS: ESCITALOPRAM OXALATE 10 MG TAB PO SCH (13:51)
[2018-10-18] MEDS: ATORVASTATIN CALCIUM 20 MG TAB PO SCH (13:51)
[2018-10-18] MEDS: ATENOLOL 25 MG TAB PO SCH ×3 (13:53→23:59)
--- NOTE | 2018-10-18 14:25 | HOSPPROG ---
Hospitalist Progress Note Assessment/Plan: 73 year old male with hx of bipolar d/o and etoh abuse admitted with SDH and etoh withdrawal. First encounter chart reviewed. #Subdural Hematoma, Left Frontotemporal - neurosurgery has evaluated and patient stable, -no indication for surgery they signed off unless patient status changes. -Repeat CT reviewed and is stable. No surgical management currently. # metabolic encephalopathy: -overall improving however patient remains very somnolent and having memory issues which is different from usual baseline # Factor V Leiden and multiple PE: -holding AC given acute head bleed, -will need to discuss with NSG when/if we can consider resuming AC prior to discharge, -holding for now # acute alcohol w/d and abuse: -has been on CIWA however scores most recently very low, -most recent CIWA 2, continue to encourage cessation #Thrombocytopenia: -s/p platelet transfusion given bleed, platelets have been stable # hyponatremia: -has been mildly low, likely SIADH given acute head bleed #Macrocytosis: -in setting of chronic etoh abuse and likely due to same # bipolar d/o: - has had severe psychiatric issues in the past, will continue op meds and patient to f/u with usual care after dc # deconditioning: -patient quite weak and not safe for dc home independently, -continue to work with pt/ot, -needs snf PPX- SCDs, No AC FC Dispo- IP requires placement D/W CM Subjective: Up in chair. Feels ok. Somnolent Objective: Vital Signs Temp Pulse Resp BP Pulse Ox 37.1 C 59 L 17 67/39 L 91 L 10/18/18 11:42 10/18/18 13:53 10/18/18 11:42 10/18/18 13:53 10/18/18 11:42 Laboratory Results 10/17/18 05:15 10/18/18 05:07 10/17/18 10/18/18 10/19/18 05:59 05:59 05:59 Intake Total 950 400 Output Total 3 200 Balance 947 200 PT 12.5 SEC (12.0-15.0) 10/09/18 18:04 INR 0.97 (0.83-1.16) 10/09/18 18:04 - Physical Exam Constitutional: chronically ill appearing, unkempt, No obese Eyes: PERRL, anicteric sclera, EOMI Ears, Nose, Mouth, Throat: moist mucous membranes, hearing normal, ears appear normal Cardiovascular: regular rate and rhythym, No JVD, No edema Respiratory: no respiratory distress, no rales or rhonchi, reduced air movement Gastrointestinal: normoactive bowel sounds, No tenderness, No ascites Skin: warm, normal color, No mottled Musculoskeletal: normal joint ROM, no joint effusions, generalized weakness Neurologic: No AAOx3 Psychiatric: not anxious, poor insight, poor judgement, poor memory ICD10 Worksheet Patient Problems: Problems Problem Status Onset Syncope and collapse Acute Pneumonia Acute Abscess of lung with pneumonia Acute Alcoholic intoxication Acute C1 cervical fracture Acute Chronic Disease Mgmt/Transitional Care Acute Fall Acute Ribs, multiple fractures Acute Pneumothorax Acute Scapula fracture Acute Nausea & vomiting Acute Acalculous cholecystitis Acute Thrombocytopenia Acute Anemia Acute Subdural hematoma Acute
--- NOTE | 2018-10-18 17:56 | ASMTCMCOM ---
CM Note CM Note Notes: Today pt states he is adamant he will go home. IPR still assessing but pt is verbalizing he does not want to d/c to his brother Artis beltre after inpatient rehab and he does not want to go to subs use treatment program, he may be more appropriate for SNF. Pt PASRR triggers due to Bipolar, approved PASRR returned by [facility] and is placed in chart. CM did not have time to make referrals to SNF in case pt does decide he wants SNF. Pt may be a challenge to place in SNF due all the issues. Hospitalist Demetrio is updated that pt verbalizes he wants to go home, mentions there is some concern about pt ability to make medical decisions. Hospitalist Demetrio did not know if decision capability was documented so far in the hospitalization and this CM did not have time to look in chart. It does not look like BRUSH LOADER AND HANDLE ATTACHER has been able to complete an eval which can help shed some light on pt ability to make decisions, this CM did not have time to talk to BRUSH LOADER AND HANDLE ATTACHER today. This CM spoke with Rodney, he would welcome pt to his home and would like pt to have SNF rehab first, Rodney does not think pt wants any ETOH rehab now. Rodney lives in [facility] and pt has stated one reason he does not want to stay w Rodney is the remote location. D/c plan is TBD Date Signed: 10/18/2018 05:55 PM Electronically Signed By:VICENTE Padilla
[2018-10-18] MEDS: LEVOTHYROXINE 100 MCG TAB PO SCH (18:55)
[2018-10-18] MEDS: QUEtiapine FUMARATE 50 MG TAB PO SCH (23:39)
[2018-10-19] MEDS: LORazepam 2 MG/ML INJ IVP PRN ×6 (00:07→10:06)
[2018-10-19] MEDS: SENNOSIDES/DOCUSATE SODIUM TAB PO SCH ×3 (01:29→21:54)
[2018-10-19] MEDS: ACETAMINOPHEN 325 MG TAB PO PRN (03:35)
[2018-10-19] MEDS: chlordiazePOXIDE 25 MG CAP PO SCH ×4 (04:57→21:53)
[2018-10-19] MEDS: LEVOTHYROXINE 100 MCG TAB PO SCH (05:00)
[2018-10-19] MEDS: ATORVASTATIN CALCIUM 20 MG TAB PO SCH (09:50)
[2018-10-19] MEDS: ESCITALOPRAM OXALATE 10 MG TAB PO SCH (09:51)
[2018-10-19] MEDS: LOSARTAN POTASSIUM 50 MG TAB PO SCH (09:51)
[2018-10-19] MEDS: DIVALPROEX ER 500 MG TAB PO SCH ×2 (09:53→21:54)
[2018-10-19] MEDS: ATENOLOL 25 MG TAB PO SCH ×2 (09:54→21:54)
[2018-10-19] MEDS: THIAMINE HCL 100 MG TAB PO SCH (09:54)
[2018-10-19] MEDS ORDERED: POTASSIUM CL 10 MEQ TAB PO ONE ×2 (11:06→21:15)
--- NOTE | 2018-10-19 14:29 | ASMTCMCOM ---
CM Note CM Note Notes: Several SNF referrals sent in [employer] to area SNFs. Date Signed: 10/19/2018 02:28 PM Electronically Signed By:VICENTE Padilla
--- NOTE | 2018-10-19 14:56 | HOSPPROG ---
Hospitalist Progress Note Assessment/Plan: 73 year old male with hx of bipolar d/o and etoh abuse admitted with SDH and etoh withdrawal. #Subdural Hematoma, Left Frontotemporal - neurosurgery has evaluated and patient stable, -no indication for surgery they signed off unless patient status changes. -Repeat CT reviewed and is stable. No surgical management currently. # metabolic encephalopathy: -overall improving however patient remains very somnolent and having memory issues which is different from usual baseline # Factor V Leiden and multiple PE: -holding AC given acute head bleed, -will need to discuss with NSG when/if we can consider resuming AC prior to discharge, -holding for now # acute alcohol w/d and abuse: -has been on CIWA however scores most recently very low, -most recent CIWA 2, continue to encourage cessation #Thrombocytopenia: -s/p platelet transfusion given bleed, platelets have been stable # hyponatremia: -has been mildly low, likely SIADH given acute head bleed #Macrocytosis: -in setting of chronic etoh abuse and likely due to same # bipolar d/o: - has had severe psychiatric issues in the past, will continue op meds and patient to f/u with usual care after dc # deconditioning: -patient quite weak and not safe for dc home independently, -continue to work with pt/ot, -needs snf PPX- SCDs, No AC FC Dispo- IP requires placement D/W CM Subjective: No issues. Objective: Vital Signs Temp Pulse Resp BP Pulse Ox 36.5 C 72 14 110/60 95 10/19/18 11:26 10/19/18 11:26 10/19/18 11:26 10/19/18 11:26 10/19/18 11:26 Laboratory Results 10/17/18 05:15 10/19/18 05:00 10/18/18 10/19/18 10/20/18 05:59 05:59 05:59 Intake Total 400 200 Output Total 200 600 Balance 200 -400 PT 12.5 SEC (12.0-15.0) 10/09/18 18:04 INR 0.97 (0.83-1.16) 10/09/18 18:04 - Physical Exam Constitutional: appears nourished, chronically ill appearing Eyes: PERRL, anicteric sclera Ears, Nose, Mouth, Throat: moist mucous membranes, hearing normal Cardiovascular: No JVD, No edema Respiratory: no respiratory distress, reduced air movement Gastrointestinal: No tenderness, No ascites Skin: warm, normal color Musculoskeletal: generalized weakness, No no joint effusions Psychiatric: not anxious, poor insight, poor judgement, poor memory ICD10 Worksheet Patient Problems: Problems Problem Status Onset Syncope and collapse Acute Pneumonia Acute Abscess of lung with pneumonia Acute Alcoholic intoxication Acute C1 cervical fracture Acute Chronic Disease [facility]/Transitional Care Acute Fall Acute Ribs, multiple fractures Acute Pneumothorax Acute Scapula fracture Acute Nausea & vomiting Acute Acalculous cholecystitis Acute Thrombocytopenia Acute Anemia Acute Subdural hematoma Acute
--- NOTE | 2018-10-19 16:42 | ASMTCMCOM ---
CM Note CM Note Notes: Pt brother Rodney will fax the MDPOA tomorrow listing him and friend Laney Kelley, current MDPOA in chart lists pt Janet. Date Signed: 10/19/2018 04:41 PM Electronically Signed By:VICENTE Padilla
[2018-10-19] MEDS ORDERED: MAGNESIUM SULF 1 GM/DEXTROSE 100 ML IV ONE (17:00)
[2018-10-19] MEDS: QUEtiapine FUMARATE 50 MG TAB PO SCH (21:54)
[2018-10-19] MEDS: OXYCODONE/APAP 5/325 TAB PO PRN (21:57)
[2018-10-20] MEDS: LEVOTHYROXINE 100 MCG TAB PO SCH (05:41)
[2018-10-20] MEDS: chlordiazePOXIDE 25 MG CAP PO SCH ×3 (08:55→21:30)
[2018-10-20] MEDS: ESCITALOPRAM OXALATE 10 MG TAB PO SCH (08:57)
[2018-10-20] MEDS: ATORVASTATIN CALCIUM 20 MG TAB PO SCH (08:57)
[2018-10-20] MEDS: SENNOSIDES/DOCUSATE SODIUM TAB PO SCH ×2 (09:00→21:31)
[2018-10-20] MEDS: DIVALPROEX ER 500 MG TAB PO SCH ×2 (09:01→21:30)
[2018-10-20] MEDS: THIAMINE HCL 100 MG TAB PO SCH (09:03)
[2018-10-20] MEDS: ATENOLOL 25 MG TAB PO SCH ×2 (09:54→21:30)
[2018-10-20] MEDS: LOSARTAN POTASSIUM 50 MG TAB PO SCH (09:54)
--- NOTE | 2018-10-20 10:46 | NEUSURGPN ---
Assessment/Plan: Spoke with Dr Avilez and rashmi for anticoagulation per IM recommendations. Neurosurgery Physical Exam - Vitals, I&O, Labs I and O 10/19/18 10/20/18 10/21/18 05:59 05:59 05:59 Intake Total 200 100 Output Total 600 Balance -400 100 Intake: Oral (ml) 200 IV Infused (ml) 100 Magnesium Sulf 1 gm/ 100 Dextrose 100 ml @ 100 mls /hr IV ONCE ONE Rx#: [id number] Output: Urine (ml) 600 Incontinence 300 Urinal 300 Other: Number of Voids Incontinence 1 1 Toilet 1 Urinal 1 Number of Stools Bedside Commode 1 Incontinence 1 Vital Signs Temp Pulse Resp BP Pulse Ox 36.9 C 80 17 110/60 93 10/20/18 08:00 10/20/18 09:55 10/20/18 08:00 10/20/18 09:55 10/20/18 08:00 Laboratory Results 10/17/18 05:15 10/19/18 18:40 ICD10 Worksheet Patient Problems: Problems Problem Status Onset Anemia Acute Subdural hematoma Acute Thrombocytopenia Acute Abscess of lung with pneumonia Acute Acalculous cholecystitis Acute Alcoholic intoxication Acute C1 cervical fracture Acute Chronic Disease Mgmt/Transitional Care Acute Fall Acute Nausea & vomiting Acute Pneumonia Acute Pneumothorax Acute Ribs, multiple fractures Acute Scapula fracture Acute Syncope and collapse Acute
--- NOTE | 2018-10-20 10:49 | WOCRNPDOC ---
WOCRN Advanced Assessment Note - Skin Integrity Problem, Advanced Assess Right Ischial Tuberosity Pressure Injury Dressing Type: Open to Air Pressure Injury Stage: Stage 3 Pressure Injury Present on Admit: No Skin Integrity Problem Comment: Stage 3 pressure injury healed at this time. No new skin issues noted upon visualization. Heena DUQUE present. Wound care will sign off.
[2018-10-20] MEDS ORDERED: POTASSIUM CL 10 MEQ TAB PO ONE (12:51)
--- NOTE | 2018-10-20 14:17 | HOSPPROG ---
Hospitalist Progress Note Assessment/Plan: 73 year old male with hx of bipolar d/o and etoh abuse admitted with SDH and etoh withdrawal. First encounter, chart reviewed. #Subdural Hematoma, Left Frontotemporal -no indication for surgery they signed off unless patient status changes. -Repeat CT is stable. #headache -Tylenol prn -patient said it has been ongoing for days # metabolic encephalopathy -overall improving, more interactive per nursing staff -he was able to get OOB with therapy # Factor V Leiden and multiple PE -patient told me he has never been on OAC, reviewed [place] w pharmacy and none was noted except asa therapy -spoke w neurosurgery and ok to resume asa # acute alcohol w/d and abuse -no further s/sx #Thrombocytopenia -s/p platelet transfusion given bleed, platelets have been stable # hyponatremia -has been mildly low, likely SIADH given acute head bleed #Macrocytosis: -in setting of chronic etoh abuse # bipolar d/o: - has had severe psychiatric issues in the past # deconditioning: -patient quite weak and not safe for dc home independently, -continue to work with pt/ot, -needs snf Plan: hopefully, can dc tomorrow morning, will resume aspirin therapy; his brother Rodney Jung is MPOA and has requested to be called [phone] tomorrow prior to dc Subjective: Dagoberto said he has a headache. Objective: Vital Signs Temp Pulse Resp BP Pulse Ox 36.9 C 69 17 117/66 92 10/20/18 12:00 10/20/18 12:00 10/20/18 12:00 10/20/18 12:00 10/20/18 12:00 Laboratory Results 10/17/18 05:15 10/19/18 18:40 10/19/18 10/20/18 10/21/18 05:59 05:59 05:59 Intake Total 200 100 Output Total 600 Balance -400 100 PT 12.5 SEC (12.0-15.0) 10/09/18 18:04 INR 0.97 (0.83-1.16) 10/09/18 18:04 - Physical Exam Constitutional: chronically ill appearing, uncomfortable Eyes: PERRL Ears, Nose, Mouth, Throat: hearing normal Cardiovascular: regular rate and rhythym Respiratory: no respiratory distress Gastrointestinal: normoactive bowel sounds Skin: warm Musculoskeletal: generalized weakness Psychiatric: interacting appropriately, poor insight, poor judgement, poor memory ICD10 Worksheet Patient Problems: Problems Problem Status Onset Anemia Acute Subdural hematoma Acute Thrombocytopenia Acute Abscess of lung with pneumonia Acute Acalculous cholecystitis Acute Alcoholic intoxication Acute C1 cervical fracture Acute Chronic Disease Mgmt/Transitional Care Acute Fall Acute Nausea & vomiting Acute Pneumonia Acute Pneumothorax Acute Ribs, multiple fractures Acute Scapula fracture Acute Syncope and collapse Acute
[2018-10-20] MEDS: ACETAMINOPHEN 325 MG TAB PO PRN (16:50)
[2018-10-20] MEDS: QUEtiapine FUMARATE 50 MG TAB PO SCH (21:31)
[2018-10-21] MEDS: LEVOTHYROXINE 100 MCG TAB PO SCH (05:47)
--- NOTE | 2018-10-21 09:07 | HOSPPROG ---
Hospitalist Progress Note Assessment/Plan: 73 year old male with hx of bipolar d/o and etoh abuse admitted with SDH and etoh withdrawal. #Subdural Hematoma, Left Frontotemporal -no indication for surgery they signed off unless patient status changes. -Repeat CT is stable. #headache -Tylenol prn -no c/o of this today # metabolic encephalopathy -overall improving, more interactive per nursing staff -he was able to get OOB with therapy # Factor V Leiden and multiple PE -patient told me he has never been on OAC, reviewed [place] w pharmacy and none was noted except asa therapy -spoke w neurosurgery and ok to resume asa # acute alcohol w/d and abuse -no further s/sx #Thrombocytopenia -s/p platelet transfusion given bleed, platelets have been stable # hyponatremia -has been mildly low, likely SIADH given acute head bleed #Macrocytosis: -in setting of chronic etoh abuse # bipolar d/o: - has had severe psychiatric issues in the past # deconditioning: -patient quite weak and not safe for dc home independently, -continue to work with pt/ot, -needs snf Plan: dc today, will resume aspirin therapy; his brother Rodney Jung is MPOA and has requested to be called [phone]- I updated him on the plan of care. Subjective: Dagoberto said he wants to go home but explained to him he can't stand or even feed himself just yet. Objective: Vital Signs Temp Pulse Resp BP Pulse Ox 37.3 C 70 18 118/63 92 10/21/18 08:00 10/21/18 08:00 10/21/18 08:00 10/21/18 08:00 10/21/18 08:00 Laboratory Results 10/17/18 05:15 10/21/18 04:47 10/20/18 10/21/18 10/22/18 05:59 05:59 05:59 Intake Total 100 1040 Output Total 300 Balance 100 740 PT 12.5 SEC (12.0-15.0) 10/09/18 18:04 INR 0.97 (0.83-1.16) 10/09/18 18:04 - Physical Exam Constitutional: chronically ill appearing, unkempt Eyes: PERRL Ears, Nose, Mouth, Throat: hearing normal Cardiovascular: regular rate and rhythym Respiratory: no respiratory distress Skin: warm Musculoskeletal: generalized weakness Neurologic: other (alert) Psychiatric: flat affect ICD10 Worksheet Patient Problems: Problems Problem Status Onset Anemia Acute Subdural hematoma Acute Thrombocytopenia Acute Abscess of lung with pneumonia Acute Acalculous cholecystitis Acute Alcoholic intoxication Acute C1 cervical fracture Acute Chronic Disease Mgmt/Transitional Care Acute Fall Acute Nausea & vomiting Acute Pneumonia Acute Pneumothorax Acute Ribs, multiple fractures Acute Scapula fracture Acute Syncope and collapse Acute
--- NOTE | 2018-10-21 10:30 | PDIAF ---
- Diagnosis Diagnosis: subdural hematoma, alcohol use, Factor V leiden w hx of PE Code Status: Full Code - Medication Management Discharge Medications: electronically signed and located in the Home Medication List. - Orders Services needed: Physical Therapy, Occupational Therapy, Speech Language Pathologist Isolation Type: None Diet Recommendation: no restrictions on diet Diet Texture: Dysphagia 2 - Mechanically Altered - Chopped, Ground, Thin Liquids , Meds Whole in Puree Additional Instructions: Dagoberto's Provigil 200 mg daily, Topamax 25 mg bid were not resumed during his hospital stay. Talk w his therapist or the therapist at rehab in regards to resuming. He will be starting aspirin therapy as of this evening. Needs a follow up CT scan of his head sometime next week for f/u in regards to his subdural hematoma Followup with Dr Avilez. Stop drinking alcohol permanently, it's ruining your health. - Labs/Radiology Imaging Orders: CT scan next week with f/u with Dr Avilez - Follow Up Care Current Providers and Referrals: Robb Avilez MD [Medical Doctor] - (CALL FOR APT TO BE IN OFFICE MARNIEARIANNE 3-4 WEEKS. ) NONE *PRIMARY CARE P,. [Unknown] - As per Instructions
[2018-10-21] MEDS: ESCITALOPRAM OXALATE 10 MG TAB PO SCH (10:43)
[2018-10-21] MEDS: SENNOSIDES/DOCUSATE SODIUM TAB PO SCH (10:43)
[2018-10-21] MEDS: chlordiazePOXIDE 25 MG CAP PO SCH (10:45)
[2018-10-21] MEDS: DIVALPROEX ER 500 MG TAB PO SCH (10:45)
[2018-10-21] MEDS: LOSARTAN POTASSIUM 50 MG TAB PO SCH (10:46)
[2018-10-21] MEDS: THIAMINE HCL 100 MG TAB PO SCH (10:48)
[2018-10-21] MEDS: ATORVASTATIN CALCIUM 20 MG TAB PO SCH (10:48)
[2018-10-21] MEDS: ATENOLOL 25 MG TAB PO SCH (10:48)
[2018-10-21 10:49] VITALS: BP 108/60
--- NOTE | 2018-10-21 10:53 | GDS ---
[f rep st] DISCHARGE SUMMARY DISCHARGE DIAGNOSES: 1. Subdural hematoma in the left frontotemporal area. 2. Headaches. 3. Metabolic encephalopathy. 4. Factor 5 Leiden and multiple pulmonary emboli. 5. Acute alcohol withdrawal and abuse. 6. Thrombocytopenia. 7. Hyponatremia. 8. Macrocytosis. 9. Bipolar disorder. 10. Deconditioning. CONSULTATION: 1. Dr. Mohinder Villanueva. 2. Dr. Gamboa. 3. Dr. Robb Avilez. HISTORY AND HOSPITAL COURSE: Briefly, this patient is a 73-year-old male who was brought in on an M1 hold on 10/09/2018. He was brought in because his therapist did not believe he was competent. He had bruises all over his body. He drinks up to 12 vodka drinks a day. A CT scan was performed which showed a left-sided subdural hematoma. He was seen and evaluated by Neurosurgery, who said this was nonoperative. The goal was to keep his systolic blood pressure between 100 and 140. He also was treated for alcohol withdrawal. He has been very slow to improve and still is extremely weak. The plan is for him to go to [facility] today for strengthening. Also reviewed his care with his brother, Rodney. He is the patient's medical power of employment attorney. He is very concerned that his brother will likely drink again. At this time, we will see how he does at the rehabilitation facility and further followup with his psychiatrist. HOSPITAL COURSE PER PROBLEM: 1. Subdural hematoma. He will get a repeat CT scan of his head next week. There is no indication for surgery. 2. Headache. No complaints of this today. 3. Metabolic encephalopathy. This is improving overall. He has a flat affect. 4. Factor 5 Leiden and multiple PEs. He is not on any type of oral anticoagulation. He is on aspirin therapy. I spoke with Neurosurgery. They are okay for his aspirin to be resumed. Also spoke to his brother about my concern of his history of PEs. 5. Acute alcohol withdrawal and abuse, no longer withdrawing. 6. Thrombocytopenia. He was given a platelet transfusion. 7. Hyponatremia, resolved. 8. Macrocytosis. This is in the setting of chronic alcohol use. 9. Bipolar disorder. He has had severe psychiatric issues in the past. 10. Deconditioning, hopefully will gain strength doing physical therapy, occupational therapy, and speech therapy. DISCHARGE CONDITION: Stable. Blood pressure is 118/63, heart rate is 70, respiratory rate of 18, O2 sats on room air 90%, on 2 L are 92%, temperature is 37.3 Celsius. MEDICATIONS AT DISCHARGE: Please see the EMR. DISCHARGE INSTRUCTIONS: 1. To follow up with Dr. Avilez in the next few weeks and to get a repeat CT scan of his head within this week. 2. His Provigil and Topamax were not resumed, to further discuss with Psychiatry if these should be resumed. 3. Recommend that he stop alcohol permanently because it is ruining his health. Greater than 30 minutes discharging and coordinating the patient's care. /[id number]/MODL MTDD
--- NOTE | 2018-10-21 12:02 | ASMTDCNOTE ---
Case Management Discharge Discharge Order Complete? Answers: Yes Patient to Obtain Answers: Other Notes: [facility] Transportation Arranged Answers: Other Notes: [facility] will Pick (Date 10/21/2018 12:30 PM & Time) Faxed Final Orders Answers: Yes Agency/Facility Transfer Answers: Yes Report Printed & Faxed to Receiving Agency Family Notified Answers: Yes Discharge Comments Notes: D/w FLIGHT ENGINEER INSPECTOR, final orders faxed. Emely singh [employer] juan david, RN to call report. Discusse transfer with pt's brother Rodney, who agrees with plan, pt notifed of worm picker time and message left for friend Laney Kelley. Date Signed: 10/21/2018 12:01 PM Electronically Signed By:Rosmery Byrd RN
[2018-10-21] MEDS ORDERED: POTASSIUM CL 10 MEQ TAB PO ONE (12:25)
== END 2018-10-21 13:17 | DRG 82 ==
LOC: EDUNIT# → F2N 22:05 → F3N 10-17 11:16
PROVIDERS: ADMIT Student in an Organized Health Care Education/Training Program; ATTEND Internal Medicine
PROC: 30233R1 Transfusion of Nonautologous Platelets into Peripheral Vein, Percutaneous Approach (ICD-10-PCS; principal; 2018-10-10)
DX: S06.5X9A Traumatic subdural hemorrhage with loss of consciousness of unspecified duration, initial encounter (principal); W17.89XA Other fall from one level to another, initial encounter; G93.41 Metabolic encephalopathy; F10.239 Alcohol dependence with withdrawal, unspecified; E87.1 Hypo-osmolality and hyponatremia; L89.213 Pressure ulcer of right hip, stage 3; D68.2 Hereditary deficiency of other clotting factors; F31.9 Bipolar disorder, unspecified; E03.9 Hypothyroidism, unspecified; I10 Essential (primary) hypertension; Z79.82 Long term (current) use of aspirin; Z91.81 History of falling; Z98.1 Arthrodesis status; Z86.711 Personal history of pulmonary embolism; Z87.891 Personal history of nicotine dependence
CPT/HCPCS: 80305; 92507-GN; 92523-GN; 92526-GN; 92610-GN; 97116-GP; 97161-GP; 97166-GO; 97530-GO; 97530-GP; 97535-GO; G0480; G0515-GO; J2060; J3411; J3475; J3480; P9035; P9100

== ENCOUNTER → 2018-10-28 | Outpatient (CLI) | payer OTHER, MEDICARE | LOC: FIMAGING 12:52 | PROVIDERS: ATTEND Physician Assistant Surgical | DX: I62.00 Nontraumatic subdural hemorrhage, unspecified (principal) ==

== ENCOUNTER → 2018-12-31 | Outpatient (CLI) | payer OTHER, MEDICARE | LOC: BMCIMAGING 09:53 ==